=== PATIENT | female | born 1960 | race Caucasian/White ===

== ENCOUNTER 2020-07-21 16:14 | Emergency (ER) | payer OTHER, SELFPAY ==
[2020-07-21 16:28] VITALS: BP 144/92; PULSE 87; RESP 14; TEMP 36.7; O2SAT 99; BMI 27.7
--- NOTE | 2020-07-21 16:58 | HMH.EDUTC ---
[facility] [place] Disposition Clinical Impression: Muscle cramps Disposition: Home, Self-Care Condition on Discharge: Good Instructions: Nocturnal Leg Cramps Additional Instructions: follow up with pcp if symptoms worsen or do not improve return or be seen in ed Prescriptions: Cyclobenzaprine HCl [Flexeril 10mg tablet] 10 mg PO DAILY 7 Days #7 tab Transmission Status: Pending to [facility] Referrals: John Davenport MD [Primary Care Provider] - Time of Disposition: 17:05 Medical Decision Making - Dameon Inquiry Pt receiving controlled substance: No Vital Signs: 07/21/20 16:28 Temperature 98.1 F Temperature Source Oral Pulse Rate [Right] 87 Respiratory Rate 14 Blood Pressure [Right Arm] 144/92 H Blood Pressure Mean [Right Arm] 109 02 Sat by Pulse Oximetry 99 [facility] [place] HPI - General Chief complaint: Urgent Treatment Center Stated complaint: wants muscle relaxers for shoulder Time Seen by Provider: 07/21/20 16:58 Mode of Arrival: Ambulatory Source of Information: Patient Limitations: No Limitations Description of Symptoms (Recalled from Triage Doc. by RN): pt states the left side of her body is tingling. she says her L leg feels tight and her L arm is hurting. pt states she has been to multiple ERs and had full work ups and all theygive her muscle relaxers. HEENT Symptoms (Recalled from RN notes): No Resp Symptoms (Recalled from RN notes): No Skin Symptoms (Recalled from RN notes): No MS Symptoms (Recalled from RN notes): Yes (L leg tightness and L arm pain) Functional Status (Recalled from RN notes): na - History of Present Illness Provider Complaint: 60 yr old female presents for muscle tightness.pt states the left side of her body is tingling. she says her L leg feels tight and her L arm is hurting for over 5 months worse at night.pt states she has been to multiple ERs and had full work ups and all they give her muscle relaxers that help the issues. - Related Data Previous Rx's Medication Instructions Recorded Hydrocortisone [Hydrocortisone 1% 1 applicatio TP BID #1 tube 04/17/19 Cream 30gm Tube] Cyclobenzaprine HCl [Flexeril 10mg 10 mg PO DAILY 7 Days #7 tab 07/21/20 tablet] Allergies Allergy/AdvReac Type Severity Reaction Status Date / Time No Known Allergies Allergy Verified 07/21/20 16:28 - Worker's Comp Is this a Worker's Comp case?: No [facility] History - Hepatitis A Screen Drug use history?: No High risk sexual behaviors?: No History of sexually transmitted infection?: No Currently employed?: No Childcare worker?: No Do you have indoor plumbing?: Yes Do you have electricity?: Yes Attestation statement:: This patient has been screened for Hepatitis A risk factors. I have reviewed the patient's past medical history: Yes - Social History Alcohol Intake: never Occupational Status: employed ROS Obtained: Yes Systems reviewed as appropriate & no additional complaints - Constitutional Constitutional: Reports system reviewed and no additional complaints, except as docu, Denies fatigue - Eyes Eyes: Reports system reviewed and no additional complaints, except as docu, Denies dry eyes - ENT Ears, Nose, Mouth, and Throat: Reports system reviewed and no additional complaints, except as docu, Denies sore throat - Cardiovascular Cardiovascular: Reports system reviewed and no additional complaints, except as docu, Denies chest pain at rest - Respiratory Respiratory: Reports system reviewed and no additional complaints, except as docu, Denies wheezing - Gastrointestinal Gastrointestingal: Reports: system reviewed and no additional complaints, except as docu. Denies: nausea, vomiting - Genitourinary Female Genitourinary: Reports system reviewed and no additional complaints, except as docu - Musculoskeletal Musculoskeletal: Reports system reviewed and no additional complaints, except as docu, Denies joint pain - Integumentary/Breasts Skin/Breast: Reports syst
[2020-07-21 17:22] VITALS: BP 138/87; PULSE 90; RESP 16; TEMP 36.6
== END 2020-07-21 17:23 | disposition home or self-care (01) ==
PROVIDERS: Emergency Provider Nurse Practitioner Family; PCP Family Medicine
DX: R25.2 Cramp and spasm (principal); M25.512 Pain in left shoulder; R20.2 Paresthesia of skin
CPT/HCPCS: 99202; G0463

== ENCOUNTER 2021-01-01 10:59 | Emergency (ER) | payer OTHER, SELFPAY ==
[2021-01-01 11:55] VITALS: BP 158/83; PULSE 81; RESP 18; TEMP 36.6; O2SAT 100; BMI 27.6
[2021-01-01 12:05] VITALS: BP 158/83; PULSE 81; RESP 16; TEMP 36.7
--- NOTE | 2021-01-01 12:19 | HMH.EDUTC ---
[facility] [place] Disposition Clinical Impression: Bronchitis, Exposure to COVID-19 virus Disposition: Home, Self-Care Condition on Discharge: Good Instructions: Preventing the Spread of Coronavirus Discharge Instructions, DI for COVID-19 (Suspected or Confirmed ), DI for Acute Bronchitis Additional Instructions: Drink plenty of fluids. Take tylenol or ibuprofen for pain or fever. Take the medications as directed. Follow up with your regular doctor. GO TO THE ER FOR ANY WORSENING SYMPTOMS Quarantine until you know the results of your covid-19 test. If it is positive, the health department should call you and give you further instructions about your length of Quarantine and other things. Notify your school or workplace of your results and follow their instructions regarding return to work/school. The cough medication (promethazine dm) will make you drowsy, so don't drive or operate heavy machinery after taking it. Prescriptions: Promethazine/Dextromethorphan [Promethazine-Dm Syrup] 5 ml PO Q6HP PRN #240 ml PRN Reason: Cough [facility]: [facility] Azithromycin [Z-Lamont 250mg Tab*] 250 mg PO UD DOSE PK #6 tab Transmission Status: Pending to [facility] Referrals: John Davenport MD [Primary Care Provider] - Time of Disposition: 12:22 Medical Decision Making - Medical Records Medical records reviewed: No: I reviewed the patient's medical records. - Dameon Inquiry Pt receiving controlled substance: No Vital Signs: 01/01/21 11:55 01/01/21 12:05 Temperature 97.8 F 98.1 F Temperature Source Oral Pulse Rate 81 Pulse Rate [Left] 81 Respiratory Rate 18 16 Blood Pressure 158/83 H Blood Pressure [Right Arm] 158/83 H Blood Pressure Mean [Right Arm] 108 02 Sat by Pulse Oximetry 100 Orders (Tests/Meds): ORDERS Category Date Time Status Covid-19 Nasal PCR ([facility]) Routine Lab 01/01/21 11:55 Received [facility] [place] HPI - General Stated complaint: Coughing Time Seen by Provider: 01/01/21 12:19 Mode of Arrival: Ambulatory Source of Information: Patient Limitations: No Limitations Description of Symptoms (Recalled from Triage Doc. by RN): pt c/o a cough. son is positive for covid. HEENT Symptoms (Recalled from RN notes): No Resp Symptoms (Recalled from RN notes): Yes (cough) Skin Symptoms (Recalled from RN notes): No MS Symptoms (Recalled from RN notes): No Functional Status (Recalled from RN notes): na - History of Present Illness Provider Complaint: She states that since yesterday she has had a nonproductive cough. This cough woke her up several times last night. She denies any fever or chills. She denies any chest pain. She has been vaccinated against covid-19. - Related Data Previous Rx's Medication Instructions Recorded Hydrocortisone [Hydrocortisone 1% 1 applicatio TP BID #1 tube 04/17/19 Cream 30gm Tube] Cyclobenzaprine HCl [Flexeril 10mg 10 mg PO DAILY 7 Days #7 tab 07/21/20 tablet] Azithromycin [Z-Lamont 250mg Tab*] 250 mg PO UD DOSE PK #6 tab 01/01/21 Promethazine/Dextromethorphan 5 ml PO Q6HP PRN #240 ml 01/01/21 [Promethazine-Dm Syrup] Allergies Allergy/AdvReac Type Severity Reaction Status Date / Time No Known Allergies Allergy Verified 07/21/20 16:28 - Worker's Comp Is this a Worker's Comp case?: No [facility] History - Hepatitis A Screen Drug use history?: No High risk sexual behaviors?: No History of sexually transmitted infection?: No Currently employed?: No Childcare worker?: No Do you have indoor plumbing?: Yes Do you have electricity?: Yes Attestation statement:: This patient has been screened for Hepatitis A risk factors. I have reviewed the patient's past medical history: Yes - Social History Alcohol Intake: never Occupational Status: employed ROS Obtained: Yes All systems reviewed & no additional complaints - Constitutional Constitutional: Reports chills, Denies fever(s), Reports poor appetite, R
== END 2021-01-01 12:28 | disposition home or self-care (01) ==
PROVIDERS: Emergency Provider Nurse Practitioner Family; PCP Family Medicine
DX: U07.1 COVID-19 (principal)
CPT/HCPCS: 99202; C9803; G0463; U0003; U0005

== ENCOUNTER 2021-07-01 16:37 | Emergency (ER) | payer OTHER, SELFPAY ==
[2021-07-01 18:00] VITALS: BP 131/86; PULSE 76; RESP 19; TEMP 37; O2SAT 100; BMI 26.5
--- NOTE | 2021-07-01 18:11 | XR_ITS ---
PROCEDURE INFORMATION: Exam: XR Left Knee Exam date and time: 07/01/2021 6:11 PM Age: 61 years old Clinical indication: Pain; Knee; Left TECHNIQUE: Imaging protocol: XR Left knee. Views: 3 views. COMPARISON: No relevant prior studies available. FINDINGS: Bones/joints: Normal. Soft tissues: Normal. IMPRESSION: No acute findings.
--- NOTE | 2021-07-01 18:11 | XR_ITS ---
PROCEDURE INFORMATION: Exam: XR Left Shoulder Exam date and time: 07/01/2021 6:11 PM Age: 61 years old Clinical indication: Pain; Shoulder; Left TECHNIQUE: Imaging protocol: XR Left shoulder. Views: 2 or more views. COMPARISON: No relevant prior studies available. FINDINGS: Bones/joints: Normal. Soft tissues: Normal. IMPRESSION: No acute findings.
--- NOTE | 2021-07-01 18:24 | HMH.EDUTC ---
[facility] [place] Clinical Impression: Tendinopathy of left shoulder, Leg edema, left, Left leg pain Disposition: Home, Self-Care Condition on Discharge: Good Instructions: Shoulder Tendinopathy, DI for Shoulder Pain, DI for Leg Pain Additional Instructions: Rest the extremity. Elevate and rest your leg as much times as possible too. Take the medrol dose pack (steroids) for your shoulder pain. For your leg pain and swelling, I ordered a venous doppler to rule out a blood clot. The hospital cannot do this test until in the morning. They will call you at around 0800 and have you come in then to do it. Follow up with Dr. Beaver (orthopedics) for your shoulder issues. I put in a referral but you need to call his office and schedule an appointment. Follow up with your regular doctor. GO TO THE ER FOR ANY WORSENING SYMPTOMS Prescriptions: methylPREDNISolone [Medrol] 4 mg PO DIRECTED 6 Days #21 packet Transmission Status: Received by [facility]91 Referrals: Jonh Davenport MD [Primary Care Provider] - Darryn Beaver MD [Staff Physician] - Time of Disposition: 19:09 Medical Decision Making - Medical Records Medical records reviewed: No: I reviewed the patient's medical records. - Dameon Inquiry Pt receiving controlled substance: No Vital Signs: 07/01/21 18:00 07/01/21 18:56 Temperature 98.6 F 98.6 F Temperature Source Oral Pulse Rate 76 Pulse Rate [Left Brachial] 76 Respiratory Rate 19 19 Blood Pressure 131/86 Blood Pressure [Left Arm] 131/86 Blood Pressure Mean [Left Arm] 101 Blood Pressure Source [Left Arm] Automatic Cuff Blood Pressure Position [Left Arm] Sitting 02 Sat by Pulse Oximetry 100 Oxygen Delivery Method Room Air - Radiology Data #1 Image(s): Shoulder Image Reviewed: Yes I reviewed the patient's radiology image, Yes I have reviewed radiologist's interpretation Preliminary Findings: No Fracture Seen PROCEDURE INFORMATION: Exam: XR Left Shoulder Exam date and time: 07/01/2021 6:11 PM Age: 61 years old Clinical indication: Pain; Shoulder; Left TECHNIQUE: Imaging protocol: XR Left shoulder. Views: 2 or more views. COMPARISON: No relevant prior studies available. FINDINGS: Bones/joints: Normal. Soft tissues: Normal. IMPRESSION: No acute findings. - US Data US Images: Lower Extremity ED US Reviewed: Yes: I have reviewed the patient's US results, I have viewed radiologist's interpretation Preliminary Findings: Normal/NAD Findings Narrative: FINAL REPORT TECHNIQUE: Color Doppler, duplex Doppler and compression sonography of the left lower extremity deep venous systems was performed. CLINICAL HISTORY: .lt leg pain with chronic swelling FINDINGS: There is no evidence of deep venous thrombosis from the level of the groin to the calf. The veins are patent and compressible. IMPRESSION: No evidence of deep venous thrombosis left lower extremity. Reviewed, Interpreted and Dictated by Dean Powell III, MD Transcribed by Julio Deluca Authenticated by Dean Powell III, MD on 07/02/2021 04:15:59 PM [facility] HPI - General Stated complaint: pain l shoulder and leg Time Seen by Provider: 07/01/21 18:24 Mode of Arrival: Ambulatory Source of Information: Patient Limitations: No Limitations Description of Symptoms (Recalled from Triage Doc. by RN): PATIENT C/O LEFT SHOULDER PAIN AND PAIN BEHIND LEFT KNEE FOR A LONG TIME . NO KNOWN INJURY HEENT Symptoms (Recalled from RN notes): No Resp Symptoms (Recalled from RN notes): No Skin Symptoms (Recalled from RN notes): No MS Symptoms (Recalled from RN notes): No Functional Status (Recalled from RN notes): WNL - History of Present Illness Provider Complaint: She states that for the approx past 2 weeks she has had left left swelling from just below her knee down. She de
[2021-07-01 18:56] VITALS: BP 131/86; PULSE 76; RESP 19; TEMP 37; O2SAT 100
== END 2021-07-01 19:18 | disposition home or self-care (01) ==
PROVIDERS: Emergency Provider Nurse Practitioner Family; PCP Family Medicine
DX: M67.912 Unspecified disorder of synovium and tendon, left shoulder (principal); M79.605 Pain in left leg
CPT/HCPCS: 73030; 73562; 99213; G0463

== ENCOUNTER → 2021-07-02 13:48 | Outpatient (CLI) | payer OTHER, SELFPAY ==
--- NOTE | 2021-07-02 13:52 | CA_ITS ---
FINAL REPORT TECHNIQUE: Color Doppler, duplex Doppler and compression sonography of the left lower extremity deep venous systems was performed. CLINICAL HISTORY: .lt leg pain with chronic swelling FINDINGS: There is no evidence of deep venous thrombosis from the level of the groin to the calf. The veins are patent and compressible. IMPRESSION: No evidence of deep venous thrombosis left lower extremity. Reviewed, Interpreted and Dictated by Dean Powell III, MD Transcribed by Julio Deluca Authenticated by Dean Powell III, MD on 07/02/2021 04:15:59 PM [facility]
== END ==
PROVIDERS: PCP Nurse Practitioner Family; Visit Provider Nurse Practitioner Family
DX: M79.662 Pain in left lower leg (principal); R60.0 Localized edema
CPT/HCPCS: 93971

== ENCOUNTER 2021-10-06 15:23 | Emergency (ER) | payer OTHER, SELFPAY ==
[2021-10-06 15:29] VITALS: BP 188/87; PULSE 114; O2SAT 99
[2021-10-06 15:34] VITALS: BP 188/87; PULSE 102; RESP 16; TEMP 36.9; O2SAT 97; BMI 27.3
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
[2021-10-06 17:30] VITALS: BP 131/69; PULSE 78; O2SAT 100
--- NOTE | 2021-10-06 17:31 | PC.NURSE ---
checked on pt, given blanket for comfort
[2021-10-06 18:00] VITALS: BP 132/67
[2021-10-06 18:10] VITALS: BP 132/67; PULSE 83; RESP 16; TEMP 36.9; O2SAT 100
== END 2021-10-06 18:11 | disposition home or self-care (01) ==
PROVIDERS: Emergency Provider Emergency Medicine; PCP Nurse Practitioner Family
DX: S46.912A Strain of unspecified muscle, fascia and tendon at shoulder and upper arm level, left arm, initial encounter (principal); S20.211A Contusion of right front wall of thorax, initial encounter; S80.212A Abrasion, left knee, initial encounter; V49.49XA Driver injured in collision with other motor vehicles in traffic accident, initial encounter; M24.541 Contracture, right hand; M85.80 Other specified disorders of bone density and structure, unspecified site; M19.012 Primary osteoarthritis, left shoulder
CPT/HCPCS: 71101; 73030; 73130; 73562; 99284

== ENCOUNTER 2022-01-09 20:58 | Emergency (ER) | payer OTHER, SELFPAY ==
[2022-01-09 21:18] VITALS: BP 178/104; PULSE 93; RESP 18; TEMP 36.7; O2SAT 98; BMI 25.7
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
[2022-01-09 21:30] VITALS: BP 158/89; PULSE 89; O2SAT 98
--- NOTE | 2022-01-09 21:56 | CT_ITS ---
PROCEDURE INFORMATION: Exam: CTA Abdomen and Pelvis With Contrast Exam date and time: 01/09/2022 10:36 PM Age: 61 years old Clinical indication: Abnormal findings; Abnormal diagnostic imaging exam; Abnormality: Calcific density noted on lumbar spine exam; Additional info: R/O splenic aneurysm TECHNIQUE: Imaging protocol: Computed tomographic angiography of the abdomen and pelvis with contrast. 3D rendering (Not supervised by radiologist): MIP and/or 3D reconstructed images were created by the technologist. Radiation optimization: All CT scans at this facility use at least one of these dose optimization techniques: automated exposure control; mA and/or kV adjustment per patient size (includes targeted exams where dose is matched to clinical indication); or iterative reconstruction. Contrast material: ISOVUE; Contrast volume: 100 ml; Contrast route: INTRAVENOUS (IV); COMPARISON: CR XR HIP LT 2-3V W/PELVIS 01/09/2022 9:25 PM FINDINGS: Lungs: Clear basilar lung parenchyma. Pleural spaces: No pleural fluid. Heart: Normal heart size. Aorta: No aortic aneurysm. No aortic dissection. Celiac trunk and mesenteric arteries: Exam confirms a medial splenic artery aneurysm measuring 2.0 x 2.3 x 1.9 cm. Dense calcific wall noted. No significant thrombus. Remainder of the splenic artery is tortuous and normal in caliber. Renal arteries: No occlusion or significant stenosis. Right iliac arteries: No occlusion or significant stenosis. Left iliac arteries: No occlusion or significant stenosis. Liver: No mass. Gallbladder and bile ducts: Contracted postprandial gallbladder. Pancreas: Fatty atrophy of the pancreas. Spleen: Unremarkable. No splenomegaly. Adrenal glands: Unremarkable. No mass. Kidneys and ureters: Kidneys enhance symmetrically and demonstrate no evidence of mass, calculus, obstruction, or inflammation. Stomach and bowel: Unremarkable. No obstruction. No mucosal thickening. Appendix: No evidence of appendicitis. Intraperitoneal space: Unremarkable. No free air. No significant fluid collection. Lymph nodes: Unremarkable. No enlarged lymph nodes. Urinary bladder: Unremarkable. No mass. Reproductive: Unremarkable as visualized. Bones/joints: Normal appearance of the visualized ribs and lower thoracic spine. Lumbar spine demonstrates very mild endplate spurring. Spinal canal is widely patent. Neural foramina are patent throughout. Left greater than right sacroiliac osteoarthritis is noted. Soft tissues: Unremarkable. IMPRESSION: 1. Splenic artery aneurysm is confirmed measuring maximal diameter 2.3 cm. Consider interventional radiology or vascular surgery consultation for elective management. 2. Patent lumbar spinal canal and neural foramina. Left greater than right sacroiliac osteoarthritis.
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
[2022-01-09 22:16] LABS: Basophils # 0.1 K/mm3 (0-0.2); Basophils % 1.1 % (0.1-2.0); Eosinophils # 0.3 K/mm3 (0.0-0.4); Eosinophils % 3.2 % (0.1-12.0); Hematocrit 39.5 % (37.0-47.0); Hemoglobin 13.3 g/dL (12.2-16.2); Lymphocytes # 2.2 K/mm3 (0.7-4.5); Lymphocytes % 24.7 % (10-50); Mean Corpuscular HGB Conc 33.6 g/dL (31.8-35.4); Mean Corpuscular Hemoglobin 31.2 pg (27.0-31.2); Mean Corpuscular Volume 92.8 fl (81-99); Mean Platelet Volume 10.2 fl (7.4-10.4); Monocytes # 0.4 K/mm3 (0.1-1.0); Neutrophils # 5.8 K/mm3 (1.8-7.8); Neutrophils % 66.1 % (37.0-80.0); Platelet Count 250 K/mm3 (142-424); Red Blood Count 4.25 M/mm3 (4.20-5.40); Red Cell Distribution Width 13.7 % (11.5-17.5); White Blood Count 8.9 K/mm3 (4.8-10.8)
[2022-01-09 22:23] LABS: Chloride 99 mmol/L (98-107); Sodium 139 mmol/L (136-145)
[2022-01-09 22:26] LABS: Blood Urea Nitrogen 10 mg/dl (7-17); Creatinine Clearance Estimated 107 mL/min (50-200); Estimated Glomerular Filt Rate 102 ml/min (>60); GFR (African American) 123 ML/MIN (>60)
[2022-01-09 22:27] LABS: Carbon Dioxide 29 mmol/L (22.0-30.0); Glucose 137 mg/dl (74-100)
[2022-01-09 22:30] VITALS: BP 144/80; PULSE 94; O2SAT 98
[2022-01-09 22:32] LABS: C-Reactive Protein 8.3 mg/L (0-4)
[2022-01-09 23:00] VITALS: BP 148/63; PULSE 76; O2SAT 100
[2022-01-09 23:02] LABS: Erythrocyte Sedimentation Rate 40 mm/hr (0-30)
[2022-01-09 23:30] VITALS: BP 127/62; PULSE 67; O2SAT 95
[2022-01-09 23:50] VITALS: BP 148/74; PULSE 77; RESP 16; TEMP 36.6; O2SAT 97
== END 2022-01-09 23:52 | disposition home or self-care (01) ==
PROVIDERS: Emergency Provider Emergency Medicine; PCP Nurse Practitioner Family
DX: M54.40 Lumbago with sciatica, unspecified side (principal); M25.552 Pain in left hip; M25.562 Pain in left knee; I72.8 Aneurysm of other specified arteries; Z79.52 Long term (current) use of systemic steroids
CPT/HCPCS: 72100; 73502; 74174; 80048; 85025; 85651; 86140; 96374; 96375; 99285; Q9967

== ENCOUNTER 2022-01-23 13:00 | Outpatient (RCR) | payer OTHER, SELFPAY ==
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
== END 2022-02-24 11:29 | disposition home or self-care (01) ==
LOC: PT.CARL 13:00
PROVIDERS: PCP Nurse Practitioner Family; Visit Provider Student in an Organized Health Care Education/Training Program
DX: M24.541 Contracture, right hand (principal)
CPT/HCPCS: 97010; 97018; 97110; 97140; 97163

== ENCOUNTER 2022-02-12 11:27 | Emergency (ER) | payer OTHER, SELFPAY ==
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
[2022-02-12 11:42] VITALS: BMI 28.7
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
[2022-02-12 11:43] VITALS: BP 162/85; PULSE 80; RESP 17; TEMP 36.8; O2SAT 99; BMI 28.7
--- NOTE | 2022-02-12 11:58 | PC.NURSE ---
pt to rad
[2022-02-12 12:34] VITALS: BP 159/81; PULSE 82; RESP 18; TEMP 36.8; O2SAT 99
== END 2022-02-12 12:34 | disposition home or self-care (01) ==
PROVIDERS: Emergency Provider Nurse Practitioner Family; PCP Family Medicine
DX: M25.512 Pain in left shoulder (principal); M79.652 Pain in left thigh; V89.2XXA Person injured in unspecified motor-vehicle accident, traffic, initial encounter
CPT/HCPCS: 73030; 73552; 73560; 99213; G0463

== ENCOUNTER 2022-08-09 09:23 | Emergency (ER) | payer OTHER, SELFPAY ==
[2022-08-09 09:26] VITALS: BP 191/105; PULSE 73; RESP 16; TEMP 36.6; O2SAT 100; BMI 25.4
--- NOTE | 2022-08-09 09:39 | XR_ITS ---
PROCEDURE INFORMATION: Exam: XR Left Femur Exam date and time: 08/09/2022 9:41 AM Age: 62 years old Clinical indication: Pain; Knee; Left TECHNIQUE: Imaging protocol: Radiologic exam of the left femur. Views: 2 views. COMPARISON: CR XR FEMUR LT 2V 02/12/2022 11:50 AM FINDINGS: Bones/joints: Unremarkable. No acute fracture. No bony deformity. No bone lesion detected. No significant interval changes. Soft tissues: Unremarkable. IMPRESSION: Normal exam.
--- NOTE | 2022-08-09 09:39 | XR_ITS ---
PROCEDURE INFORMATION: Exam: XR Left Knee Exam date and time: 08/09/2022 9:42 AM Age: 62 years old Clinical indication: Pain; Knee; Left TECHNIQUE: Imaging protocol: Radiologic exam of the left knee. Views: 3 views. COMPARISON: CR XR KNEE LT 2V 02/12/2022 11:51 AM FINDINGS: Bones/joints: There are mild degenerative changes involving the medial knee compartment with some joint space narrowing and subchondral sclerosis. Remainder of the joint surfaces are preserved. No fracture or malalignment. Soft tissue: No significant joint effusion. IMPRESSION: Mild degenerative changes medial knee compartment. No acute abnormalities.
[2022-08-09 10:10] VITALS: BP 191/95; PULSE 73; RESP 16; TEMP 36.6; O2SAT 100; BMI 28.0
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
[2022-08-09 11:15] VITALS: BP 191/95; PULSE 73; RESP 20; TEMP 36.6; O2SAT 100
== END 2022-08-09 11:15 | disposition home or self-care (01) ==
LOC: ER 09:34 → UTC 09:38
PROVIDERS: Emergency Provider Nurse Practitioner Family; PCP Family Medicine
DX: M25.562 Pain in left knee (principal); I10 Essential (primary) hypertension
CPT/HCPCS: 73552; 73562; 99212; 99214; G0463

== ENCOUNTER 2023-09-29 15:33 | Emergency (ER) | payer OTHER, SELFPAY ==
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
--- NOTE | 2023-09-29 15:46 | CT_ITS ---
PROCEDURE INFORMATION: Exam: CTA Head With Contrast, Arteriography Exam date and time: 09/29/2023 4:29 PM Age: 63 years old Clinical indication: Injury or trauma; Blunt trauma; Head and neck; Patient HX: Fall last night; Additional info: Trauma, critical injury suspected TECHNIQUE: Imaging protocol: Computed tomographic angiography of the head with contrast. Exam focused on the arteries. 3D rendering (Not supervised by radiologist): MIP and/or 3D reconstructed images were created by the technologist. Radiation optimization: All CT scans at this facility use at least one of these dose optimization techniques: automated exposure control; mA and/or kV adjustment per patient size (includes targeted exams where dose is matched to clinical indication); or iterative reconstruction. Contrast material: IOSVUE 370; Contrast volume: 100 ml; Contrast route: INTRAVENOUS (IV); COMPARISON: CT HEAD/BRAIN WO CON 09/29/2023 4:26 PM FINDINGS: ANTERIOR CIRCULATION: Right internal carotid artery: Moderate calcific atherosclerotic disease of the right intracranial ICA resulting in moderate stenosis of the ophthalmic segment. Right middle cerebral artery: No occlusion or significant stenosis. No aneurysm. Right anterior cerebral artery: No occlusion or significant stenosis. No aneurysm. Left internal carotid artery: Moderate calcific atherosclerotic disease of the left intracranial ICA resulting in moderate stenosis of the ophthalmic segment. Left middle cerebral artery: No occlusion or significant stenosis. No aneurysm. Left anterior cerebral artery: No occlusion or significant stenosis. No aneurysm. POSTERIOR CIRCULATION: Right vertebral artery: No occlusion or significant stenosis. No aneurysm. Left vertebral artery: No occlusion or significant stenosis. No aneurysm. Basilar artery: No occlusion or significant stenosis. No aneurysm. Right posterior cerebral artery: No occlusion or significant stenosis. No aneurysm. Left posterior cerebral artery: No occlusion or significant stenosis. No aneurysm. Brain: No definite mass, mass effect, or midline shift. Cerebral ventricles: No ventriculomegaly. Bones/joints: Unremarkable. No acute fracture. Soft tissues: Low volume subcutaneous hematoma involving the posterior parietal soft tissues. IMPRESSION: 1. Moderate calcific atherosclerotic disease of the right intracranial ICA resulting in moderate stenosis of the ophthalmic segment. 2. Moderate calcific atherosclerotic disease of the left intracranial ICA resulting in moderate stenosis of the ophthalmic segment.
[2023-09-29 15:50] VITALS: BP 202/100; PULSE 92; RESP 18; O2SAT 98; BMI 27.4
--- NOTE | 2023-09-29 15:51 | ECG_ITS ---
APPROVED REPORT Exam: Resting ECG HR:98 bpm ECG Measurements Heart Rate 98 AXES MT 149 P 46 QRSd 73 QRS 41 QT 358 T 36 QTc 414 Conclusion SINUS RHYTHM NORMAL ECG Electronically signed by : SANJAY KAMARA, 09/29/2023 20:18:48
[2023-09-29 16:00] VITALS: BP 190/93; PULSE 83; RESP 20; O2SAT 99
[2023-09-29 16:07] LABS: Basophils % 0.7 % (0.1-2.0); Eosinophils # 0.1 K/mm3 (0.0-0.4); Eosinophils % 1.9 % (0.1-12.0); Hematocrit 39.5 % (37.0-47.0); Hemoglobin 13.1 g/dL (12.2-16.2); Lymphocytes # 1.7 K/mm3 (0.7-4.5); Lymphocytes % 26.6 % (10-50); Mean Corpuscular HGB Conc 33.1 g/dL (31.8-35.4); Mean Corpuscular Hemoglobin 31.1 pg (27.0-31.2); Mean Corpuscular Volume 93.9 fl (81-99); Mean Platelet Volume 9.8 fl (7.4-10.4); Monocytes # 0.3 K/mm3 (0.1-1.0); Monocytes % 5.2 % (1.7-9.3); Neutrophils # 4.1 K/mm3 (1.8-7.8); Neutrophils % 65.6 % (37.0-80.0); Platelet Count 245 K/mm3 (142-424); Red Cell Distribution Width 13.8 % (11.5-17.5); White Blood Count 6.3 K/mm3 (4.8-10.8)
[2023-09-29 16:12] LABS: Chloride 104 mmol/L (98-107); Potassium 3.7 mmoL/L (3.5-5.1); Prothrombin Time 10.8 seconds (10.1-12.5); Sodium 142 mmol/L (136-145)
[2023-09-29 16:14] LABS: Alanine Aminotransferase 23 U/L (12-78); Aspartate Amino Transferase 31 U/L (14-36); Blood Urea Nitrogen 4 mg/dl (7-17); Creatinine Clearance Estimated 63 mL/min (50-200); Estimated Glomerular Filt Rate 125 ml/min (>60); GFR (African American) 151 ML/MIN (>60)
[2023-09-29 16:15] LABS: Albumin Level 4.5 g/dl (3.5-5.0); Albumin/Globulin Ratio 1.3 (1.1-1.8); Alkaline Phosphatase 53 U/L (38-126); Anion Gap 13.7 mEq/L (5-15); Bilirubin,Total 0.5 mg/dl (0.2-1.3); Calcium 9.3 mg/dl (8.4-10.2); Carbon Dioxide 28 mmol/L (22.0-30.0); Globulin 3.5 g/dL (1.3-3.2); Glucose 150 mg/dl (74-100)
[2023-09-29] MEDS: IOPAMIDOL-370 (76%);100ML BOTTLE 100 ML IV (16:34)
[2023-09-29] MEDS: SODIUM CHLORIDE 0.9% 10ML SYR (RAD ONLY) 10 ML IV (16:34)
[2023-09-29] MEDS: 0.9 % SODIUM CHLORIDE 50 ML VIAL IV (16:34)
[2023-09-29 16:45] LABS: Thyroid Stimulating Hormone 1.31 uIU/mL (0.465-4.68)
[2023-09-29 17:00] VITALS: BP 159/76; PULSE 86; RESP 17; O2SAT 98
[2023-09-29] MEDS: LACTATED RINGERS 1000ML 1,000 ML 999 ML IV (17:09)
[2023-09-29 17:10] LABS: Microscopic, Urine URINE MICROSCOPIC (MICROSCOPIC)
[2023-09-29] MEDS: ACETAMINOPHEN 1,000MG/100ML VIAL 1000 MG IV (17:10)
[2023-09-29 17:12] LABS: Appearance,Urine CLEAR (Clear); Bilirubin,Urine Negative (Negative); Blood, Urine Negative (Negative); Color,Urine YELLOW (Yellow); Glucose,Urine (UA) Negative (Negative); Ketones,Urine Negative (Negative); Leukocyte Esterase,Urine 2+ (Negative); Nitrate,Urine Negative (Negative); PH,Urine 6.5 (5.0-8.5); Protein,Urine Negative (Negative); Specific Gravity, Urine <= 1.005 (1.005-1.030); Urobilinogen,Urine 0.2 EU/dl (0.2)
[2023-09-29] MEDS: ASPIRIN 81MG CHEWABLE TABLET 81 MG PO (17:19)
--- NOTE | 2023-09-29 17:38 | PC.NURSE ---
Called lab to check time remaining of [facility]A-[facility], states reading it right now .
[2023-09-29 17:41] LABS: Bacteria,Urine 4+ /lpf
[2023-09-29] MEDS: SULFA/TRIMETHOPRIM 1 TABLET 1 EACH PO (17:46)
[2023-09-29 17:52] VITALS: BP 166/89; PULSE 85; RESP 20; TEMP 36.6; O2SAT 99
--- NOTE | 2023-09-30 09:24 | PC.NURSE ---
urine culture discussed with , pt dc with bactdm, torsten until final report
--- NOTE | 2023-10-01 08:35 | PC.NURSE ---
final report shows sensitive for bactrim, reviewed with , NTD
== END 2023-09-29 18:05 | disposition home or self-care (01) ==
PROVIDERS: Physician Assistant; Emergency Provider Emergency Medicine; PCP Family Medicine
DX: R47.81 Slurred speech (principal); M99.07 Segmental and somatic dysfunction of upper extremity; R42 Dizziness and giddiness; R51.9 Headache, unspecified; N39.0 Urinary tract infection, site not specified; B96.29 Other Escherichia coli [E. coli] as the cause of diseases classified elsewhere; I10 Essential (primary) hypertension; Z86.73 Personal history of transient ischemic attack (TIA), and cerebral infarction without residual deficits; W19.XXXA Unspecified fall, initial encounter
CPT/HCPCS: 70450; 70496; 70498; 72125; 80053; 81001; 83735; 84443; 85025; 85610; 87086; 87088; 87186; 93005; 96361; 96374; 99285; J0131; J7120; Q9967

== ENCOUNTER 2023-09-30 11:47 | Outpatient (CLI) | payer OTHER, SELFPAY ==
--- NOTE | 2023-09-30 11:55 | XR_ITS ---
FINAL REPORT CLINICAL HISTORY: Left knee pain FINDINGS: Left knee Three views were obtained. There is no acute fracture or dislocation. There are mild degenerative changes. Small joint effusion is identified. IMPRESSION: Mild degenerative changes with small joint effusion. Reviewed, Interpreted and Dictated by Dean Powell III, MD Transcribed by Keisha Mckay Authenticated and [facility]
== END 2023-09-30 23:59 | disposition home or self-care (01) ==
PROVIDERS: PCP Family Medicine; Visit Provider Physician Assistant
DX: M25.562 Pain in left knee (principal)
CPT/HCPCS: 73562

== ENCOUNTER 2024-02-06 13:27 | Emergency (ER) | payer OTHER, SELFPAY ==
[2024-02-06 13:38] VITALS: BP 180/90; PULSE 94; RESP 13; TEMP 36.9; O2SAT 99; BMI 24.7
[2024-02-06 13:45] VITALS: BP 163/91; PULSE 86; O2SAT 97
--- NOTE | 2024-02-06 13:45 | PC.NURSE ---
dr molina at bedside
--- NOTE | 2024-02-06 14:00 | CT_ITS ---
PROCEDURE INFORMATION: Exam: CT Lumbar Spine Without Contrast Exam date and time: 02/06/2024 2:16 PM Age: 64 years old Clinical indication: Low back pain TECHNIQUE: Imaging protocol: Computed tomography of the lumbar spine without contrast. Radiation optimization: All CT scans at this facility use at least one of these dose optimization techniques: automated exposure control; mA and/or kV adjustment per patient size (includes targeted exams where dose is matched to clinical indication); or iterative reconstruction. COMPARISON: CR XR LUMBAR SPINE 2-3V 01/09/2022 9:25 PM FINDINGS: Bones/joints: There is no evidence of acute fracture.There is no evidence of malalignment or dislocation. Mild Broad-based disc bulge at L3/L4 and L4/L5 and L5/S1 consistent with degenerative disc disease. Pancreas: Pancreatic atrophy Soft tissues: Unremarkable. IMPRESSION: 1. There is no evidence of acute fracture.There is no evidence of malalignment or dislocation. 2. Mild Broad-based disc bulge at L3/L4 and L4/L5 and L5/S1 consistent with degenerative disc disease.
--- NOTE | 2024-02-06 14:00 | CT_ITS ---
PROCEDURE INFORMATION: Exam: CT Thoracic Spine Without Contrast Exam date and time: 02/06/2024 2:13 PM Age: 64 years old Clinical indication: Pain in thoracic spine; Additional info: Back pain TECHNIQUE: Imaging protocol: Computed tomography of the thoracic spine without contrast. Radiation optimization: All CT scans at this facility use at least one of these dose optimization techniques: automated exposure control; mA and/or kV adjustment per patient size (includes targeted exams where dose is matched to clinical indication); or iterative reconstruction. COMPARISON: CT CERVICAL SPINE WO CON 09/29/2023 4:28 PM FINDINGS: Bones/joints: There is no evidence of acute fracture.There is no evidence of malalignment or dislocation. Anterior osteophyte formation along the thoracic spine Soft tissues: Unremarkable. IMPRESSION: There is no evidence of acute fracture.There is no evidence of malalignment or dislocation.
[2024-02-06] MEDS: LIDOCAINE 5% TRANSDERMAL PATCH 1 EACH TP (14:08)
[2024-02-06] MEDS: DEXAMETHASONE 4MG/ML 1ML VIAL 10 MG IM (14:08)
[2024-02-06] MEDS: ACETAMINOPHEN 500MG TAB 1000 MG PO (14:09)
--- NOTE | 2024-02-06 14:11 | PC.NURSE ---
dr molina speaking with dr de luna, who is direct support professional for dr villalpando
--- NOTE | 2024-02-06 14:13 | PC.NURSE ---
on phone with dr villalpando
--- NOTE | 2024-02-06 14:14 | PC.NURSE ---
pt to scan via stretcher
--- NOTE | 2024-02-06 14:15 | PC.NURSE ---
dr molina speaking with dr gore
[2024-02-06 14:20] VITALS: BP 150/83; PULSE 92; O2SAT 100
--- NOTE | 2024-02-06 14:22 | PC.NURSE ---
dr molina at bedside to update pt and family
--- NOTE | 2024-02-06 14:29 | HMH.EDGENADL ---
Discharge Plan Disposition Patient Disposition: Home, Self-Care Prescriptions Prescriptions: New lidocaine 4 % adhesive patch,medicated 1 patch topical DAILY Qty: 5 0RF Rx Instructions: may leave on for up to 12 hrs prednisone 50 mg tablet 50 mg PO DAILY 5 Days Qty: 5 0RF Rx Instructions: Please begin 1 day after ED visit cyclobenzaprine 5 mg tablet 5 mg PO TID PRN (Reason: muscle spasm) 5 Days Qty: 15 0RF No Action aspirin 81 mg tablet,delayed release (DR/EC) 81 mg PO DAILY lisinopril 10 mg tablet 10 mg PO DAILY Qty: 90 1RF rosuvastatin 10 mg tablet 10 mg PO DAILY Qty: 90 1RF sulfamethoxazole-trimethoprim [Bactrim DS] 800-160 mg tablet 1 tab PO BID 10 Days Qty: 20 0RF Referrals Follow up/Referrals: Dean Ambriz MD [Staff Physician] - See instructions Rogelio Hernandez MD [Primary Care Provider] - See instructions Activity Restrictions/Add. Instructions Additional Instructions/Restrictions: As discussed with your worsening sciatica and the chronicity of this also in the setting of concern for possible breast cancer you certainly need an outpatient MRI of your thoracic and lumbar spine. Please continue to discuss this with your primary care doctor and if you continue to get pushback from your insurance company I recommend that you are physician personally discussed this with them. No definitive evidence of metastatic lesions in your CAT scans today. Regarding the hyperdense tissue/mass in your left breast I discussed the case with Dr. Ambriz who is agreeable to see you in his clinic and work this up further. Please call your primary care doctor and Dr. Ambriz for next available appointment on Thursday. You may take Tylenol in addition to the prescribed medications. Clinical Impressions Clinical Impression: Sciatica, Breast mass, left Print Language Print Language: Mauritian Discharge ED Provider: Geovanny Samano General Adult HPI General Chief complaint: PAIN Stated complaint: Pain in back and L leg, balance off Time Seen by Provider: 02/06/24 13:36 Mode of Arrival: Wheelchair Source of Information: Patient Limitations: No Limitations Description of Symptoms (Recalled from ER Triage Doc. by RN): pt presents to ED with c/o left lower back pain with radiation into left leg, ongoing since 2020. pts daughter at bedside reports pt has lump on left breat, while pt was being seen by pcp a few months ago pt refused examination. History of Present Illness HPI narrative: Patient is a 64-year-old with a history of stroke with chronic dysarthria presenting today with her daughter and friend with multiple complaints. She has been having several years of lower back pain radiating into her left leg which has been chronically worsening to the point where she is having difficulty walking secondary to the pain. She denies any saddle anesthesia, lower extremity weakness, bowel or bladder incontinence that is new recently, definitive history of cancer or fevers recently. Her second complaint today is that her family recently noticed a mass on her left breast they are unsure as to how long this has been there she is never had a mammogram or any type of diagnostic imaging in the past. Regarding the back pain they state that they recently had an MRI that was ordered but her insurance declined this. She does believe that she has had CT imaging in the past but does not recall exactly when this was. Related Data Home Medications ?Medication ?Instructions ?Recorded ?Confirmed aspirin 81 mg tablet,delayed 81 mg PO DAILY 10/01/23 10/01/23 release Previous Rx's ?Medication ?Instructions ?Recorded sulfamethoxazole 800 1 tab PO BID 10 days #20 tabs 09/29/23 mg-trimethoprim 160 mg tablet (Bactrim DS) lisinopril 10 mg tablet 10 mg PO DAILY #90 tabs 10/01/23 rosuvastatin 10 mg tablet 10 mg PO DAILY #90 tabs 10/01/23 cyclobenzaprine 5 mg tablet 5 mg PO TID PRN muscle spasm 5 02/06/24 days #15 tabs lidocaine 4 % topical patch 1 patch topical DAILY #5 ea 02/06/24 prednisone 50 mg tablet 50 mg PO DAILY 5 days #5 tabs 02/06/24 Allergies Allergy/AdvReac Type Severity Reaction Status Date / Time ibuprofen [From Advil] Allergy Swelling Verified 10/01/23 11:21 of Lip/Tongue/Throat [facility] Disclaimer: The information contained in this section may have been updated after the patient was seen, as this information can be updated by other users. Medical History Hypertension Splenic artery aneurysm Family History Father Heart attack Mother Heart attack Brother Cancer Social History Smoking Status: Never smoker alcohol intake: never current occupational status: disabled Travel in the last 8 weeks: None household members: children housing: house Other Medical History Have you received the Flu Vaccine for this season: Yes Have you received the Pneumonia Vaccine: No ROS Obtained: Yes All systems reviewed & no additional complaints except as documented Physical Exam General General appearance: alert and in no apparent distress Expanded Chest Exam Female Torso: 1. 2 x 2 cm area of hyperdense mass that is nonmobile no superficial areas of erythema or tenderness or abnormalities in the nipple or areola Respiratory Respiratory exam: Present normal lung sounds bilaterally Cardiovascular Cardiovascular exam: Present regular rate and normal rhythm Back Exam Back exam: Present other (No midline back pain in the thoracic or lumbar spine no paraspinal tenderness bilateral lower extremity neurovascular exam specifically motor exam is normal) Neurological Exam Neurological exam: Present alert and oriented X3; Absent motor sensory deficit Medical Decision Making Medical Records Screening: Per USPSTF and CDC recommendations, given the prevalence of disease in our region, it is our hospital?s policy to screen for HIV and viral Hepatitis for all patients aged 18 and over and those with ongoing risk factors. [place] Inquiry Pt receiving controlled substance: No Vital Signs: 02/06/24 13:38 02/06/24 13:45 Temperature 98.4 F Temperature Source Oral Pulse Rate 86 Pulse Rate [Left Radial] 94 H Respiratory Rate 13 Blood Pressure 163/91 H Blood Pressure [Right Arm] 180/90 H Blood Pressure Mean [Right Arm] 120 02 Sat by Pulse Oximetry 99 97 Oxygen Delivery Method Room Air Room Air Orders (Tests/Meds): ED MEDICATIONS Discontinued Medications Generic Name Dose Route Start Last Admin Trade Name Freq PRN Reason Stop Dose Admin Acetaminophen 1,000 mg 02/06/24 14:03 02/06/24 14:09 Acetaminophen 500mg Tab PO 02/06/24 14:04 1,000 mg ONCE ONE Administration Dexamethasone Sodium Phosphate 10 mg 02/06/24 14:00 02/06/24 14:08 Dexamethasone 4mg/Ml 1ml Vial IM 02/06/24 14:01 10 mg ONCE ONE Administration Ketorolac Tromethamine 30 mg 02/06/24 14:00 02/06/24 14:05 Ketorolac 30mg/Ml Vial IM 02/06/24 14:01 Not Given ONCE ONE Lidocaine 1 each 02/06/24 14:00 02/06/24 14:08 Lidocaine 5% Transdermal Patch TP 02/06/24 14:01 1 each ONCE ONE Administration ORDERS Category Date Time Status CT lumbar spine wo con Stat Cat Scan 02/06/24 14:[address] thoracic spine wo con Stat Cat Scan 02/06/24 14:00 Taken Medical Decision Narrative: Well-appearing from an acute standpoint 64-year-old here with a new breast mass/hyperdense tissue that has been undifferentiated in addition to chronic sciatica clinically. Given the new concern for possible metastatic cancer noncontrasted CT imaging was ordered to see if there is any definitive osseous lesion I personally interpreted these images and did not see any obvious abnormalities. Patient has a normal neurologic exam. No indication for any emergent MRI at the moment however she certainly does need an MRI given the chronicity of this also the concern for possible metastatic disease in the spine. It is the weekend and I do not have any MRI technicians to obtain that today before I have advised that she closely follow-up with her primary care doctor. I tried to call Dr. Hernandez but Dr. Gerber was on-call for his clinic and I spoke with Dr. Gerber who agrees with the plan and told me to have the patient call first thing on Thursday for an appointment. Regarding the breast mass we both felt that it was most appropriate for the patient to be quickly evaluated with our general surgeon and I spoke with Dr. Ambriz to discuss this further and he agrees with this plan. He states that she can call on Thursday for the next available appointment and he will proceed with diagnostic imaging. Patient was given symptomatic medications in the ED and sent home with this as well return precautions emphasized she was discharged in stable condition. Critical Care Critical Care Time Critical Care Time: No
[2024-02-06 14:33] VITALS: BP 150/83; PULSE 88; RESP 13; TEMP 36.7; O2SAT 98
== END 2024-02-06 14:34 | disposition home or self-care (01) ==
PROVIDERS: Emergency Provider Student in an Organized Health Care Education/Training Program; PCP Family Medicine
DX: M54.30 Sciatica, unspecified side (principal); N63.20 Unspecified lump in the left breast, unspecified quadrant; M54.50 Low back pain, unspecified; M79.605 Pain in left leg; R26.2 Difficulty in walking, not elsewhere classified
CPT/HCPCS: 72128; 72131; 96372; 99284; J1100

== ENCOUNTER 2024-02-23 08:02 | Outpatient (CLI) | payer OTHER, SELFPAY ==
--- NOTE | 2024-02-23 08:06 | US_ITS ---
PROCEDURE INFORMATION: Exam: US Left Breast, Complete MG Left Diagnostic Breast Tomosynthesis Exam date and time: 02/23/2024 9:41 AM Age: 64 years old Clinical indication: Left breast palpable lump TECHNIQUE: Imaging protocol: Complete ultrasound of all four quadrants of the left breast and the retroareolar regions, including ultrasound of the axilla when performed. Left Diagnostic tomosynthesis and 2D mammography including computer-aided detection (CAD) when performed. Unilateral or bilateral exam. Limited assessment due to difficulty positioning the patient. Additionally, right MLO view was not performed due to right arm paralysis COMPARISON: None FINDINGS: MAMMOGRAPHY: Breast composition: There are scattered areas of fibroglandular density. Breast mammogram findings: There is a 1.7 cm palpable spiculated mass in the inner left middle 1/3. This demonstrates features highly suggestive of malignancy. ULTRASOUND: Breast ultrasound findings: Hypoechoic spiculated shadowing palpable vascular mass along the 10 o'clock axis 6 cm from the nipple measures 2.0 x 1.6 x 1.6 cm. This has features highly suggestive of malignancy IMPRESSION: Ultrasound-guided biopsy is recommended to definitively characterize a left 10 o'clock palpable 2 cm mass which demonstrates features highly suggestive of malignancy Images are limited due to patient's upper extremity paralysis. Right MLO view was not performed ASSESSMENT: BI-RADS category 5: Highly suggestive of malignancy
== END 2024-02-23 23:59 | disposition home or self-care (01) ==
LOC: RAD 08:02
PROVIDERS: PCP Family Medicine; Visit Provider Surgery
DX: N63.20 Unspecified lump in the left breast, unspecified quadrant (principal)
CPT/HCPCS: 76641; 77062; 77066; G0279

== ENCOUNTER 2024-03-15 09:39 | Outpatient (CLI) | payer OTHER, SELFPAY ==
--- NOTE | 2024-03-15 09:40 | US_ITS ---
FINAL REPORT CLINICAL HISTORY: left breast mass -- DR.ALEX MARCOS --10:00 FINDINGS: ULTRASOUND-GUIDED LEFT BREAST CORE BIOPSY TECHNIQUE: Limited images were obtained to localize region of interest. The left breast was prepped in a routine sterile fashion and locally anesthetized with 1% lidocaine. Standard written informed consent was obtained. The biopsy needle was positioned within the outer periphery of the lesion. An approximately 2 cm lesion was identified at 10:00 within the left breast. A total of 3 passes were made with a 16 gauge core biopsy needle. A biopsy marker clip was deployed in satisfactory position. The clip was well visualized within the lesion of interest. No mammogram was obtained. Procedure was well tolerated . CONCLUSION: 1. Technically successful ultrasound guided core biopsy of left breast lesion as above. 2. Biopsy marker clip deployed Authenticated and ERN
== END 2024-03-15 23:59 | disposition home or self-care (01) ==
LOC: RAD 09:40
PROVIDERS: PCP Family Medicine; Visit Provider Family Medicine
DX: N63.22 Unspecified lump in the left breast, upper inner quadrant (principal)
CPT/HCPCS: 19083

== ENCOUNTER 2024-05-27 14:11 | Emergency (ER) | payer OTHER, SELFPAY ==
[2024-05-27] VITALS (8 sets, daily range): BP systolic 126–173; BP diastolic 62–81; PULSE 76–92; RESP 19; TEMP 36.7–37; O2SAT 91–98; BMI 21.9
--- NOTE | 2024-05-27 14:24 | [facility].EDGENADL ---
Discharge Plan Disposition Patient Disposition: Home, Self-Care Condition: Good Prescriptions Prescriptions: New ondansetron 4 mg tablet,disintegrating 4 mg PO Q8H PRN (Reason: nausea and vomiting) 4 Days Qty: 12 0RF oseltamivir [Tamiflu] 75 mg capsule 75 mg PO BID 5 Days Qty: 10 0RF No Action aspirin 81 mg tablet,delayed release (DR/EC) 81 mg PO DAILY lisinopril 10 mg tablet 10 mg PO DAILY Qty: 90 1RF rosuvastatin 10 mg tablet 10 mg PO DAILY Qty: 90 1RF codeine-guaifenesin 10-100 mg/5 mL liquid 10 ml PO Q4-6H PRN (Reason: cough) Qty: 120 1RF ondansetron 4 mg tablet,disintegrating 4 mg PO BID PRN (Reason: nausea and vomiting) 5 Days Qty: 10 2RF Referrals Follow up/Referrals: Rogelio Hernandez MD [Primary Care Provider] - See instructions Luis Alberto Sapp MD [Staff Physician] - See instructions Leo Patton MD [Staff Physician] - See instructions Jarad Rhoades MD [Staff Physician] - See instructions Activity Restrictions/Add. Instructions Additional Instructions/Restrictions: You were evaluated in the emergency department today and tested positive for the flu. I feel this is likely a cause of your symptoms. It also looks like you have signs of heart failure with enlarged heart, elevated BNP, and swelling. Please follow-up closely with cardiology for this. I recommend follow-up early next week. You have anemia with a hemoglobin of 9.7, which I also recommend close follow up for. Please also follow-up very closely with your primary care provider. Return to the emergency department for new or worsening symptoms. Clinical Impressions Clinical Impression: Bilateral edema of lower extremity, Generalized weakness, Cough, CHF (congestive heart failure), Influenza A Instructions Patient Instructions: DI for Heart Failure, DI for Influenza -- Adult, DI for Peripheral Edema -- Bilateral Print Language Print Language: [place] Discharge ED Provider: Crystal Phillips Adult HPI <Crystal Phillips MD - Last Filed: 05/27/24 14:51> General Chief complaint: Weakness Stated complaint: fever, cough, weakness Time Seen by Provider: 05/27/24 14:26 Mode of Arrival: Wheelchair Source of Information: Patient and Relative Limitations: No Limitations Description of Symptoms (Recalled from ER Triage Doc. by RN): pt presents to ED with daughter for weakness, cough, bilateral leg and feet swelling. pt was seen by pcp on thursday for this swelling. daughter reports pt began to have increased cough and weakness on thursday. no fevers at home. pt does have contracted right hand and flaccid right arm for hx of CVA. History of Present Illness HPI narrative: 64-year-old female with history of breast cancer, sciatica, CVA, right upper extremity contracture presents to the ER with daughter at bedside concern for cough, congestion, bilateral leg and feet swelling, generalized weakness, body aches, low-grade fever less than 100.4 at home. Patient has been intermittently taking Tylenol for symptoms. Most recent was earlier this morning. Reportedly patient was taken to PCP 5 days ago for bilateral lower extremity swelling. Review of records demonstrates patient was seen by Dr. Hernandez on 05/23/2024 with lower extremity swelling. She has been having difficulty ambulating secondary to back pain but has not had bowel or bladder incontinence. MRI is being arranged outpatient. He suspected that the swelling in the legs is related to being in a dependent position. No labs were performed at that visit. She was newly prescribed hydrocodone acetaminophen for pain management. Reportedly her cough medicine was also refilled according to daughter but does not seem to be controlling her cough at this time. Patient does not complain of any new pain. Daughter has noted that her right eye is red and had mild green discharge earlier today. No eye pain. No recent falls. Reportedly no vomiting or diarrhea, no hematuria or dysuria. No other concerns at this time. Related Data Home Medications ?Medication ?Instructions ?Recorded ?Confirmed aspirin 81 mg tablet,delayed 81 mg PO DAILY 10/01/23 05/27/24 release Previous Rx's ?Medication ?Instructions ?Recorded lisinopril 10 mg tablet 10 mg PO DAILY #90 tabs 10/01/23 rosuvastatin 10 mg tablet 10 mg PO DAILY #90 tabs 10/01/23 codeine 10 mg-guaifenesin 100 mg/5 10 ml PO Q4-6H PRN cough #120 mL 05/16/ mL oral liquid ondansetron 4 mg disintegrating 4 mg PO BID PRN nausea and 05/25/24 tablet vomiting 5 days #10 tabs ondansetron 4 mg disintegrating 4 mg PO Q8H PRN nausea and 05/27/24 tablet vomiting 4 days #12 tabs oseltamivir 75 mg capsule (Tamiflu) 75 mg PO BID 5 days #10 caps 05/27/24 Allergies Allergy/AdvReac Type Severity Reaction Status Date / Time ibuprofen (From Advil) Allergy Swelling Verified 05/27/24 14:23 of Lip/Tongue/Throat PFSH <Crystal Phillips MD - Last Filed: 05/27/24 14:51> PFS Disclaimer: The information contained in this section may have been updated after the patient was seen, as this information can be updated by other users. Medical History Hypertension Splenic artery aneurysm Family History Father Heart attack Mother Heart attack Brother Cancer Social History Smoking Status: Never smoker alcohol intake: never current occupational status: disabled Travel in the last 8 weeks: None household members: children housing: house Have you lived/traveled outside [place] in past 30 days?: No Contact w/someone who lives/traveled outside US past 30 days?: No Exposure to someone with infectious disease in past 14 days?: No Do you have a fever (greater than 100.4 F or 38 C)?: Yes Have you tested positive for COVID-19: No Exposed to someone with COVID-19 in past 14 days?: No Do you have a sore throat?: No Do you have a cough?: Yes Do you have any weakness?: Yes Do you have any diarrhea?: No Are you experiencing any unusual bleeding?: No Do you have any muscle aches/pain?: No Do you have any abdominal pain?: No Are you experiencing loss of taste or smell?: No Other Medical History Have you received the Flu Vaccine for this season: Yes Have you received the Pneumonia Vaccine: No <Crystal Phillips MD - Last Filed: 05/27/24 14:51> ROS Obtained: Yes Systems reviewed as appropriate & no additional complaints except as documented Per HPI Physical Exam <Crystal Phillips MD - Last Filed: 05/27/24 14:51> General General appearance: alert and in no apparent distress Comment: Appears older than stated age Head Head exam: atraumatic and normocephalic Eye Eye exam: Present PERRL, EOMI and conjunctival redness (Right eye with mild mucopurulent discharge) ENT ENT exam: Present mucous membranes moist Neck Neck exam: Present normal inspection and full ROM Chest Chest inspection: Present symmetric chest wall rise Respiratory Respiratory exam: Present normal lung sounds bilaterally and other (No respiratory distress, saturating 97% on room air); Absent respiratory distress, wheezes or stridor Cardiovascular Cardiovascular exam: Present regular rate and normal rhythm Abdominal Exam Abdominal exam: Present soft; Absent distention or tenderness Extremities Exam Extremities exam: Present full ROM and edema (2+ pitting edema in the bilateral lower extremities) Neurological Exam Neurological exam: Present alert and oriented X3; Absent motor sensory deficit (No new motor/sensory deficits, patient has right upper extremity contracture and weakness) Psychiatric Psychiatric exam: Present normal affect and normal mood Skin Skin exam: Present warm and dry Medical Decision Making <Crystal Phillips MD - Last Filed: 05/27/24 14:51> Medical Records Medical records reviewed: Yes I reviewed the patient's medical records. Screening: Per USPSTF and CDC recommendations, given the prevalence of disease in our region, it is our hospital?s policy to screen for HIV and viral Hepatitis for all patients aged 18 and over and those with ongoing risk factors. MR Comment: See HPI [place] Inquiry Pt receiving controlled substance: No Vital Signs: 05/27/24 14:12 05/27/24 14:19 05/27/24 14:30 Temperature 98.6 F Temperature Source Oral Pulse Rate 92 H 92 H Pulse Rate [Left Radial] 90 Respiratory Rate 19 Blood Pressure 152/81 H 173/72 H Blood Pressure [Right Arm] 152/81 H Blood Pressure Mean [Right Arm] 104 02 Sat by Pulse Oximetry 97 96 98 Oxygen Delivery Method Room Air Room Air Room Air 05/27/24 15:00 05/27/24 15:15 05/27/24 16:00 Temperature Temperature Source Pulse Rate 78 84 78 Pulse Rate [Left Radial] Respiratory Rate Blood Pressure 139/69 143/69 H 126/62 Blood Pressure [Right Arm] Blood Pressure Mean [Right Arm] 02 Sat by Pulse Oximetry 94 L 93 L 92 L Oxygen Delivery Method Room Air Room Air Room Air 05/27/24 16:30 Temperature Temperature Source Pulse Rate 76 Pulse Rate [Left Radial] Respiratory Rate Blood Pressure 141/63 H Blood Pressure [Right Arm] Blood Pressure Mean [Right Arm] 02 Sat by Pulse Oximetry 91 L Oxygen Delivery Method Room Air Lab Data Lab Results 05/27/24 14:23: WBC 5.4, RBC 3.16 L, Hgb 9.7 L, Hct 29.6 L, MCV 93.7, MCH 30.7, MCHC 32.8, RDW 13.0, Plt Count 281, MPV 11.0 H, Neut % (Auto) 74.6, Lymph % (Auto) 15.7, [place] % (Auto) 8.7, Eos % (Auto) 0.0 L, Baso % (Auto) 0.6, Neut # (Auto) 4.0, Lymph # (Auto) 0.9, [place] # (Auto) 0.5, Eos # (Auto) 0.0, Baso # (Auto) 0.0, D-Dimer 0.59 H, Sodium 133 L, Potassium 4.3, Chloride 93 L, Carbon Dioxide 28, Anion Gap 16.3 H, BUN 9, Creatinine 0.80, Estimated Creat Clear 49, Estimated GFR 72, Est GFR ( Amer) 88, Glucose 121 H, Calcium 8.6, Total Bilirubin 0.2, AST 34, ALT 22, Alkaline Phosphatase 56, Troponin I < 0.01, NT-Pro-B Natriuret Pep 3780 H, Total Protein 7.0, Albumin 4.2, Globulin 2.8, Albumin/Globulin Ratio 1.5, SARS-CoV-2 (PCR) Not detected, HCV Ab ROLANDO w/Rflx PCR Qn Negative, HIV Ag/Ab Combo Qual Negative, Influenza A Untype (PCR) Detected A, Influenza Type B (PCR) Not detected 05/27/24 14:23 05/27/24 14:23 Orders (Tests/Meds): ED MEDICATIONS Discontinued Medications Generic Name Dose Route Start Last Admin Trade Name Garth PRN Reason Stop Dose Admin Acetaminophen 1,000 mg 05/27/24 14:22 05/27/24 15:06 Acetaminophen 1,000mg/100ml Vial IV 05/27/24 14:23 1,000 mg ONCE ONE Administration Erythromycin 0.5 gm 05/27/24 14:30 05/27/24 15:07 Erythromycin Base 1 Gm Oint...G. OP 05/27/24 14:31 0.5 gm ONCE ONE Administration Lactated Ringer's 1,000 mls @ 999 mls/hr 05/27/24 14:22 05/27/24 15:07 Lactated Ringer's 1000 Ml Bag IV 05/27/24 15:22 999 mls/hr .Q1H1M ONE Administration ORDERS Category Date Time Status CXR --portable [XR chest portable] Stat Exams 05/27/24 14:28 Completed BNP [NT Pro Brain Natriuretic Pep.] Stat Lab 05/27/24 14:23 Completed CBC w/Auto Diff [Complete Blood Count Auto Diff] Stat Lab 05/27/24 14:23 Completed CMP [Comprehensive Metabolic Panel] Stat Lab 05/27/24 14:23 Completed D-Dimer Stat Lab 05/27/24 14:23 Completed HIV Combo Stat Lab 05/27/24 14:23 Completed Hepatitis C Ab Qual. W/ RFX Stat Lab 05/27/24 14:23 Completed Rapid PCR Covid and Flu A/B Stat Lab 05/27/24 14:23 Completed Trop I [Troponin I] Stat Lab 05/27/24 14:23 Completed Troponin I Q3H Lab 05/27/24 17:30 Ordered Troponin I Q3H Lab 05/27/24 20:30 Ordered Medical Decision Narrative: In summary, this 64-year-old female with comorbidities described in the HPI presents to the emergency department today with generalized malaise, body aches, bilateral lower extremity swelling, cough, congestion, subjective fevers. On initial evaluation patient is hemodynamically stable, afebrile, pitting edema in the bilateral lower extremities but cardiopulmonary exam is reassuring, patient has no respiratory distress, lung stern clear throughout, saturating well on room air. Patient is alert and oriented, family reports she is at baseline mentally. She does not have any unilateral swelling in the lower extremities, no redness or heat, no tender palpable cord. Differential diagnosis includes but is not limited to high suspicion for viral syndrome including COVID, influenza, also considered the possibility of pneumonia, lower suspicion for DVT or PE given patient has equal swelling in the bilateral lower extremities, no tachycardia or hypotension, saturating well on room air, however this was still considered and is being evaluated with labs initially. Considered ACS, dehydration, electrolyte abnormality, kidney dysfunction, among others. Based on these concerns, I ordered serum labs, cardiac workup, chest x-ray.. ECG personally interpreted demonstrates normal sinus rhythm, normal axis, rate 85, normal NM and QTc, no STEMI though artifact complicates interpretation. Repeat ECG pending. Patient received IV fluids, IV acetaminophen initially for treatment. Labs personally reviewed demonstrate no leukocytosis, anemia with hemoglobin 9.7, down from September 2023 but no other recent prior comparison, platelet normal, PT/INR normal. Chest x-ray personally interpreted does not demonstrate acute thoracic abnormality the cardiac silhouette is borderline enlarged, radiology read pending. CMP, troponin, BNP, D-dimer, swab pending. Patient handed off to Dr. Barbosa at physician shift change for further management and disposition. <Marcela Barbosa, DO - Last Filed: 05/27/24 16:59> Vital Signs: 05/27/24 14:12 05/27/24 14:19 05/27/24 14:30 Temperature 98.6 F Temperature Source Oral Pulse Rate 92 H 92 H Pulse Rate [Left Radial] 90 Respiratory Rate 19 Blood Pressure 152/81 H 173/72 H Blood Pressure [Right Arm] 152/81 H Blood Pressure Mean [Right Arm] 104 02 Sat by Pulse Oximetry 97 96 98 Oxygen Delivery Method Room Air Room Air Room Air 05/27/24 15:00 05/27/24 15:15 05/27/24 16:00 Temperature Temperature Source Pulse Rate 78 84 78 Pulse Rate [Left Radial] Respiratory Rate Blood Pressure 139/69 143/69 H 126/62 Blood Pressure [Right Arm] Blood Pressure Mean [Right Arm] 02 Sat by Pulse Oximetry 94 L 93 L 92 L Oxygen Delivery Method Room Air Room Air Room Air 05/27/24 16:30 Temperature Temperature Source Pulse Rate 76 Pulse Rate [Left Radial] Respiratory Rate Blood Pressure 141/63 H Blood Pressure [Right Arm] Blood Pressure Mean [Right Arm] 02 Sat by Pulse Oximetry 91 L Oxygen Delivery Method Room Air Lab Data Lab Results 05/27/24 14:23: WBC 5.4, RBC 3.16 L, Hgb 9.7 L, Hct 29.6 L, MCV 93.7, MCH 30.7, MCHC 32.8, RDW 13.0, Plt Count 281, MPV 11.0 H, Neut % (Auto) 74.6, Lymph % (Auto) 15.7, [place] % (Auto) 8.7, Eos % (Auto) 0.0 L, Baso % (Auto) 0.6, Neut # (Auto) 4.0, Lymph # (Auto) 0.9, [place] # (Auto) 0.5, Eos # (Auto) 0.0, Baso # (Auto) 0.0, D-Dimer 0.59 H, Sodium 133 L, Potassium 4.3, Chloride 93 L, Carbon Dioxide 28, Anion Gap 16.3 H, BUN 9, Creatinine 0.80, Estimated Creat Clear 49, Estimated GFR 72, Est GFR ( Amer) 88, Glucose 121 H, Calcium 8.6, Total Bilirubin 0.2, AST 34, ALT 22, Alkaline Phosphatase 56, Troponin I < 0.01, NT-Pro-B Natriuret Pep 3780 H, Total Protein 7.0, Albumin 4.2, Globulin 2.8, Albumin/Globulin Ratio 1.5, SARS-CoV-2 (PCR) Not detected, HCV Ab ROLANDO w/Rflx PCR Qn Negative, HIV Ag/Ab Combo Qual Negative, Influenza A Untype (PCR) Detected A, Influenza Type B (PCR) Not detected Orders (Tests/Meds): ED MEDICATIONS Discontinued Medications Generic Name Dose Route Start Last Admin Trade Name Freq PRN Reason Stop Dose Admin Acetaminophen 1,000 mg 05/27/24 14:22 05/27/24 15:06 Acetaminophen 1,000mg/100ml Vial IV 05/27/24 14:23 1,000 mg ONCE ONE Administration Erythromycin 0.5 gm 05/27/24 14:30 05/27/24 15:07 Erythromycin Base 1 Gm Oint...G. OP 05/27/24 14:31 0.5 gm ONCE ONE Administration Lactated Ringer's 1,000 mls @ 999 mls/hr 05/27/24 14:22 05/27/24 15:07 Lactated Ringer's 1000 Ml Bag IV 05/27/24 15:22 999 mls/hr .Q1H1M ONE Administration ORDERS Category Date Time Status CXR --portable [XR chest portable] Stat Exams 05/27/24 14:28 Completed BNP [NT Pro Brain Natriuretic Pep.] Stat Lab 05/27/24 14:23 Completed CBC w/Auto Diff [Complete Blood Count Auto Diff] Stat Lab 05/27/24 14:23 Completed CMP [Comprehensive Metabolic Panel] Stat Lab 05/27/24 14:23 Completed D-Dimer Stat Lab 05/27/24 14:23 Completed HIV Combo Stat Lab 05/27/24 14:23 Completed Hepatitis C Ab Qual. W/ RFX Stat Lab 05/27/24 14:23 Completed Rapid PCR Covid and Flu A/B Stat Lab 05/27/24 14:23 Completed Trop I [Troponin I] Stat Lab 05/27/24 14:23 Completed Troponin I Q3H Lab 05/27/24 17:30 Ordered Troponin I Q3H Lab 05/27/24 20:30 Ordered ECG Data Tracing #1: I reviewed this ECG and interpreted as documented below: Normal sinus rhythm with ventricular rate of [address] changes concerning for ischemia. Normal axis and intervals ECG initial impression date: 05/27/24 ECG initial impression time: 15:32 Medical Decision Narrative: In summary, this 64-year-old female with comorbidities described in the HPI presents to the emergency department today with generalized malaise, body aches, bilateral lower extremity swelling, cough, congestion, subjective fevers. On initial evaluation patient is hemodynamically stable, afebrile, pitting edema in the bilateral lower extremities but cardiopulmonary exam is reassuring, patient has no respiratory distress, lung stern clear throughout, saturating well on room air. Patient is alert and oriented, family reports she is at baseline mentally. She does not have any unilateral swelling in the lower extremities, no redness or heat, no tender palpable cord. Differential diagnosis includes but is not limited to high suspicion for viral syndrome including COVID, influenza, also considered the possibility of pneumonia, lower suspicion for DVT or PE given patient has equal swelling in the bilateral lower extremities, no tachycardia or hypotension, saturating well on room air, however this was still considered and is being evaluated with labs initially. Considered ACS, dehydration, electrolyte abnormality, kidney dysfunction, among others. Based on these concerns, I ordered serum labs, cardiac workup, chest x-ray.. ECG personally interpreted demonstrates normal sinus rhythm, normal axis, rate 85, normal NM and QTc, no STEMI though artifact complicates interpretation. Repeat ECG pending. Patient received IV fluids, IV acetaminophen initially for treatment. Labs personally reviewed demonstrate no leukocytosis, anemia with hemoglobin 9.7, down from September 2023 but no other recent prior comparison, platelet normal, PT/INR normal. Chest x-ray personally interpreted does not demonstrate acute thoracic abnormality the cardiac silhouette is borderline enlarged, radiology read pending. CMP, troponin, BNP, D-dimer, swab pending. Patient handed off to Dr. Barbosa at physician shift change for further management and disposition. Familia DO: I assumed care of the patient at 1500. CBC demonstrates anemia with hemoglobin 9.7. I do not have any recent labs to compare to except for from September 2023. Patient is stable with no tachycardia, hypotension, or notable sources of bleeding. She denies melena or any other symptoms of bleeding. Chemistry demonstrates mild hyponatremia, mildly low chloride, mildly elevated anion gap, which I feel is likely from intravascular depletion in the setting of poor oral intake. She has an elevated BNP with cardiomegaly noted on chest x-ray, but lung exam is reassuring. No known history of heart failure. I independently interpreted x-ray and did not note any signs of overt pulmonary edema. Given this, I feel she would be appropriate for outpatient follow-up with cardiology for further evaluation and management of this. She did test positive for the flu A, which I feel is likely the culprit and causing her symptoms. Patient was washed in the emergency department for a brief period and did not desaturate, even while sleeping. She is resting comfortably with reassuring vital signs. At this time, I feel she is appropriate for discharge with instructions for supportive management of flu. Given high risk with multiple comorbidities, I prescribed Tamiflu and Zofran. Strict return precautions were given and the patient was discharged after all questions were answered. Critical Care <Crystal Phillips MD - Last Filed: 05/27/24 14:51> Critical Care Time Critical Care Time: No
--- NOTE | 2024-05-27 14:28 | XR_ITS ---
PROCEDURE INFORMATION: Exam: XR Chest Exam date and time: 05/27/2024 2:29 PM Age: 64 years old Clinical indication: Other: Cough leg swelling bilaterally TECHNIQUE: Imaging protocol: Radiologic exam of the chest. Views: 1 view. COMPARISON: CR XR RIBS RT MIN 3V W CXR1V 10/06/2021 4:09 PM FINDINGS: Lungs: Low lung volumes with bronchovascular crowding. No focal consolidation. Pleural spaces: No pneumothorax or pleural effusion. Heart/Mediastinum: Apparent cardiomegaly, accentuated by low volumes. Bones/joints: No acute osseous or soft tissue abnormality. IMPRESSION: 1. Low lung volumes with bronchovascular crowding. 2. Apparent cardiomegaly.
--- NOTE | 2024-05-27 14:30 | PC.NURSE ---
XRAY AT BS
[2024-05-27 14:31] LABS: Coronavirus 19, PCR Not Detected (NotDetected); Influenza B, PCR Not Detected (NotDetected)
[2024-05-27 14:36] LABS: Basophils % 0.6 % (0.1-2.0); Hematocrit 29.6 % (37.0-47.0); Hemoglobin 9.7 g/dL (12.2-16.2); Lymphocytes # 0.9 K/mm3 (0.7-4.5); Lymphocytes % 15.7 % (10-50); Mean Corpuscular HGB Conc 32.8 g/dL (31.8-35.4); Mean Corpuscular Hemoglobin 30.7 pg (27.0-31.2); Mean Corpuscular Volume 93.7 fl (81-99); Monocytes # 0.5 K/mm3 (0.1-1.0); Monocytes % 8.7 % (1.7-9.3); Neutrophils % 74.6 % (37.0-80.0); Platelet Count 281 K/mm3 (142-424); Red Blood Count 3.16 M/mm3 (4.20-5.40); White Blood Count 5.4 K/mm3 (4.8-10.8)
--- NOTE | 2024-05-27 14:44 | ECG_ITS ---
APPROVED REPORT Exam: Resting ECG HR:85 bpm ECG Measurements Heart Rate 85 AXES NM 125 P 56 QRSd 73 QRS 62 QT 354 T 55 QTc 397 Conclusion SINUS RHYTHM MINIMAL ST DEPRESSION [0.025+ mV ST DEPRESSION] No STEMI, difficult interpretation secondary to artifact, see repeat ECG Electronically signed by : GIOVANNI NANCE, 05/28/2024 07:10:46
[2024-05-27 14:47] LABS: Alanine Aminotransferase 22 U/L (12-78); Albumin Level 4.2 g/dl (3.5-5.0); Albumin/Globulin Ratio 1.5 (1.1-1.8); Alkaline Phosphatase 56 U/L (38-126); Anion Gap 16.3 mEq/L (5-15); Aspartate Amino Transferase 34 U/L (14-36); Bilirubin,Total 0.2 mg/dl (0.2-1.3); Blood Urea Nitrogen 9 mg/dl (7-17); Calcium 8.6 mg/dl (8.4-10.2); Carbon Dioxide 28 mmol/L (22.0-30.0); Chloride 93 mmol/L (98-107); Creatinine Clearance Estimated 49 mL/min (50-200); Estimated Glomerular Filt Rate 72 ml/min (>60); GFR (African American) 88 ML/MIN (>60); Globulin 2.8 g/dL (1.3-3.2); Glucose 121 mg/dl (74-100); Potassium 4.3 mmoL/L (3.5-5.1); Sodium 133 mmol/L (136-145)
[2024-05-27 14:52] LABS: D-Dimer 0.59 ug/mL (0.0-0.5)
[2024-05-27 14:55] LABS: Influenza A, PCR Detected (NotDetected)
[2024-05-27 14:58] LABS: NT Pro Brain Natriuretic Pep. 3780 pg/mL (0-125)
[2024-05-27] MEDS: ACETAMINOPHEN 1,000MG/100ML VIAL 1000 MG IV (15:06)
[2024-05-27 15:07] LABS: Troponin I < 0.01 ng/ml (0.00-0.034)
[2024-05-27] MEDS: ERYTHROMYCIN BASE 1 GM OINT...G. 0.5 GM OP (15:07)
[2024-05-27] MEDS: LACTATED RINGERS 1000ML 1,000 ML 999 ML IV (15:07)
--- NOTE | 2024-05-27 15:30 | ECG_ITS ---
APPROVED REPORT Exam: Resting ECG HR:79 bpm ECG Measurements Heart Rate 79 AXES OH 130 P 53 QRSd 71 QRS 63 QT 367 T 48 QTc 402 Conclusion SINUS RHYTHM NORMAL ECG Electronically signed by : GIOVANNI NANCE, 05/28/2024 07:10:22
--- NOTE | 2024-05-27 15:42 | PC.NURSE ---
PT RESTING IN BED TURNED ROOM LIGHT OF PER PT REQUEST CALL LIGHT IN REACH NO OTHER NEEDS AT THIS TIME
[2024-05-27 15:49] LABS: HIV Combo NEGATIVE (Negative)
[2024-05-27 15:56] LABS: Hepatitis C Ab Qual. W/ RFX NEGATIVE (Negative)
== END 2024-05-27 17:41 | disposition home or self-care (01) ==
PROVIDERS: Emergency Provider Emergency Medicine; PCP Family Medicine
DX: J10.1 Influenza due to other identified influenza virus with other respiratory manifestations (principal); I50.9 Heart failure, unspecified; R60.0 Localized edema; R50.9 Fever, unspecified; R53.1 Weakness; R05.9 Cough, unspecified; R09.81 Nasal congestion; M79.10 Myalgia, unspecified site
CPT/HCPCS: 71045; 80053; 83880; 84484; 85025; 85378; 86803; 87389; 87636; 93005; 96361; 96374; 99284; J0131; J7120

== ENCOUNTER 2024-05-28 02:22 | Emergency (ER) | payer OTHER, SELFPAY ==
[2024-05-28 02:30] VITALS: PULSE 84; O2SAT 93
[2024-05-28 02:32] VITALS: BP 143/78; PULSE 85; RESP 20; TEMP 37.1; O2SAT 93; BMI 23.0
--- NOTE | 2024-05-28 02:39 | PC.NURSE ---
Pt assisted out of the car and into a wheelchair. Pt assisted 2 person into stretcher. Pt able to bear weight on left foot. Pt has significant deficits in right arm and leg. Skin pink warm and dry REsp full and easy Speech appropriate but very difficulty to decipher Daughter states this is the patient's normal speech.
[2024-05-28 03:00] VITALS: BP 146/64; PULSE 80; O2SAT 93
--- NOTE | 2024-05-28 03:11 | PC.NURSE ---
REspitory therapy at bedside to give breathing treatments
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
[2024-05-28] MEDS: IPRATROPIUM/ALBUTEROL 3 ML NEB 6 ML IH (03:17)
[2024-05-28 03:30] VITALS: BP 145/71; PULSE 104; O2SAT 93
[2024-05-28] MEDS: AEROCHAMBER/OPTIHALER 1 UNIT MC (04:17)
[2024-05-28] MEDS: ALBUTEROL-HFA 90MCG/PUFF INHALER 8GM 2 PUFF IH (04:17)
[2024-05-28 04:18] VITALS: BP 123/71; PULSE 100; RESP 20; TEMP 37.1; O2SAT 95
--- NOTE | 2024-05-28 04:26 | PC.NURSE ---
Pt assisted to car in wheelchair
== END 2024-05-28 04:26 | disposition home or self-care (01) ==
PROVIDERS: Emergency Provider Emergency Medicine; PCP Family Medicine
DX: R06.02 Shortness of breath (principal); R06.2 Wheezing; J10.1 Influenza due to other identified influenza virus with other respiratory manifestations; R20.2 Paresthesia of skin; R53.1 Weakness
CPT/HCPCS: 99283; J7620

== ENCOUNTER 2024-06-16 11:18 | Outpatient (CLI) | payer OTHER, SELFPAY ==
--- NOTE | 2024-06-16 | CA_ITS ---
APPROVED REPORT Exam: Pharmacologic Technologist: Rupali Allen Ht: 5 ft 3 in Wt: 130 lbs BSA: 1.61 m2 HR: 90 bpm BP: 180/84 mmHg Medical History Medical History: HTN Medications: Aspirin, Lisinopril, Rosuvastatin Allergies: Ibuprofen Cardiac Risk Factors: HTN, FHX of CAD Stress Test Details Test: Lexiscan HR Resting HR: 90 bpm Max Heart Rate (APMHR): 157.489250 bpm Target HR (85% APMHR): 133.271237 bpm Recovery HR: 102 bpm BP Resting BP: 180.0/84.0 mmHg Max BP: 179.0/100.0 mmHg Recovery BP: 172.0/107.0 mmHg ECG Stress ECG Conclusion Pt had no symptoms Lexiscan Electronically signed by : Sofi Rhoades MD 06/19/2024 01:08:50
--- NOTE | 2024-06-16 11:19 | NM_ITS ---
APPROVED REPORT Exam: Nuclear Stress Test Indication: SOB, HTN, High cholesterol, Family history, Edema Patient Location: Outpatient Stress Tech: Rupali Allen RI Tech:Molly Frye, ARRT, RT (R)(N) Ht: 5 ft 1 in Wt: 130 lbs Bra Size: B HR: 95 bpm BP: 180/84 mmHg BSA: 1.57 m2 TID: 1.05 BMI: 24.5 History: SOB, HTN, High cholesterol, Family history, Edema Procedure: Patient received 0.4 mg of intravenous Lexiscan, resting heart rate 95 bpm, resting blood pressure 180/84 mmHg, with Lexiscan maximum heart rate achieved was 121 bpm which is % of the maximum predicted heart rate and blood pressure was 176/103 mmHg. With Lexiscan, patient denied any complaint of chest pain. Cardiac Stress and Resting SPECT Images: Cardiac Stress and Resting SPECT images were obtained using technetium 99m Myoview 28.9 mCi stress and 10.34 mCi at rest. The patient could not lie on her abdomen. Therefore, prone stress imaging could not be performed. This may affect the diagnostic interpretation of the study findings. Resting and stress imaging in supine positions demonstrate no evidence of fixed or reversible perfusion defects. Gated imaging demonstrates normal global and regional LV systolic function. LVEF is calculated at > 75%. Conclusion: No evidence of fixed or reversible perfusion defects. Gated imaging demonstrates normal global and regional LV systolic function. LVEF is calculated at > 75%. Electronically signed by : Sofi Rhoades MD 06/19/2024 01:07:35
--- NOTE | 2024-06-16 12:48 | CA_ITS ---
APPROVED REPORT EXAM: Comprehensive 2D, Doppler, and color-flow Echocardiogram Director Semiconductor: MUNDO Snyder, RVS Ht: 5 ft 3 in Wt: 130lbs BSA: 1.61 BP: 155/74 mmHg Indications: Hx-Stroke with right sided deficit, Wheelchair bound, Dyspnea, Orthopnea, CHF, Hx-PR, Pulmonary edema, HTN, HLD Echo Enhancing Agent Comments: TDS: due to patient factors 2D Dimensions Aortic Root 2.27 cm LA Volume 27.00 mL Left Atrium 2.56 cm EF AP4 43.20 % RVID Base (AP4) 2.96 cm (M/F) 2.5-4.1 GL Strain -17.9 % LVOT 1.42 cm (M/F) 1.5-2.5 M-Mode Dimensions RVDd 1.84 cm (0.9-2.6) LVDd 4.11 cm (3.5-5.7) Ao Diam 2.59 cm (2.0-3.7) LVDs 2.84 cm (3.5-5.7) IVSd 0.64 cm (0.6-1.1) PWd 0.53 cm (0.6-1.1) EF (Teich) 59.00% EPSs 0.50 cm FS 30.90% EDV (Teich) 74.70 mL TAPSE 1.75 (<1.7) ESV (Teich) 30.60 mL LV Diastology E Decel Time 217 (160-240 msec) E/A Ratio 0.91 MED E' 7.2 (>= 7 cm/sec) MED A' 9.80 cm/s E'/MED E' Ratio 14.68 (<= 14) LAT E' 9.3 (>= 10 cm/sec) LAT A' 8.40 cm/s E/LAT E' Ratio 11.37 (<= 14) Aortic Valve LVOT Max 138.0 (70-110 cm/s) LVOT VTI 26.02 cm AoV Peak Sergey. 142.0 (50-130 cm/s) AO Peak GR. 7.70 mmHg AO Mean GR. 4.00 (<5 mmHg) AO VTI 25.5 (18-25 cm) IRASEMA (VTI) 1.62 (2.5-4.5 cm2) Mitral Valve MV E Max Sergey. 106.0 (40-130 cm/s) MV A Velocity 116.0 (40-130 cm/s) E/A Ratio 0.91 MV Decel. Time 217 (160-240 ms) Tricuspid Valve TR P. Velocity 174.00 cm/s RAP Estimate 10.00 mmHg RVSP 22.20 mmHg Left Ventricle The left ventricle is normal size. The left ventricular systolic function is normal. The left ventricular ejection fraction is within the normal range. There is normal left ventricular wall thickness. There is normal LV segmental wall motion. LVEF is 60% Right Ventricle Right ventricle is mildly dilated. The right ventricular systolic function is normal. Atria The left atrium size is normal. The right atrium size is normal. There is no Doppler evidence of interatrial shunt. Aortic Valve The aortic valve is mildly thickened. There is no aortic valvular stenosis. Trace aortic regurgitation. Mitral Valve The mitral valve is normal in structure. No evidence of mitral valve stenosis. Trace mitral regurgitation. Tricuspid Valve Tricuspid valve is grossly normal in structure and function. Trace tricuspid regurgitation but there is insufficient TR jet to estimate RVSP. Pulmonic Valve The pulmonary valve is normal in structure. Trace pulmonic regurgitation. Great Vessels The aortic root is normal in size. IVC is normal in size and collapses >50% with inspiration. Pericardium There is no pericardial effusion. Other Information Study Quality: Fair Conclusion Normal biventricular systolic function. Mild RV dilation. No significant valvular stenosis or regurgitation. Electronically signed by : Sofi Rhoades MD 06/21/2024 13:58:48
[2024-06-16] MEDS: REGADENOSON 0.4MG/5ML SYRINGE 0.4 MG IV (14:24)
[2024-06-16] MEDS: ISOTOPE MYOVIEW (PER STUDY) 1 DOSE IV (14:25)
[2024-06-16] MEDS: SODIUM CHLORIDE 0.9% 10ML SYR (RAD ONLY) 10 ML IV ×2 (14:25)
== END 2024-06-16 23:59 | disposition home or self-care (01) ==
LOC: RAD 11:19
PROVIDERS: PCP Family Medicine; Visit Provider Internal Medicine
DX: R06.02 Shortness of breath (principal); I25.2 Old myocardial infarction; R06.01 Orthopnea
CPT/HCPCS: 78452; 93017; 93018; 93306; A9502; J2785

== ENCOUNTER 2024-06-21 14:20 | Outpatient (CLI) | payer OTHER, SELFPAY ==
[2024-06-21 15:31] LABS: Basophils % 0.5 % (0.1-2.0); Eosinophils # 0.2 K/mm3 (0.0-0.4); Eosinophils % 2.1 % (0.1-12.0); Hematocrit 35.7 % (37.0-47.0); Lymphocytes # 2.6 K/mm3 (0.7-4.5); Lymphocytes % 31.5 % (10-50); Mean Corpuscular HGB Conc 33.6 g/dL (31.8-35.4); Mean Corpuscular Hemoglobin 30.8 pg (27.0-31.2); Mean Corpuscular Volume 91.5 fl (81-99); Mean Platelet Volume 12.4 fl (7.4-10.4); Monocytes # 0.6 K/mm3 (0.1-1.0); Monocytes % 7.5 % (1.7-9.3); Neutrophils # 4.8 K/mm3 (1.8-7.8); Platelet Count 275 K/mm3 (142-424); Red Cell Distribution Width 12.7 % (11.5-17.5); White Blood Count 8.2 K/mm3 (4.8-10.8)
[2024-06-21 15:43] LABS: Albumin Level 4.9 g/dl (3.5-5.0); Chloride 97 mmol/L (98-107)
[2024-06-21 15:44] LABS: Potassium 4.4 mmoL/L (3.5-5.1); Sodium 134 mmol/L (136-145)
[2024-06-21 15:46] LABS: Alanine Aminotransferase 20 U/L (12-78); Anion Gap 13.4 mEq/L (5-15); Aspartate Amino Transferase 24 U/L (14-36); Bilirubin,Unconjugated 0.3 mg/dL (0.0-1.1); Blood Urea Nitrogen 8 mg/dl (7-17); Carbon Dioxide 28 mmol/L (22.0-30.0); Estimated Glomerular Filt Rate 72 ml/min (>60); GFR (African American) 88 ML/MIN (>60); Total Protein,Serum 7.6 g/dl (6.3-8.2)
[2024-06-21 15:47] LABS: Alkaline Phosphatase 66 U/L (38-126); Bilirubin,Direct 0.2 mg/dl (0.0-0.4); Bilirubin,Indirect 0.3 mg/dL (0.0-0.9); Bilirubin,Total 0.5 mg/dl (0.2-1.3); Calcium 9.7 mg/dl (8.4-10.2); Chol/HDL Ratio 3.6 (1-3.5); Cholesterol 142 mg/dl (140-200); Glucose 111 mg/dl (74-100); HDL Cholesterol 40 mg/dl (40-60); Magnesium 1.8 mg/dl (1.6-2.3); Triglycerides 140 mg/dl (30-150); VLDL Cholesterol 28 mg/dL (0-40)
[2024-06-21 16:00] LABS: Direct LDL Cholesterol 62.46 mg/dL (100-129)
[2024-06-21 16:01] LABS: Free T4 (Free Thyroxine) 1.48 ng/dl (0.78-2.19)
[2024-06-21 16:16] LABS: Thyroid Stimulating Hormone 0.74 uIU/mL (0.465-4.68)
== END 2024-06-21 23:59 | disposition home or self-care (01) ==
LOC: LAB 14:21
PROVIDERS: PCP Family Medicine; Visit Provider Internal Medicine
DX: Z01.810 Encounter for preprocedural cardiovascular examination (principal); R06.01 Orthopnea; I25.2 Old myocardial infarction; Z86.73 Personal history of transient ischemic attack (TIA), and cerebral infarction without residual deficits; I10 Essential (primary) hypertension; R42 Dizziness and giddiness; R53.1 Weakness; R60.0 Localized edema; R06.02 Shortness of breath
CPT/HCPCS: 36415; 80048; 80061; 80076; 83735; 84439; 84443; 85025

== ENCOUNTER 2024-07-15 12:12 | Outpatient (CLI) | payer OTHER, SELFPAY ==
--- NOTE | 2024-07-15 12:28 | ECG_ITS ---
APPROVED REPORT Exam: Resting ECG HR:88 bpm ECG Measurements Heart Rate 88 AXES OK 154 P 43 QRSd 86 QRS 44 QT 366 T 52 QTc 411 Conclusion SINUS RHYTHM NORMAL ECG UNCONFIRMED REPORT Electronically signed by : Mich Dominique MD 07/15/2024 17:16:37
[2024-07-15 13:06] LABS: Basophils % 0.5 % (0.1-2.0); Eosinophils # 0.2 K/mm3 (0.0-0.4); Eosinophils % 2.6 % (0.1-12.0); Hematocrit 33.9 % (37.0-47.0); Hemoglobin 11.8 g/dL (12.2-16.2); Lymphocytes % 30.1 % (10-50); Mean Corpuscular HGB Conc 34.8 g/dL (31.8-35.4); Mean Corpuscular Hemoglobin 31.2 pg (27.0-31.2); Mean Corpuscular Volume 89.7 fl (81-99); Mean Platelet Volume 12.6 fl (7.4-10.4); Monocytes # 0.5 K/mm3 (0.1-1.0); Monocytes % 8.1 % (1.7-9.3); Neutrophils # 3.9 K/mm3 (1.8-7.8); Neutrophils % 58.5 % (37.0-80.0); Platelet Count 236 K/mm3 (142-424); Red Blood Count 3.78 M/mm3 (4.20-5.40); Red Cell Distribution Width 12.1 % (11.5-17.5); White Blood Count 6.6 K/mm3 (4.8-10.8)
[2024-07-15 13:20] LABS: Alanine Aminotransferase 17 U/L (12-78); Albumin Level 4.7 g/dl (3.5-5.0); Albumin/Globulin Ratio 1.6 (1.1-1.8); Alkaline Phosphatase 47 U/L (38-126); Anion Gap 18.5 mEq/L (5-15); Aspartate Amino Transferase 27 U/L (14-36); Bilirubin,Total 0.7 mg/dl (0.2-1.3); Blood Urea Nitrogen 20 mg/dl (7-17); Calcium 10.2 mg/dl (8.4-10.2); Carbon Dioxide 25 mmol/L (22.0-30.0); Chloride 97 mmol/L (98-107); Estimated Glomerular Filt Rate 50 ml/min (>60); GFR (African American) 61 ML/MIN (>60); Globulin 2.9 g/dL (1.3-3.2); Glucose 86 mg/dl (74-100); Potassium 4.5 mmoL/L (3.5-5.1); Sodium 136 mmol/L (136-145); Total Protein,Serum 7.6 g/dl (6.3-8.2)
== END 2024-07-15 23:59 | disposition home or self-care (01) ==
LOC: PREOP 12:13
PROVIDERS: Nurse Anesthetist, Certified Registered; PCP Family Medicine; Visit Provider Surgery
DX: Z01.810 Encounter for preprocedural cardiovascular examination (principal); Z01.812 Encounter for preprocedural laboratory examination
CPT/HCPCS: 80053; 85025; 93005

== ENCOUNTER 2024-07-18 12:05 | Observation (INO) | payer OTHER, SELFPAY ==
[2024-07-18] VITALS (8 sets, daily range): BP systolic 122–145; BP diastolic 71–80; PULSE 86–100; RESP 16–22; TEMP 36.5–37.2; O2SAT 97–100; BMI 22.6; BMI 24.5
--- NOTE | 2024-07-18 12:10 | ECG_ITS ---
APPROVED REPORT Exam: Resting ECG HR:98 bpm ECG Measurements Heart Rate 98 AXES AL 135 P 57 QRSd 74 QRS 58 QT 357 T 68 QTc 413 Conclusion Sinus rhythm Electronically signed by : NICOLÁS NEFF, 07/19/2024 14:36:04
--- NOTE | 2024-07-18 12:14 | HMH.EDGENADL ---
Discharge Plan Disposition Patient Disposition: Admitted Condition: Fair Clinical Impressions Clinical Impression: Encephalopathy acute, Asthenia Urinary tract infection Qualifiers: Urinary tract infection type: site unspecified Hematuria presence: with hematuria Qualified Code(s): N39.0 - Urinary tract infection, site not specified Discharge ED Provider: Chris Obrien General Adult HPI <YASMIN Garcia - Last Filed: 07/18/24 14:28> General Chief complaint: Neuro Symptoms/Deficit Stated complaint: possible stroke Time Seen by Provider: 07/18/24 12:14 History of Present Illness HPI narrative: Patient presents for evaluation of a possible stroke. Patient has a past medical history of previous stroke with chronic right-sided deficits, history of hypertension, history of splenic artery aneurysm, family history of dementia and cardiovascular disease, and most recently diagnosed with left breast cancer. Her functional baseline up until just a few days ago is patient does have slight slurring of her speech but is awake alert and oriented person place and circumstance and her speech can be understood and she answers questions appropriately. 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 Last known well was Thursday and since then has been intolerant of oral intake with vomiting increasing global ischemia and now cannot walk without assistance. She has worsening of her slurred speech and appears to understand questions but cannot answer due to garbled speech. No specific focal neurologic deficits or complaints including chest pain shortness of breath hemoptysis hematochezia melena hematemesis hematuria dysuria. Related Data Home Medications ?Medication ?Instructions ?Recorded ?Confirmed aspirin 81 mg tablet,delayed 81 mg PO DAILY 10/01/23 07/18/24 release lisinopril 10 mg tablet 20 mg PO DAILY 07/18/24 07/18/24 Previous Rx's ?Medication ?Instructions ?Recorded rosuvastatin 10 mg tablet 10 mg PO DAILY #90 tabs 10/01/23 furosemide 20 mg tablet (Lasix) 20 mg PO DAILY #90 tabs 06/07/24 Allergies Allergy/AdvReac Type Severity Reaction Status Date / Time ibuprofen (From Advil) Allergy Swelling Verified 07/15/24 12:21 of Lip/Tongue/Throat PFSH <YASMIN Garcia - Last Filed: 07/18/24 14:28> [facility] Disclaimer: The information contained in this section may have been updated after the patient was seen, as this information can be updated by other users. Medical History (Updated 07/18/24 @ 20:44 by Onel Elam MD) History of myocardial infarction History of stroke Breast cancer Hypertension Splenic artery aneurysm Surgical History No significant past surgical history Family History Father Heart attack Mother Heart attack Brother Cancer Sister Breast cancer Social History (Updated 07/18/24 @ 16:46 by Caryl East, BILL) Smoking Status: Never smoker alcohol intake: never current occupational status: disabled Travel in the last 8 weeks: None household members: children housing: house Have you lived/traveled outside US in past 30 days?: No Contact w/someone who lives/traveled outside US past 30 days?: No Exposure to someone with infectious disease in past 14 days?: No Do you have a fever (greater than 100.4 F or 38 C)?: No Have you tested positive for COVID-19: No Exposed to someone with COVID-19 in past 14 days?: No Do you have a sore throat?: No Do you have a cough?: No Do you have any weakness?: No Are you experiencing any nausea/vomitting?: No Do you have any diarrhea?: No Are you experiencing any unusual bleeding?: No Do you have any muscle aches/pain?: No Do you have any abdominal pain?: No Are you experiencing loss of taste or smell?: No Other Medical History Have you received the Flu Vaccine for this season: Yes Have you received the Pneumonia Vaccine: No <YASMIN Garcia - Last Filed: 07/18/24 14:28> ROS Obtained: Yes Systems reviewed as appropriate & no additional complaints except as documented Physical Exam <YASMIN Garcia - Last Filed: 07/18/24 14:28> General General appearance: alert and in no apparent distress Respiratory Respiratory exam: Present normal lung sounds bilaterally Cardiovascular Cardiovascular exam: Present regular rate Neurological Exam Neurological exam: Present alert; Absent oriented X3 Medical Decision Making <YASMIN Garcia - Last Filed: 07/18/24 14:28> Medical Records Medical records reviewed: Yes I reviewed the patient's medical records. Screening: Per USPSTF and CDC recommendations, given the prevalence of disease in our region, it is our hospital?s policy to screen for HIV and viral Hepatitis for all patients aged 18 and over and those with ongoing risk factors. [place] Inquiry Pt receiving controlled substance: No Vital Signs: 07/18/24 12:12 07/18/24 12:27 07/18/24 12:30 Temperature 98.9 F Temperature Source Oral Pulse Rate 100 H 92 H Pulse Rate [Left Radial] 86 Respiratory Rate 22 16 20 Blood Pressure 138/78 145/75 H Blood Pressure [Right Arm] 138/71 Blood Pressure Mean [Right Arm] 93 02 Sat by Pulse Oximetry 100 100 100 Oxygen Delivery Method Room Air 07/18/24 12:30 07/18/24 13:30 07/18/24 14:00 Temperature Temperature Source Pulse Rate 89 95 H Pulse Rate [Left Radial] Respiratory Rate 22 18 17 Blood Pressure 134/71 140/79 122/80 Blood Pressure [Right Arm] Blood Pressure Mean [Right Arm] 02 Sat by Pulse Oximetry 100 100 100 Oxygen Delivery Method 07/18/24 14:18 07/18/24 14:58 Temperature 98.2 F Temperature Source Pulse Rate 97 H Pulse Rate [Left Radial] Respiratory Rate 20 Blood Pressure 122/80 Blood Pressure [Right Arm] Blood Pressure Mean [Right Arm] 02 Sat by Pulse Oximetry Oxygen Delivery Method Room Air Room Air Lab Data Lab results reviewed: Yes I reviewed the patient's lab results. Lab Results 07/18/24 12:20: WBC 6.9, RBC 3.95 L, Hgb 12.1 L, Hct 35.2 L, MCV 89.1, MCH 30.6, MCHC 34.4, RDW 12.0, Plt Count 232, MPV 12.7 H, Neut % (Auto) 62.8, Lymph % (Auto) 26.4, [place] % (Auto) 8.2, Eos % (Auto) 2.2, Baso % (Auto) 0.4, Neut # (Auto) 4.3, Lymph # (Auto) 1.8, [place] # (Auto) 0.6, Eos # (Auto) 0.2, Baso # (Auto) 0.0, PT 11.4, INR 1.02, Sodium 134 L, Potassium 4.0, Chloride 96 L, Carbon Dioxide 26, Anion Gap 16.0 H, BUN 21 H, Creatinine 1.00, Estimated Creat Clear 49, Estimated GFR 56 L, Est GFR ( Amer) 68, Glucose 147 H, Calcium 10.2, Magnesium 1.8, Total Bilirubin 0.8, AST 36 D, ALT 27 D, Alkaline Phosphatase 46, Troponin I 0.02, NT-Pro-B Natriuret Pep 430 H, Total Protein 7.8, Albumin 4.5, Globulin 3.3 H, Albumin/Globulin Ratio 1.4, Procalcitonin 0.066 07/18/24 12:27: Urine Color Yellow, Urine Appearance Clear, Urine pH 6.0, Ur Specific [place] 1.025, Urine Protein Trace, Urine Glucose (UA) Negative, Urine Ketones Trace, Urine Blood Negative, Urine Nitrate Positive A, Urine Bilirubin Negative, Urine Urobilinogen 0.2, Ur Leukocyte Esterase 2+ A, Urine RBC None, Urine WBC 10-20, Ur Squamous Epith Cells 3-5, Urine Bacteria 2+ 07/18/24 12:50: SARS-CoV-2 (PCR) Not detected, Influenza A Untype (PCR) Not detected, Influenza Type B (PCR) Not detected 07/19/24 05:17 07/19/24 05:17 Orders (Tests/Meds): ED MEDICATIONS Generic Name Dose Route Start Last Admin Trade Name Freq PRN Reason Stop Dose Admin Acetaminophen 650 mg 07/18/24 20:07 Acetaminophen 325mg Tab PO 08/17/24 20:06 Q4HP PRN Fever or Mild Pain (1-3) Enoxaparin Sodium 40 mg 07/19/24 09:00 Enoxaparin 40mg/0.4ml Syringe SUBCUT 08/18/24 08:59 DAILY ROBEL Sodium Chloride 1,000 mls @ 50 mls/hr 07/18/24 20:45 07/19/24 00:18 Sod Chlor 0.9% 1000ml Bag IV 08/17/24 20:44 50 mls/hr .Q20H ROBEL Administration Ceftriaxone Sodium 1 gm/ 50 mls @ 100 mls/hr 07/19/24 09:00 Sodium Chloride IV 07/29/24 08:59 Q24H ROBEL Ondansetron HCl 4 mg 07/18/24 20:07 Ondansetron 4mg/2ml Vial IV 08/17/24 20:06 Q8HP PRN Nausea Sodium Chloride 10 ml 07/18/24 12:55 07/18/24 12:56 Sodium Chloride 0.9% 10ml Syr (Rad Only) IV 08/17/24 12:54 10 ml NEEDED PRN Administration Maintain IV Site Discontinued Medications Generic Name Dose Route Start Last Admin Trade Name Freq PRN Reason Stop Dose Admin Ceftriaxone Sodium 1 gm/ 50 mls @ 100 mls/hr 07/18/24 13:33 07/18/24 13:46 Sodium Chloride IV 07/18/24 14:02 100 mls/hr ONCE ONE Administration Iopamidol 80 ml 07/18/24 12:55 07/18/24 12:56 Iopamidol-370 (76%);100ml Bottle IV 07/18/24 12:56 80 ml ONCE ONE Administration Metoclopramide HCl 10 mg 07/18/24 12:27 07/18/24 12:34 Metoclopramide Hcl 10mg/2ml Vial IVP 07/18/24 12:28 10 mg ONCE ONE Administration Sodium Chloride 50 ml 07/18/24 12:55 07/18/24 12:56 0.9 % Sodium Chloride 50 Ml Vial IV 07/18/24 12:56 50 ml ONCE ONE Administration ORDERS Category Date Time Status CT angio head Stat Cat Scan 07/18/24 12:[address] angio neck Stat Cat Scan 07/18/24 12:[address] head/brain wo con Stat Cat Scan 07/18/24 12:41 Completed Chest XR -- portable [XR chest portable] Stat Exams 07/18/24 12:55 Completed BNP [NT Pro Brain Natriuretic Pep.] Stat Lab 07/18/24 12:20 Completed CBC w/Auto Diff [Complete Blood Count Auto Diff] Stat Lab 07/18/24 12:20 Completed CMP [Comprehensive Metabolic Panel] Stat Lab 07/18/24 12:20 Completed INR [Prothrombin Time INR] Stat Lab 07/18/24 12:20 Completed Magnesium Stat Lab 07/18/24 12:20 Completed Procalcitonin Stat Lab 07/18/24 12:20 Completed Rapid PCR Covid and Flu A/B Stat Lab 07/18/24 12:50 Completed Trop I [Troponin I] Stat Lab 07/18/24 12:20 Completed Troponin I Q3H Lab 07/18/24 15:35 Completed UA [Urinalysis and Microscopic] Stat Lab 07/18/24 12:27 Completed Blood Culture Stat Micro 07/18/24 12:22 Ordered Urine Culture Stat Micro 07/18/24 12:27 Received Medical Decision Narrative: In summary patient is a 64-year-old female who presents to the emergency department for evaluation of altered mental status signs and symptoms of possible stroke. Patient is initially hemodynamically stable with a blood pressure 138/78 heart rate 100 with normal sinus rhythm on the bedside monitor breathing 22 times a minute satting at 100% on room air upon arrival, afebrile at 98.9. Physical exam reveals a well-nourished well-developed 64-year-old female who is awake and appears alert and in no distress. And trying to get patient to follow commands is intermittent she is able to wiggle her feet but cannot nod her head yes or no to questions if she understands me etc she has global weakness on the right side that appears to be worse than her baseline according to her daughter but also appears to have some weakness on the left side as well without actual focal deficits. Patient's speech is garbled but I can make out yes and no answers but they are not uttered appropriately when asked to say yes or no. Breath sounds clear and equal bilaterally to the bases with adventitious sounds patient has trace bilateral lower extremity edema, she wiggles her toes on Babinski, abdomen soft nontender no rebound or guarding no rigidity bowel sounds normal active.. Differential diagnosis includes encephalopathy versus CVA versus infection versus ACS etc. Initial workup will be conducted with stroke protocol, twelve-lead EKG plain film chest x-ray urinalysis CT of the head without contrast CTA of the head neck respiratory panel for COVID and flu. Initial interventions include fluid bolus and Zofran for now until GAVIN more definitive. Initial workup reviewed by me and her hematologic labs show white count of 6.9 H&H 12.1 and 35.2 respectively with an absolute neutrophil count of 4.3, INR is 1.02, sodium is 134 potassium 4.0 chloride 96 CO2 of 26 gap is 16 BUN is 21 creatinine is 1 GFR is 56 glucose 147 initial troponin is 0.02 NT proBNP is 430 procalcitonin is 0.066 urinalysis is positive for nitrates trace ketones no blood 2+ leukocyte Estrace microscopic exam shows 10-20 white cells 3-5 epithelial cells and 2+ bacteria and a catheterized specimen and her COVID and flu tests are negative. My informed interpretation of her imaging shows no acute intracranial process or large vessel occlusion prior to radiology read.. Patient's initial NIH stroke score is 14 however patient has functional baseline deficits that appear to be worse and thus the only new differences are increasing global weakness inability to ambulate unassisted and increasing slurred speech. Patient's last known well is greater than 48 hours however making her outside of the window of intervention. Given this I had interactive discussion with hospital medicine regarding patient presentation GAVIN and patient management and she will be admitted for further evaluation and care. <Chris Obrien MD - Last Filed: 07/19/24 07:21> Vital Signs: 07/18/24 12:12 07/18/24 12:27 07/18/24 12:30 Temperature 98.9 F Temperature Source Oral Pulse Rate 100 H 92 H Pulse Rate [Left Radial] 86 Respiratory Rate 22 16 20 Blood Pressure 138/78 145/75 H Blood Pressure [Right Arm] 138/71 Blood Pressure Mean [Right Arm] 93 02 Sat by Pulse Oximetry 100 100 100 Oxygen Delivery Method Room Air 07/18/24 12:30 07/18/24 13:30 07/18/24 14:00 Temperature Temperature Source Pulse Rate 89 95 H Pulse Rate [Left Radial] Respiratory Rate 22 18 17 Blood Pressure 134/71 140/79 122/80 Blood Pressure [Right Arm] Blood Pressure Mean [Right Arm] 02 Sat by Pulse Oximetry 100 100 100 Oxygen Delivery Method 07/18/24 14:18 07/18/24 14:58 Temperature 98.2 F Temperature Source Pulse Rate 97 H Pulse Rate [Left Radial] Respiratory Rate 20 Blood Pressure 122/80 Blood Pressure [Right Arm] Blood Pressure Mean [Right Arm] 02 Sat by Pulse Oximetry Oxygen Delivery Method Room Air Room Air Lab Data Lab Results 07/18/24 12:20: WBC 6.9, RBC 3.95 L, Hgb 12.1 L, Hct 35.2 L, MCV 89.1, MCH 30.6, MCHC 34.4, RDW 12.0, Plt Count 232, MPV 12.7 H, Neut % (Auto) 62.8, Lymph % (Auto) 26.4, [place] % (Auto) 8.2, Eos % (Auto) 2.2, Baso % (Auto) 0.4, Neut # (Auto) 4.3, Lymph # (Auto) 1.8, [place] # (Auto) 0.6, Eos # (Auto) 0.2, Baso # (Auto) 0.0, PT 11.4, INR 1.02, Sodium 134 L, Potassium 4.0, Chloride 96 L, Carbon Dioxide 26, Anion Gap 16.0 H, BUN 21 H, Creatinine 1.00, Estimated Creat Clear 49, Estimated GFR 56 L, Est GFR ( Amer) 68, Glucose 147 H, Calcium 10.2, Magnesium 1.8, Total Bilirubin 0.8, AST 36 D, ALT 27 D, Alkaline Phosphatase 46, Troponin I 0.02, NT-Pro-B Natriuret Pep 430 H, Total Protein 7.8, Albumin 4.5, Globulin 3.3 H, Albumin/Globulin Ratio 1.4, Procalcitonin 0.066 07/18/24 12:27: Urine Color Yellow, Urine Appearance Clear, Urine pH 6.0, Ur Specific [place] 1.025, Urine Protein Trace, Urine Glucose (UA) Negative, Urine Ketones Trace, Urine Blood Negative, Urine Nitrate Positive A, Urine Bilirubin Negative, Urine Urobilinogen 0.2, Ur Leukocyte Esterase 2+ A, Urine RBC None, Urine WBC 10-20, Ur Squamous Epith Cells 3-5, Urine Bacteria 2+ 07/18/24 12:50: SARS-CoV-2 (PCR) Not detected, Influenza A Untype (PCR) Not detected, Influenza Type B (PCR) Not detected Orders (Tests/Meds): ED MEDICATIONS Generic Name Dose Route Start Last Admin Trade Name Freq PRN Reason Stop Dose Admin Acetaminophen 650 mg 07/18/24 20:07 Acetaminophen 325mg Tab PO 08/17/24 20:06 Q4HP PRN Fever or Mild Pain (1-3) Enoxaparin Sodium 40 mg 07/19/24 09:00 Enoxaparin 40mg/0.4ml Syringe SUBCUT 08/18/24 08:59 DAILY ROBEL Sodium Chloride 1,000 mls @ 50 mls/hr 07/18/24 20:45 07/19/24 00:18 Sod Chlor 0.9% 1000ml Bag IV 08/17/24 20:44 50 mls/hr .Q20H ROBEL Administration Ceftriaxone Sodium 1 gm/ 50 mls @ 100 mls/hr 07/19/24 09:00 Sodium Chloride IV 07/29/24 08:59 Q24H ROBEL Ondansetron HCl 4 mg 07/18/24 20:07 Ondansetron 4mg/2ml Vial IV 08/17/24 20:06 Q8HP PRN Nausea Sodium Chloride 10 ml 07/18/24 12:55 07/18/24 12:56 Sodium Chloride 0.9% 10ml Syr (Rad Only) IV 08/17/24 12:54 10 ml NEEDED PRN Administration Maintain IV Site Discontinued Medications Generic Name Dose Route Start Last Admin Trade Name Freq PRN Reason Stop Dose Admin Ceftriaxone Sodium 1 gm/ 50 mls @ 100 mls/hr 07/18/24 13:33 07/18/24 13:46 Sodium Chloride IV 07/18/24 14:02 100 mls/hr ONCE ONE Administration Iopamidol 80 ml 07/18/24 12:55 07/18/24 12:56 Iopamidol-370 (76%);100ml Bottle IV 07/18/24 12:56 80 ml ONCE ONE Administration Metoclopramide HCl 10 mg 07/18/24 12:27 07/18/24 12:34 Metoclopramide Hcl 10mg/2ml Vial IVP 07/18/24 12:28 10 mg ONCE ONE Administration Sodium Chloride 50 ml 07/18/24 12:55 07/18/24 12:56 0.9 % Sodium Chloride 50 Ml Vial IV 07/18/24 12:56 50 ml ONCE ONE Administration ORDERS Category Date Time Status CT angio head Stat Cat Scan 07/18/24 12:[address] angio neck Stat Cat Scan 07/18/24 12:[address] head/brain wo con Stat Cat Scan 07/18/24 12:41 Completed Chest XR -- portable [XR chest portable] Stat Exams 07/18/24 12:55 Completed BNP [NT Pro Brain Natriuretic Pep.] Stat Lab 07/18/24 12:20 Completed CBC w/Auto Diff [Complete Blood Count Auto Diff] Stat Lab 07/18/24 12:20 Completed CMP [Comprehensive Metabolic Panel] Stat Lab 07/18/24 12:20 Completed INR [Prothrombin Time INR] Stat Lab 07/18/24 12:20 Completed Magnesium Stat Lab 07/18/24 12:20 Completed Procalcitonin Stat Lab 07/18/24 12:20 Completed Rapid PCR Covid and Flu A/B Stat Lab 07/18/24 12:50 Completed Trop I [Troponin I] Stat Lab 07/18/24 12:20 Completed Troponin I Q3H Lab 07/18/24 15:35 Completed UA [Urinalysis and Microscopic] Stat Lab 07/18/24 12:27 Completed Blood Culture Stat Micro 07/18/24 12:22 Ordered Urine Culture Stat Micro 07/18/24 12:27 Received ECG Data Tracing #1: I reviewed this ECG and interpreted as documented below: (Sinus rhythm 90 bpm with RI interval 135, QRS 74, QTc 413. Normal axis, no acute ischemic change) Medical Decision Narrative: In summary patient is a 64-year-old female who presents to the emergency department for evaluation of altered mental status signs and symptoms of possible stroke. Patient is initially hemodynamically stable with a blood pressure 138/78 heart rate 100 with normal sinus rhythm on the bedside monitor breathing 22 times a minute satting at 100% on room air upon arrival, afebrile at 98.9. Physical exam reveals a well-nourished well-developed 64-year-old female who is awake and appears alert and in no distress. And trying to get patient to follow commands is intermittent she is able to wiggle her feet but cannot nod her head yes or no to questions if she understands me etc she has global weakness on the right side that appears to be worse than her baseline according to her daughter but also appears to have some weakness on the left side as well without actual focal deficits. Patient's speech is garbled but I can make out yes and no answers but they are not uttered appropriately when asked to say yes or no. Breath sounds clear and equal bilaterally to the bases with adventitious sounds patient has trace bilateral lower extremity edema, she wiggles her toes on Babinski, abdomen soft nontender no rebound or guarding no rigidity bowel sounds normal active.. Differential diagnosis includes encephalopathy versus CVA versus infection versus ACS etc. Initial workup will be conducted with stroke protocol, twelve-lead EKG plain film chest x-ray urinalysis CT of the head without contrast CTA of the head neck respiratory panel for COVID and flu. Initial interventions include fluid bolus and Zofran for now until GAVIN more definitive. Initial workup reviewed by me and her hematologic labs show white count of 6.9 H&H 12.1 and 35.2 respectively with an absolute neutrophil count of 4.3, INR is 1.02, sodium is 134 potassium 4.0 chloride 96 CO2 of 26 gap is 16 BUN is 21 creatinine is 1 GFR is 56 glucose 147 initial troponin is 0.02 NT proBNP is 430 procalcitonin is 0.066 urinalysis is positive for nitrates trace ketones no blood 2+ leukocyte Estrace microscopic exam shows 10-20 white cells 3-5 epithelial cells and 2+ bacteria and a catheterized specimen and her COVID and flu tests are negative. My informed interpretation of her imaging shows no acute intracranial process or large vessel occlusion prior to radiology read.. Patient's initial NIH stroke score is 14 however patient has functional baseline deficits that appear to be worse and thus the only new differences are increasing global weakness inability to ambulate unassisted and increasing slurred speech. Patient's last known well is greater than 48 hours however making her outside of the window of intervention. Given this I had interactive discussion with hospital medicine regarding patient presentation GAVIN and patient management and she will be admitted for further evaluation and care. I was consulted by the JENNIFER, and we discussed the complexity of the problems being addressed. I approved the treatment and management plan for this patient's care in the Emergency Department, thus performing a substantive portion of the medical decision making. Chris Obrien MD Critical Care <YASMIN Garcia - Last Filed: 07/18/24 14:28> Critical Care Time Critical Care Time: Yes Attestation: On 07/18/24, the high probability of a clinically significant, sudden or life threatening deterioration of the following system(s) required my full and direct attention, intervention and personal management. The time I documented below is in addition to time spent performing reported procedures but includes the following listed in this critical care notation. Total Time Total Critical Care Time: 35
[2024-07-18 12:32] LABS: Microscopic, Urine URINE MICROSCOPIC (MICROSCOPIC)
[2024-07-18 12:32] LABS: Basophils % 0.4 % (0.1-2.0); Eosinophils # 0.2 K/mm3 (0.0-0.4); Eosinophils % 2.2 % (0.1-12.0); Hematocrit 35.2 % (37.0-47.0); Hemoglobin 12.1 g/dL (12.2-16.2); Lymphocytes # 1.8 K/mm3 (0.7-4.5); Lymphocytes % 26.4 % (10-50); Mean Corpuscular HGB Conc 34.4 g/dL (31.8-35.4); Mean Corpuscular Hemoglobin 30.6 pg (27.0-31.2); Mean Corpuscular Volume 89.1 fl (81-99); Mean Platelet Volume 12.7 fl (7.4-10.4); Monocytes # 0.6 K/mm3 (0.1-1.0); Monocytes % 8.2 % (1.7-9.3); Neutrophils # 4.3 K/mm3 (1.8-7.8); Neutrophils % 62.8 % (37.0-80.0); Platelet Count 232 K/mm3 (142-424); Red Blood Count 3.95 M/mm3 (4.20-5.40); White Blood Count 6.9 K/mm3 (4.8-10.8)
[2024-07-18] MEDS: METOCLOPRAMIDE HCL 10MG/2ML VIAL 10 MG IVP (12:34)
[2024-07-18 12:35] LABS: Appearance,Urine CLEAR (Clear); Bilirubin,Urine Negative (Negative); Blood, Urine Negative (Negative); Color,Urine YELLOW (Yellow); Glucose,Urine (UA) Negative (Negative); Ketones,Urine TRACE (Negative); Leukocyte Esterase,Urine 2+ (Negative); Nitrate,Urine POSITIVE (Negative); Protein,Urine TRACE (Negative); Specific Gravity, Urine 1.025 (1.005-1.030); Urobilinogen,Urine 0.2 EU/dl (0.2)
[2024-07-18 12:37] LABS: INR 1.02 (0.9-1.1); Prothrombin Time 11.4 seconds (10.1-12.5)
[2024-07-18 12:39] LABS: Alanine Aminotransferase 27 U/L (12-78); Albumin Level 4.5 g/dl (3.5-5.0); Albumin/Globulin Ratio 1.4 (1.1-1.8); Alkaline Phosphatase 46 U/L (38-126); Aspartate Amino Transferase 36 U/L (14-36); Bilirubin,Total 0.8 mg/dl (0.2-1.3); Blood Urea Nitrogen 21 mg/dl (7-17); Calcium 10.2 mg/dl (8.4-10.2); Carbon Dioxide 26 mmol/L (22.0-30.0); Chloride 96 mmol/L (98-107); Creatinine Clearance Estimated 49 mL/min (50-200); Estimated Glomerular Filt Rate 56 ml/min (>60); GFR (African American) 68 ML/MIN (>60); Globulin 3.3 g/dL (1.3-3.2); Glucose 147 mg/dl (74-100); Magnesium 1.8 mg/dl (1.6-2.3); Sodium 134 mmol/L (136-145); Total Protein,Serum 7.8 g/dl (6.3-8.2)
--- NOTE | 2024-07-18 12:41 | CT_ITS ---
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 Aortic arch: Arch shows no significant narrowing. Great vessel origins are widely patent . Right carotid: No significant stenosis is seen of the cervical common or internal carotid artery . Left carotid: No significant stenosis is seen of the cervical common or internal carotid artery . Vertebrals: Vertebral arteries are codominant. No significant stenosis is present . There are bilateral thyroid nodules with the largest on the left measuring 12 mm. IMPRESSION: No evidence of carotid stenosis. Multinodular goiter. Consider thyroid ultrasound follow-up. Reviewed, Interpreted and Dictated by Pedro Ramirez MD Transcribed by Betsey Garcia Authenticated and . [facility]
--- NOTE | 2024-07-18 12:41 | CT_ITS ---
FINAL REPORT TECHNIQUE: Multiple axial CT angiography images were performed from the foramen magnum to the vertex before and during IV contrast administration. This study was performed with techniques to keep radiation doses as low as reasonably achievable (ALARA). Individualized dose reduction techniques using automated exposure control or adjustment of mA and/or kV according to the patient's size were employed. CLINICAL HISTORY: Possible stroke, history of old stroke aphasia trouble swallowing last known normal is Thursday night repeating things more frequently FINDINGS: No acute intracranial hemorrhage or large acute cortical infarct. The brain volume is normal for the patient's age. Ventricles are of bracket normal in size and configuration. No midline shift. The basal cisterns are patent. CTA HEAD: The major intracranial arterial system is patent without hemodynamically significant stenosis or major vessel occlusion.No aneurysm is identified. IMPRESSION: No acute intracranial hemorrhage or large acute cortical infarct. No evidence of vascular injury, aneurysm, hemodynamically significant stenosis or major vessel occlusion of the intracranial arterial system. Reviewed, Interpreted and Dictated by Pedro Ramirez MD Transcribed by Betsey Garcia Authenticated and [facility]
--- NOTE | 2024-07-18 12:41 | CT_ITS ---
FINAL REPORT TECHNIQUE: Axial imaging of the head was obtained without contrast. This study was performed with techniques to keep radiation doses as low as reasonably achievable, (ALARA). Individualized dose reduction techniques using automated exposure control or adjustment of mA and/or kV according to the patient''s size were employed. CLINICAL HISTORY: Possible stroke aphasia COMPARISON: 09/29/2023 FINDINGS: Mild atrophy and chronic ischemic white matter changes are noted. There is a chronic lacunar infarct in the left basal ganglia. No cortical edema is present. There is no mass or hemorrhage. Ventricles are normal. Bone windows show no skull fracture or obvious obstructive lesion. IMPRESSION: 1. No acute intracranial abnormality or obvious mass. 2. Atrophy and chronic ischemic white matter changes as above. Reviewed, Interpreted and Dictated by Pedro Ramirez MD Transcribed by Betsey Garcia Authenticated and [facility]
[2024-07-18 12:48] LABS: NT Pro Brain Natriuretic Pep. 430 pg/mL (0-125)
[2024-07-18 12:50] LABS: Troponin I 0.02 ng/ml (0.00-0.034)
[2024-07-18 12:52] LABS: Coronavirus 19, PCR Not Detected (NotDetected); Influenza A, PCR Not Detected (NotDetected); Influenza B, PCR Not Detected (NotDetected)
--- NOTE | 2024-07-18 12:55 | XR_ITS ---
FINAL REPORT TECHNIQUE: Single view chest CLINICAL HISTORY: Possible stroke trouble swallowing last known normal is Thursday night repeating things more frequently COMPARISON: 05/27/2024 FINDINGS: A single view of the chest was obtained. The heart and mediastinum are within normal limits. The lungs are clear. There is no pneumothorax. IMPRESSION: No acute cardiopulmonary process. Reviewed, Interpreted and Dictated by Pedro Ramirez MD Transcribed by Betsey Garcia Authenticated and . [facility]
[2024-07-18 12:56] LABS: Procalcitonin 0.066 ng/mL (0.0-2.0)
[2024-07-18] MEDS: 0.9 % SODIUM CHLORIDE 50 ML VIAL IV (12:56)
[2024-07-18] MEDS: SODIUM CHLORIDE 0.9% 10ML SYR (RAD ONLY) 10 ML IV (12:56)
[2024-07-18] MEDS: IOPAMIDOL-370 (76%);100ML BOTTLE 80 ML IV (12:56)
[2024-07-18 13:26] LABS: Bacteria,Urine 2+ /lpf
--- NOTE | 2024-07-18 13:44 | HMH.PHAINT1 ---
Pharmacy Intervention Comments: MEDICATION RECONCILIATION COMPLETED ON PATIENT USING EXTERNAL FILL HISTORY FROM PHARMACY AND LIST FROM CARDIOLOGY OFFICE. -BOSSMAN LUONG, BRIAND
[2024-07-18] MEDS: CEFTRIAXONE 1 GM 1 GM in 0.9 % SODIUM CHLORIDE 50 ML IV (13:46)
--- NOTE | 2024-07-18 14:06 | PC.NURSE ---
Called MRI to see if they could add on pt for Brain MRI. They are able to work her in. Care Management states no pre-auth required
--- NOTE | 2024-07-18 14:08 | MR_ITS ---
FINAL REPORT TECHNIQUE: Multiplanar MR without contrast CLINICAL HISTORY: Encephalopathy, previous stroke COMPARISON: None FINDINGS: MRI HEAD WITHOUT CONTRAST: Diffusion sequences show no signal abnormality to indicate acute infarct. Scattered periventricular white matter signal changes are seen compatible with moderate chronic ischemic gliotic disease. Mild generalized atrophy is present. No mass, hemorrhage or edema is seen. Ventricles are normal. Major vascular flow voids are intact. IMPRESSION: 1. No mass, acute infarct or hydrocephalus 2. Mild atrophy and moderate chronic ischemic white matter changes Reviewed, Interpreted and Dictated by Pedro Ramirez MD Transcribed by Jamila Parisi Authenticated and [facility]
--- NOTE | 2024-07-18 14:08 | PC.NURSE ---
ION EXCHANGE OPERATOR NOTIFIED OF ADMISSION
--- NOTE | 2024-07-18 14:56 | PC.NURSE ---
CALLED REPORT TO BRADLEY KHAN ON 2ND FLOOR
[2024-07-18 16:13] LABS: Troponin I 0.02 ng/ml (0.00-0.034)
--- NOTE | 2024-07-18 16:52 | HMH.SLDYSPHA ---
Speech & Language Evaluation Speech/Language Dysphagia Evaluation Start: 07/18/24 15:55 Freq: ONCE Status: Active Protocol: Document 07/18/24 16:17 [facility] (Rec: 07/18/24 16:51 [facility] laptop) Dysphagia Assess/Goals/Plan Assessment Date of Evaluation: 07/18/24 Evaluation Type Initial Certification Assessment/Problems swallowing issues, past stroke per MD order Does Patient Qualify for Service Yes Qualify/Failure Comment Based on clinical observations made throughout bedside clinical swallow evaluation and informal language evaluation, pt would benefit from further skilled speech therapy services to target diet texture analysis and expressive language skills and comprehension. Recommendations PHYSICIAN CERTIFICATION: The specified therapy services are required, authorized, and reviewed every 30 days. Pt will be seen # times/week 2 for # weeks 4 Diet Recommendations Pureed Liquid Type Recommendations Normal/Thin SL Swallow Guidelines Assist w/all meals,Alt bite w/ sip thru meal,Standard Aspiration Prec.,Chk mough for pocketing,Crush meds as allowed*,Eat at slow rate,Oral Care Education,Reflux precautions Dysphagia Swallow Precautions/Strategies Sitting Upright (90 deg),Small Bites and Sips,Alternate Liquids/Solids Plan Anticipate reaching STG in # weeks 2 Anticipate reaching LTG in # weeks 4 Pt/Guardian verbally ack understanding Yes of dx/prognosis/goals G -code Required No STG-Other Comment/Non-Specific LTG: Pt will improve functional communication by demonstrating increased verbal expression and auditory comprehension skills with 70% accuracy across 3 consecutive sessions. STG's: 1. Pt will complete targeted oral motor exercises (e.g., lip rounding, tongue protrusion, or articulation movements) with increased accuracy and coordination for x10 repetitions per exercise 2 times a week for 4 weeks. 2. Given verbal or visual cues , pt will follow one-step commands with 70% accuracy across 3 consecutive sessions. 3. Pt will complete automatic speech tasks with 70% accuracy , given minimal cues, across 3 consecutive sessions. 4. Pt will complete naming tasks, given a visual prompt, with 70% accuracy across 3 consecutive sessions. Senior Living Goals Diet Pureed with Liquids Thin Liquids Education Instructions provided PATIENT ADVOCATE discussed clinical observations made throughout bedside CSE and informal language evaluation, diet recommendations, compensatory strategies, and POC with pt, family, nursing, and CM, all of which expressed understanding. Pt/Caregiver able to recall information Able to recall/restate Reinforcement needed No Speech & Language HPI History Present Illness Description of Patient Problem PATIENT ADVOCATE pulled the following information from pt's chart: ER documentation- Patient presents for evaluation of a possible stroke. Patient has a past medical history of previous stroke with chronic right- sided deficits, history of hypertension, history of splenic artery aneurysm, family history of dementia and cardiovascular disease, and most recently diagnosed with left breast cancer. Her functional baseline up until just a few days ago is patient does have slight slurring of her speech but is awake alert and oriented person place and circumstance and her speech can be understood and she answers questions appropriately. She can ambulate without assistance and medical practice administrator but has abnormal gait due to right lower extremity weakness. Last known well was Thursday and since then has been intolerant of oral intake with vomiting increasing global ischemia and now cannot walk without assistance. She has worsening of her slurred speech and appears to understand questions but cannot answer due to garbled speech. No specific focal neurologic deficits or complaints including chest pain shortness of breath hemoptysis hematochezia melena hematemesis hematuria dysuria . Chest x-ray- FINDINGS: A single view of the chest was obtained. The heart and mediastinum are within normal limits. The lungs are clear. There is no pneumothorax. Brain MRI- IMPRESSION: 1. No mass, acute infarct or hydrocephalus 2. Mild atrophy and moderate chronic ischemic white matter changes Pt/Caregiver Concerns Caregiver states that pt had some speech difficulty after stroke, however was intelligible. Caregiver states that now pt is u/a to speak clearly, u/a to follow directions, and has developed an oral aversion to mechanical soft/regular foods and often expectorates food and gags. Rehab Services Assessed Speech therapy Is this evaluation r/t stroke? No General Information General Current Food Consistancy Regular,Thin Liquids Dentition Edentulous Oxygen Status Room Air Patient Orientation Person Ability to Follow Directions Poor Communication Ability Severe Impairment Dysphagia:Food Presentation Evaluation Food Type Pureed,Mechanical Soft,Liquid, Pudding Dysphagia Evaluation Mechanical Soft Pushed out of mouth,Difficulty Food Behavior Response chewing,Unable to form bolus, Pocketing Dysphagia Evaluation Summary A clinical bedside swallow evaluation was administered this afternoon with pt sitting upright in bed, on room air, and edentulous. Pt presents with severe aphasia, impacting pt's ability to follow one- step commands, answer questions, produce verbalizations, and participate in naming tasks. PATIENT ADVOCATE attempted to have pt complete a volitional cough, however pt was u/a. Caregiver stated pt was coughing while in ED and she produced a strong cough. PATIENT ADVOCATE administered the following consistencies: ice chips, thin liquid (water) via open cup and straw, pudding, puree, and mechanical soft. Pt demonstrated no overt s/sx of aspiration on any consistency administered. Pt expectorated ice chip and caregiver stated it may be too cold. Pt demonstrated adequate labial seal on thin liquid via open cup and straw, pudding, and puree trials. Pt exhibited WFL manipulation of bolus on pudding and puree trials. Pt expectorated mechanical soft trial before attempted to masticate and swallow, and began gagging while pocketing half of bolus. PATIENT ADVOCATE retrieved remaining bolus from pt's mouth. Caregiver stated that pt has been reacting in the same way while eating mechanical soft/ regular foods since last stroke, and states she expectorates and/or throws up food. Caregiver states she does not do this with pureed foods in home environment, and is able to swallow pureed foods. PATIENT ADVOCATE recommends pureed foods/thin liquid w/ compensatory strategies including sitting upright during/30-60 mins after meal, alt. bites and sips, small bites/sips, and slow rate of eating. PATIENT ADVOCATE will f/u for diet tolerance/texture analysis and to target auditory comprehension and verbal expression. Stroke Dysphagia Assessment PHYSICIAN CERTIFICATION: I certify the specified therapy services for Jenny Schaefer are required, authorized, and reviewed every 30 days.
--- NOTE | 2024-07-18 20:07 | P.HP_ITS ---
History of Present Illness *Admission Date: 07/18/24 *Reason for visit:: Generalized weakness *History of present illness: Jenny Schaefer is a 64-year-old female with a medical history significant for CVA with right-sided residual deficits/aphasia, hypertension, hyperlipidemia who presents from home due to dysphagia, and generalized weakness. Family at bedside states patient had a stroke a year ago on CT scan (I could not find this) and has since had right-sided residual deficits, lower extremity weakness, and aphasia. They state since Thursday patient has had increased dysphagia and generalized weakness. Otherwise no other remarkable signs or symptoms. Workup in the ED significant for AGAP 16, UA strongly suggestive of UTI. Case discussed with ED provider and decision was made to admit patient for generalized weakness due to UTI, and worsening dysphagia. [facility] Disclaimer: The information contained in this section may have been updated after the patient was seen, as this information can be updated by other users. Medical History (Updated 07/18/24 @ 20:44 by Onel Elam MD) History of myocardial infarction History of stroke Breast cancer Hypertension Splenic artery aneurysm Surgical History No significant past surgical history Family History Father Heart attack Mother Heart attack Brother Cancer Sister Breast cancer Social History (Updated 07/18/24 @ 16:46 by Caryl East RN) Smoking Status: Never smoker alcohol intake: never current occupational status: disabled Travel in the last 8 weeks: None household members: children housing: house Have you lived/traveled outside [place] in past 30 days?: No Contact w/someone who lives/traveled outside [place] past 30 days?: No Exposure to someone with infectious disease in past 14 days?: No Do you have a fever (greater than 100.4 F or 38 C)?: No Have you tested positive for COVID-19: No Exposed to someone with COVID-19 in past 14 days?: No Do you have a sore throat?: No Do you have a cough?: No Do you have any weakness?: No Are you experiencing any nausea/vomitting?: No Do you have any diarrhea?: No Are you experiencing any unusual bleeding?: No Do you have any muscle aches/pain?: No Do you have any abdominal pain?: No Are you experiencing loss of taste or smell?: No Other Medical History Have you received the Flu Vaccine for this season: No Have you received the Pneumonia Vaccine: No Meds Home Medications and Allergies Home Medications ?Medication ?Instructions ?Recorded ?Confirmed ?Type aspirin 81 mg tablet,delayed 81 mg PO DAILY 10/01/23 07/18/24 History release rosuvastatin 10 mg tablet 10 mg PO DAILY #90 tabs 10/01/23 07/18/24 Rx furosemide 20 mg tablet (Lasix) 20 mg PO DAILY #90 tabs 06/07/24 07/18/24 Rx lisinopril 10 mg tablet 20 mg PO DAILY 07/18/24 07/18/24 History New Prescriptions to Start Prescriptions: Allergies Allergy/AdvReac Type Severity Reaction Status Date / Time ibuprofen (From Advil) Allergy Swelling Verified 07/15/24 12:21 of Lip/Tongue/Throat Exam Data for Last 24 hours Vital signs and Labs for Last 24 Hours: Temp Pulse Resp BP Pulse Ox O2 Del Method 98.1 F 93 H 18 137/76 98 Room Air 07/18/24 16:00 07/18/24 16:00 07/18/24 16:00 07/18/24 16:00 07/18/24 16:00 07/18/24 18:29 Laboratory Results - last 24 hr 07/18/24 12:20: WBC 6.9, RBC 3.95 L, Hgb 12.1 L, Hct 35.2 L, MCV 89.1, MCH 30.6, MCHC 34.4, RDW 12.0, Plt Count 232, MPV 12.7 H, Neut % (Auto) 62.8, Lymph % (Auto) 26.4, [place] % (Auto) 8.2, Eos % (Auto) 2.2, Baso % (Auto) 0.4, Neut # (Auto) 4.3, Lymph # (Auto) 1.8, [place] # (Auto) 0.6, Eos # (Auto) 0.2, Baso # (Auto) 0.0, PT 11.4, INR 1.02, Sodium 134 L, Potassium 4.0, Chloride 96 L, Carbon Dioxide 26, Anion Gap 16.0 H, BUN 21 H, Creatinine 1.00, Estimated Creat Clear 49, Estimated GFR 56 L, Est GFR ( Amer) 68, Glucose 147 H, Calcium 10.2, Magnesium 1.8, Total Bilirubin 0.8, AST 36 D, ALT 27 D, Alkaline Phosphatase 46, Troponin I 0.02, NT-Pro-B Natriuret Pep 430 H, Total Protein 7.8, Albumin 4.5, Globulin 3.3 H, Albumin/Globulin Ratio 1.4, Procalcitonin 0.066 07/18/24 12:27: Urine Color Yellow, Urine Appearance Clear, Urine pH 6.0, Ur Specific [place] 1.025, Urine Protein Trace, Urine Glucose (UA) Negative, Urine Ketones Trace, Urine Blood Negative, Urine Nitrate Positive A, Urine Bilirubin Negative, Urine Urobilinogen 0.2, Ur Leukocyte Esterase 2+ A, Urine RBC None, Urine WBC 10-20, Ur Squamous Epith Cells 3-5, Urine Bacteria 2+ 07/18/24 12:50: SARS-CoV-2 (PCR) Not detected, Influenza A Untype (PCR) Not detected, Influenza Type B (PCR) Not detected 07/18/24 15:35: Troponin I 0.02 I & O for Last 24 hours: Intake & Output 07/15/24 07/16/24 07/17/24 07/18/24 23:59 23:59 23:59 23:59 Intake Total 240 / 240 Output Total 0 / 0 Balance 240 / 240 Weight 59.024 kg Constitutional Constitutional: no acute distress Comments: Pleasantly aphasic. *Routine HEENT Exam Head: Present normocephalic Eye: Present EOMI and PERRL ENT: Present mucous membranes moist *Routine Neck Exam Neck: Present supple; Absent lymphadenopathy *Routine Respiratory Exam Respiratory: Present CTA bilaterally *Routine Cardiovascular Exam Cardiovascular: Present RRR *Routine Abdominal Exam Abdominal: Present soft and normoactive bowel sounds; Absent tenderness *Routine Rectal Exam Rectal:: deferred *Routine Genitalia Exam Genitalia:: deferred *Routine Extremities Exam Extremities: Absent cyanosis, clubbing or edema Comments: Residual right-sided weakness, right hand contracture. *Routine Skin Exam Skin: Present warm; Absent rash *Routine Neurological Exam Neurological: Present alert and oriented X3 Assessment and Plan *Assessment and plan (1) Urinary tract infection: Status: Acute Qualifiers: Hematuria presence: with hematuria Urinary tract infection type: site unspecified Qualified Code(s): N39.0 - Urinary tract infection, site not specified; R31.9 - Hematuria, unspecified Category: Medical Code(s): N39.0 - Urinary tract infection, site not specified (2) Stroke: Status: Acute Qualifiers: CVA mechanism: unspecified Qualified Code(s): I63.9 - Cerebral infarction, unspecified Category: Medical Code(s): I63.9 - Cerebral infarction, unspecified (3) Dysphagia: Status: Acute Category: Medical Code(s): R13.10 - Dysphagia, unspecified Plan Jenny Schaefer is a 64-year-old female with a medical history significant for CVA with right-sided residual deficits/aphasia, hypertension, hyperlipidemia who presents from home due to dysphagia, and generalized weakness. Family at bedside states patient had a stroke a year ago on CT scan (I could not find th is) and has since had right-sided residual deficits, lower extremity weakness, and aphasia. They state since Thursday patient has had increased dysphagia and generalized weakness. Otherwise no other remarkable signs or symptoms. Workup in the ED significant for AGAP 16, UA strongly suggestive of UTI. Case discussed with ED provider and decision was made to admit patient for generalized weakness due to UTI, and worsening dysphagia. #Generalized weakness #UTI ? UA grossly abnormal, urine culture pending. ? IV ceftriaxone day 1 pending cultures. ? PT/OT consulted, pending further recommendations. ? Follow-up #Dysphagia #History of CVA with right-sided residual deficits, aphasia ? Family states patient has had increased dysphagia since Thursday. Choking and regurgitation on food. Likely related to weakness from UTI. ? Speech therapy consulted, recommended pur?ed diet with thin liquids. ? Brain MRI did not show acute ischemic findings, but does show chronic white matter ischemic disease. CTA head/neck did not show acute ischemic findings or LVO. ? Continue home aspirin 81 mg, rosuvastatin 10 mg. #Hypertension ? Continue home lisinopril. #History of lumbar bulging discs ? Continue conservative therapy. Tylenol as needed. Full code DVT prophylaxis: Lovenox 40 mg
[2024-07-19] MEDS: 0.9 % SODIUM CHLORIDE 1000ML 1,000 ML 50 ML IV (00:18)
[2024-07-19 04:00] VITALS: BP 128/75; PULSE 94; RESP 16; TEMP 36.4; O2SAT 96; BMI 23.2
[2024-07-19 06:03] LABS: Basophils % 0.5 % (0.1-2.0); Eosinophils # 0.2 K/mm3 (0.0-0.4); Eosinophils % 2.5 % (0.1-12.0); Hematocrit 30.9 % (37.0-47.0); Lymphocytes # 1.6 K/mm3 (0.7-4.5); Lymphocytes % 24.9 % (10-50); Mean Corpuscular HGB Conc 34.6 g/dL (31.8-35.4); Mean Corpuscular Hemoglobin 30.8 pg (27.0-31.2); Mean Platelet Volume 12.7 fl (7.4-10.4); Monocytes # 0.6 K/mm3 (0.1-1.0); Monocytes % 8.9 % (1.7-9.3); Neutrophils # 4.1 K/mm3 (1.8-7.8); Neutrophils % 63.2 % (37.0-80.0); Platelet Count 208 K/mm3 (142-424); Red Blood Count 3.47 M/mm3 (4.20-5.40); Red Cell Distribution Width 12.2 % (11.5-17.5); White Blood Count 6.5 K/mm3 (4.8-10.8)
[2024-07-19 06:13] LABS: Chloride 103 mmol/L (98-107)
[2024-07-19 06:14] LABS: Albumin Level 4.1 g/dl (3.5-5.0); Potassium 3.7 mmoL/L (3.5-5.1); Sodium 137 mmol/L (136-145)
[2024-07-19 06:17] LABS: Alanine Aminotransferase 18 U/L (12-78); Albumin/Globulin Ratio 1.6 (1.1-1.8); Alkaline Phosphatase 50 U/L (38-126); Anion Gap 15.7 mEq/L (5-15); Aspartate Amino Transferase 31 U/L (14-36); Bilirubin,Total 0.8 mg/dl (0.2-1.3); Blood Urea Nitrogen 17 mg/dl (7-17); Calcium 9.1 mg/dl (8.4-10.2); Carbon Dioxide 22 mmol/L (22.0-30.0); Creatinine Clearance Estimated 51 mL/min (50-200); Estimated Glomerular Filt Rate 56 ml/min (>60); GFR (African American) 68 ML/MIN (>60); Globulin 2.5 g/dL (1.3-3.2); Glucose 91 mg/dl (74-100); Magnesium 1.7 mg/dl (1.6-2.3); Total Protein,Serum 6.6 g/dl (6.3-8.2)
[2024-07-19 06:20] LABS: Hemoglobin 10.7 g/dL (12.2-16.2)
--- NOTE | 2024-07-19 07:14 | PC.NURSE ---
Pt A/O x4. Pt has not voiced any complaints to staff throughout shift. Pt has slept well through night. Daughter at bedside. Call light within reach.
[2024-07-19 08:00] VITALS: BP 124/59; PULSE 95; RESP 16; TEMP 36.6; O2SAT 99
[2024-07-19] MEDS: ENOXAPARIN 40MG/0.4ML SYRINGE 40 MG SUBCUT (08:59)
[2024-07-19] MEDS: CEFTRIAXONE 1 GM 1 GM in 0.9 % SODIUM CHLORIDE 50 ML IV (08:59)
--- NOTE | 2024-07-19 10:15 | P.DS_ITS ---
General Admission date:: 07/18/24 Discharge date: 07/19/24 HPI HPI HPI: Jenny Schaefer is a 64-year-old female with a medical history significant for CVA with right-sided residual deficits/aphasia, hypertension, hyperlipidemia who presents from home due to dysphagia, and generalized weakness. Family at bedside states patient had a stroke a year ago on CT scan (I could not find this) and has since had right-sided residual deficits, lower extremity weakness, and aphasia. They state since Thursday patient has had increased dysphagia and generalized weakness. Otherwise no other remarkable signs or symptoms. Workup in the ED significant for AGAP 16, UA strongly suggestive of UTI. Case discussed with ED provider and decision was made to admit patient for generalized weakness due to UTI, and worsening dysphagia. Hospital Course Hospital Course Hospital Course: Jenny Schaefer is a 64-year-old female with a medical history significant for CVA with right-sided residual deficits/aphasia, hypertension, hyperlipidemia who presents from home due to dysphagia, and generalized weakness. Family at bedside states patient had a stroke a year ago on CT scan (I could not find this) and has since had right-sided residual deficits, lower extremity weakness, and aphasia. They state since Thursday patient has had increased dysphagia and generalized weakness. Otherwise no other remarkable signs or symptoms. Workup in the ED significant for AGAP 16, UA strongly suggestive of UTI. Case discussed with ED provider and decision was made to admit patient for generalized weakness due to UTI, and worsening dysphagia. Patient feeling better by morning. Will continue antibiotics for UTI. Urine growing gram-ne gative rods. Stable discharge home to complete antibiotic course. Problems addressed as follows: #Generalized weakness #UTI ? UA grossly abnormal, urine culture growing gram-negative rods greater than 100,000 CFU. Initiated on ceftriaxone. Received 2 doses. Will transition to Levaquin based on previous urine culture. Complete 5 days total of antibiotics. Therapy was consulted, recommends returning home with home health. Resumption of home health ordered. #Dysphagia #History of CVA with right-sided residual deficits, aphasia ? Family states patient has had increased dysphagia since Thursday prior to admission. Was reportedly choking or regurgitating on food. This is likely related to weakness from her UTI. Speech evaluated and recommended pur?ed diet with thin liquids. Brain MRI did not show acute ischemic findings, but does show chronic white matter ischemic disease. CTA head/neck did not show acute ischemic findings or LVO. Continue home aspirin 81 mg, rosuvastatin 10 mg. #Hypertension: Continue home lisinopril. #History of lumbar bulging discs: Continue conservative therapy. Tylenol as needed. Exam Data for Last 24 hours Vital signs and Labs for Last 24 Hours: Temp Pulse Resp BP Pulse Ox O2 Del Method 98 F 95 H 16 124/59 L 99 Room Air 07/19/24 08:00 07/19/24 08:00 07/19/24 08:00 07/19/24 08:00 07/19/24 08:00 07/19/24 08:00 Laboratory Results - last 24 hr 07/18/24 12:20: WBC 6.9, RBC 3.95 L, Hgb 12.1 L, Hct 35.2 L, MCV 89.1, MCH 30.6, MCHC 34.4, RDW 12.0, Plt Count 232, MPV 12.7 H, Neut % (Auto) 62.8, Lymph % (Auto) 26.4, Young % (Auto) 8.2, Eos % (Auto) 2.2, Baso % (Auto) 0.4, Neut # (Auto) 4.3, Lymph # (Auto) 1.8, Young # (Auto) 0.6, Eos # (Auto) 0.2, Baso # (Auto) 0.0, PT 11.4, INR 1.02, Sodium 134 L, Potassium 4.0, Chloride 96 L, Car bon Dioxide 26, Anion Gap 16.0 H, BUN 21 H, Creatinine 1.00, Estimated Creat Clear 49, Estimated GFR 56 L, Est GFR ( Amer) 68, Glucose 147 H, Calcium 10.2, Magnesium 1.8, Total Bilirubin 0.8, AST 36 D, ALT 27 D, Alkaline Phosphatase 46, Troponin I 0.02, NT-Pro-B Natriuret Pep 430 H, Total Protein 7.8, Albumin 4.5, Globulin 3.3 H, Albumin/Globulin Ratio 1.4, Procalcitonin 0.066 07/18/24 12:27: Urine Color Yellow, Urine Appearance Clear, Urine pH 6.0, Ur Specific [place] 1.025, Urine Protein Trace, Urine Glucose (UA) Negative, Urine Ketones Trace, Urine Blood Negative, Urine Nitrate Positive A, Urine Bilirubin Negative, Urine Urobilinogen 0.2, Ur Leukocyte Esterase 2+ A, Urine RBC None, Urine WBC 10-20, Ur Squamous Epith Cells 3-5, Urine Bacteria 2+ 07/18/24 12:50: SARS-CoV-2 (PCR) Not detected, Influenza A Untype (PCR) Not detected, Influenza Type B (PCR) Not detected 07/18/24 15:35: Troponin I 0.02 07/19/24 05:17: WBC 6.5, RBC 3.47 L, Hgb 10.7 L D, Hct 30.9 L, MCV 89.0, MCH 30.8, MCHC 34.6, RDW 12.2, Plt Count 208, MPV 12.7 H, Neut % (Auto) 63.2, Lymph % (Auto) 24.9, Young % (Auto) 8.9, Eos % (Auto) 2.5, Baso % (Auto) 0.5, Neut # (Auto) 4.1, Lymph # (Auto) 1.6, Young # (Auto) 0.6, Eos # (Auto) 0.2, Baso # (Auto) 0.0, Sodium 137, Potassium 3.7, Chloride 103, Carbon Dioxide 22, Anion Gap 15.7 H, BUN 17, Creatinine 1.00, Estimated Creat Clear 51, Estimated GFR 56 L, Est GFR ( Amer) 68, Glucose 91 D, Calcium 9.1, Magnesium 1.7, Total Bilirubin 0.8, AST 31, ALT 18 D, Alkaline Phosphatase 50, Total Protein 6.6, Albumin 4.1, Globulin 2.5, Albumin/Globulin Ratio 1.6 I & O for Last 24 hours: Intake & Output 07/16/24 07/17/24 07/18/24 07/19/24 23:59 23:59 23:59 23:59 Intake Total 240 / 240 247 / 247 Output Total 0 / 0 0 / 0 Balance 240 / 240 247 / 247 Weight 59.024 kg 55.877 kg Microbiology Reports for the Last 24 Hours: Microbiology 07/18/24 12:27 Urine,Clean Catch Urine Culture - Preliminary Gram Negative Rods Constitutional Constitutional: no acute distress, thin, chronically ill appearing and department coordinator perative *Routine HEENT Exam Head: Present normocephalic and atraumatic Eye: Present EOMI and PERRL ENT: Present mucous membranes moist Comments: Left-sided facial weakness, chronic residual deficit from stroke *Routine Neck Exam Neck: Present supple *Routine Respiratory Exam Respiratory: Present CTA bilaterally; Absent rhonchi, wheezes or crackles *Routine Cardiovascular Exam Cardiovascular: Present RRR *Routine Abdominal Exam Abdominal: Present soft and normoactive bowel sounds; Absent tenderness *Routine Rectal Exam Patient deferred: visual exam *Routine Exam Patient deferred: external exam *Routine Extremities Exam Extremities: Absent cyanosis or edema *Routine Skin Exam Skin: Present intact; Absent rash *Routine Neurological Exam Neurological: Present alert; Absent altered mental status Comments: Residual left-sided facial and right upper and lower extremity deficits from CVA. Contracture right hand. Unable to move right arm. 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 Results Data Completed and Pending Labs on day of discharge: Labs from last 24 hours 07/19/24 07/18/24 07/18/24 05:17 15:35 12:50 WBC 6.5 RBC 3.47 L Hgb 10.7 L D Hct 30.9 L MCV 89.0 MCH 30.8 MCHC 34.6 RDW 12.2 Plt Count 208 MPV 12.7 H Neut % (Auto) 63.2 Lymph % (Auto) 24.9 Young % (Auto) 8.9 Eos % (Auto) 2.5 Baso % (Auto) 0.5 Neut # (Auto) 4.1 Lymph # (Auto) 1.6 Young # (Auto) 0.6 Eos # (Auto) 0.2 Baso # (Auto) 0.0 PT INR Sodium 137 Potassium 3.7 Chloride 103 Carbon Dioxide 22 Anion Gap 15.7 H BUN 17 Creatinine 1.00 Estimated Creat Clear 51 Estimated GFR 56 L Est GFR ( Amer) 68 Glucose 91 D Calcium 9.1 Magnesium 1.7 Total Bilirubin 0.8 AST 31 ALT 18 D Alkaline Phosphatase 50 Troponin I 0.02 NT-Pro-B Natriuret Pep Total Protein 6.6 Albumin 4.1 Globulin 2.5 Albumin/Globulin Ratio 1.6 Procalcitonin Urine Color Urine Appearance Urine pH Ur Specific [place] Urine Protein Urine Glucose (UA) Urine Ketones Urine Blood Urine Nitrate Urine Bilirubin Urine Urobilinogen Ur Leukocyte Esterase Urine RBC Urine WBC Ur Squamous Epith Cells Urine Bacteria SARS-CoV-2 (PCR) Not detected Influenza A Untype (PCR) Not detected Influenza Type B (PCR) Not detected 07/18/24 07/18/24 12:27 12:20 WBC 6.9 RBC 3.95 L Hgb 12.1 L Hct 35.2 L MCV 89.1 MCH 30.6 MCHC 34.4 RDW 12.0 Plt Count 232 MPV 12.7 H Neut % (Auto) 62.8 Lymph % (Auto) 26.4 Young % (Auto) 8.2 Eos % (Auto) 2.2 Baso % (Auto) 0.4 Neut # (Auto) 4.3 Lymph # (Auto) 1.8 Young # (Auto) 0.6 Eos # (Auto) 0.2 Baso # (Auto) 0.0 PT 11.4 INR 1.02 Sodium 134 L Potassium 4.0 Chloride 96 L Carbon Dioxide 26 Anion Gap 16.0 H BUN 21 H Creatinine 1.00 Estimated Creat Clear 49 Estimated GFR 56 L Est GFR ( Amer) 68 Glucose 147 H Calcium 10.2 Magnesium 1.8 Total Bilirubin 0.8 AST 36 D ALT 27 D Alkaline Phosphatase 46 Troponin I 0.02 NT-Pro-B Natriuret Pep 430 H Total Protein 7.8 Albumin 4.5 Globulin 3.3 H Albumin/Globulin Ratio 1.4 Procalcitonin 0.066 Urine Color Yellow Urine Appearance Clear Urine pH 6.0 Ur Specific [place] 1.025 Urine Protein Trace Urine Glucose (UA) Negative Urine Ketones Trace Urine Blood Negative Urine Nitrate Positive A Urine Bilirubin Negative Urine Urobilinogen 0.2 Ur Leukocyte Esterase 2+ A Urine RBC None Urine WBC 10-20 Ur Squamous Epith Cells 3-5 Urine Bacteria 2+ SARS-CoV-2 (PCR) Influenza A Untype (PCR) Influenza Type B (PCR) Preliminary micro results at discharge 07/18/24 12:27 Urine Culture - Preliminary Urine,Clean Catch Gram Negative Rods DS: Diagnosis Discharge Diagnosis (1) Urinary tract infection: Status: Acute Code(s): N39.0 - Urinary tract infection, site not specified Qualifiers: Hematuria presence: with hematuria Urinary tract infection type: site unspecified Qualified Code(s): N39.0 - Urinary tract infection, site not specified; R31.9 - Hematuria, unspecified (2) Stroke: Status: Acute Code(s): I63.9 - Cerebral infarction, unspecified Qualifiers: CVA mechanism: unspecified Qualified Code(s): I63.9 - Cerebral infarction, unspecified (3) Dysphagia: Status: Acute Code(s): R13.10 - Dysphagia, unspecified Meds Home Medications and Allergies Home Medications ?Medication ?Instructions ?Recorded ?Confirmed ?Type aspirin 81 mg tablet,delayed 81 mg PO DAILY 10/01/23 07/18/24 History release rosuvastatin 10 mg tablet 10 mg PO DAILY #90 tabs 10/01/23 07/18/24 Rx furosemide 20 mg tablet (Lasix) 20 mg PO DAILY #90 tabs 06/07/24 07/18/24 Rx lisinopril 10 mg tablet 20 mg PO DAILY 07/18/24 07/18/24 History levofloxacin 750 mg tablet 750 mg PO DAILY #3 tabs 07/19/24 Rx New Prescriptions to Start Prescriptions: levofloxacin [place]or Allergies Allergy/AdvReac Type Severity Reaction Status Date / Time ibuprofen (From Advil) Allergy Swelling Verified 07/15/24 12:21 of Lip/Tongue/Throat Discharge Plan Disposition Patient Disposition: Home, Self-Care Condition: Fair Follow up Plan Follow up with: Rogelio Hernandez MD [Primary Care Provider] - 07/25/24 1:00 pm Prescriptions/Medication Reconciliation: New levofloxacin 750 mg tablet 750 mg PO DAILY Qty: 3 0RF Continued aspirin 81 mg tablet,delayed release (DR/EC) 81 mg PO DAILY rosuvastatin 10 mg tablet 10 mg PO DAILY Qty: 90 1RF furosemide [Lasix] 20 mg tablet 20 mg PO DAILY Qty: 90 3RF lisinopril 10 mg tablet 20 mg PO DAILY Other Ambulatory Orders: Rehab Eval, OP (Routine) Timeframe: 2 Days Facility: [facility] - Location: Physical Therapy [place] Ordered By: Ben Amor Problem Reconciliation Problems Reviewed?: Yes Patient Discharge Instructions ACTIVITY: Continue current activity DIET: continue same diet Patient Instructions: DI for Urinary Tract Infection (UTI), DI for Encephalopathy Print Language: Khmer Providers Primary Care Provider: Rogelio Hernandez Admit Provider: Onel Elam Attending Provider: Onel Elam
--- NOTE | 2024-07-19 10:41 | HMH.OTEV ---
OT Inpatient Evaluation Rehab OT IP Evaluation Start: 07/18/24 20:39 Freq: ONCE Status: Active Protocol: Document 07/19/24 10:21 [facility] (Rec: 07/19/24 10:41 [facility] [id number]) Rehab OT IP Assessment Subjective History Pt oriented x 2 on arrival. Pt's daughter present and supportive. Pt was admitted on 07/18/24 due to weakness. History and physical: Jenny Schaefer is a 64-year- old female with a medical history significant for CVA with right-sided residual deficits/aphasia, hypertension , hyperlipidemia who presents from home due to dysphagia, and generalized weakness. Family at bedside states patient had a stroke a year ago on CT scan (I could not find this) and has since had right-sided residual deficits, lower extremity weakness, and aphasia. They state since Thursday patient has had increased dysphagia and generalized weakness. Otherwise no other remarkable signs or symptoms. Workup in the ED significant for AGAP 16 , UA strongly suggestive of UTI. Case discussed with ED provider and decision was made to admit patient for generalized weakness due to UTI, and worsening dysphagia. Subjective Prior to being in the hospital , pt lived with her sons. Pt' s family assisted with all ADLS and she was dependent upon family for completion of IADLs. She did use a cane to complete short transfers with assistance from family. However, she also used a wheelchair for longer distances. Objective Patient Orientation Person,Birthday Right Upper Extremity Gross ROM Sev Limitation >75% Left Upper Extremity Gross ROM WFL Shoulder ROM Limitations Muscle Tone Elbow ROM Limitations Muscle Tone Wrist Limitations of Range of Motion Muscle Tone Bed Mobility bed mobility-scooting,bed mobility - supine/sit Assist Level Moderate x 1 (50% assist) Transfer Training Sit/Stand/Step Transfer Assist Level Moderate x 2 (50% assist) Rehab OT IP prob,goals,plan Problems Date of Evaluation: 07/19/24 OT IP Problems Bed Mobility,Transfers,Balance ,Self care,Safety Rehab Potential Rehab Potential Good Equipment Needs Assistive Devices Wheelchair Plan OT intervention Plan Bed Mobility,Transfers,Balance ,Self care,Safety,Therapeutic Exercise OT Plan Frequency Daily Duration LOS Discharge Goals Bed Mobility Ability Assistance x1 Sit to Stand Chair Transfer Ability Moderate x 1 (50% assist) Chair Transfer Ability Moderate x 1 (50% assist) Chair Transfer Technique Stand Step Pivot Chair Transfer Assistive Devices Fabricio Walker Feeding Ability Assist with Tray Set Up Lower Body Dressing Ability Moderate Assistance Upper Body Dressing Ability Minimal Assistance Bathing Ability Moderate Assistance Performing Toilet Hygiene Ability Moderate Assistance Overall Commode/Toilet Transfer Ability Moderate Assistance Commode/Toilet Transfer Technique Sit to/from Ambulatory Commode/Toilet Transfer Assistive Grab Bars Devices Oral Care Assist Moderate Assistance Decrease in Endurance Yes Discharge Plan OT Discharge Plan Pt will continue to be seen for OT services while at [facility]. Pt appears close to baseline with functional transfers and ADL independence. Pt can return home with family assistance once she is medically stable. Therapist does recommend OT evaluation upon returning home for continued skilled therapy . Eval Complexity Eval Charge Codes 46679 - Moderate Complexity PHYSICIAN CERTIFICATION: I certify the specified therapy services for Jenny Schaefer are required, authorized, and reviewed every 30 days.
--- NOTE | 2024-07-19 10:54 | HMH.PTEV ---
Physical Therapy Evaluation Rehab PT IP Evaluation Start: 07/18/24 20:40 Freq: ONCE Status: Active Protocol: Document 07/19/24 10:39 [facility] (Rec: 07/19/24 10:54 [facility] [id number]) Subjective/History History History 64-year-old female with a medical history significant for CVA with right-sided residual deficits/aphasia, hypertension, hyperlipidemia who presents from home due to dysphagia, and generalized weakness. Family at bedside states patient had a stroke a year ago on CT scan (I could not find this) and has since had right-sided residual deficits, lower extremity weakness, and aphasia. They state since Thursday patient has had increased dysphagia and generalized weakness. Otherwise no other remarkable signs or symptoms. Workup in the ED significant for AGAP 16 , UA strongly suggestive of UTI. Case discussed with ED provider and decision was made to admit patient for generalized weakness due to UTI, and worsening dysphagia. Pt daughter is present on room and supplements hx this am. They report pt lives with family, no FELICITY the home, and she generally is able to ambulate short distances in the home with assistance and cane. She does have w/c that is used for all mobility outside of the home and she requires significant assistance with all ADLs at baseline. Subjective Subjective Pt with limited speech this am , which is her baseline per family, she states, I'm going home. She does agree to mobility assessment, [facility] How much help from another person do you currently need... Turning from your back to your side A little while in a flat bed without using bedrails? Moving from lying on back to sitting on A little the side of a flat bed without using bedrails? Moving to and from a bed to a chair ( A lot including a wheelchair)? Standing up from a chair using your arms A lot ? (e.g., wheelchair, bedside chair) Walking in hospital room? A lot Climbing 3-5 steps with a railing? A lot Mobility Score 14 Mobility Level [facility] Mobility Calculator Mobility 4 Move to chair/ commode Rehab PT IP Eval Objective Appearance Patient Behavior Appropriate Patient Orientation Person,Place Difficulty following instructions none Speech Pattern Aphasic,Soft-Spoken Ambulation Patient Able to Ambulate Yes Ambulation Observation IP General Gait Pattern Observation Shuffling Step Ambulation Distance (feet) 6 Ambulation Assistive Device None Ambulation Ability Moderate x 2 (50% assist) Balance Ability to Arise Able, uses arms to help Sitting Balance Steady, safe Standing Balance Unsteady Dynamic Sitting Balance Ability Fair Dynamic Standing Balance Ability Poor Transfers Bed Transfer Ability Minimal x 2 (25% assist) Chair Transfer Ability Moderate x 2 (50% assist) Sit to Stand Bed Transfer Ability Moderate x 2 (50% assist) Sit to Stand Chair Transfer Ability Moderate x 2 (50% assist) Rehab PT IP prob,goals,plan Problems Date of Evaluation: 07/19/24 PT IP Problems Bed Mobility,Transfers,Gait Rehab Potential Rehab Potential Good Plan PT Intervention Plan Bed Mobility,Transfers,Gait PT Plan Frequency Daily Duration LOS Discharge Goals Bed Transfer Ability Minimal x 1 (25% assist) Sit to Stand Chair Transfer Ability Moderate x 1 (50% assist) Ambulation Distance (feet) 10 Discharge Plan PT Discharge Plan Pt is currently appropriate to return home once medically stable for d/c. Recommend home health therapy after return home. Skilled acute therapy is indicated to improve transfers, strength, and ambulation in order to return pt to [facility]. Eval Complexity Eval Charge Codes 64265 - High Complexity PHYSICIAN CERTIFICATION: I certify the specified therapy services for Jenny Schaefer are required, authorized, and reviewed every 30 days.
[2024-07-19] MEDS: MAGNESIUM SULFATE IN WATER 2 GM/50 ML PIGGYBACK IV (11:18)
--- NOTE | 2024-07-20 10:30 | SW/DCPLANNER ---
Spoke with patients daughter on the phone. Patients daughter stated that she is doing well. Patients daughter stated that she is aware of her moms upcoming appointments. Patients daughter stated that they were able to hot die picker her moms new medicine from [facility]. Patients daughter stated that they have no concerns or questions at this time. Tisha Jensen
== END 2024-07-19 12:55 | disposition home or self-care (01) ==
LOC: ER 13:52 → 2ND 14:17
PROVIDERS: Physician Assistant; Admitting Provider Student in an Organized Health Care Education/Training Program; Emergency Provider Emergency Medicine; PCP Family Medicine; Visit Provider Student in an Organized Health Care Education/Training Program
DX: N39.0 Urinary tract infection, site not specified (principal); R53.1 Weakness; I69.351 Hemiplegia and hemiparesis following cerebral infarction affecting right dominant side; R13.10 Dysphagia, unspecified; I10 Essential (primary) hypertension; E78.5 Hyperlipidemia, unspecified; M51.369 Other intervertebral disc degeneration, lumbar region without mention of lumbar back pain or lower extremity pain; Z80.3 Family history of malignant neoplasm of breast; Z80.9 Family history of malignant neoplasm, unspecified; Z82.49 Family history of ischemic heart disease and other diseases of the circulatory system; Z79.899 Other long term (current) drug therapy; Z79.82 Long term (current) use of aspirin; Z88.6 Allergy status to analgesic agent
CPT/HCPCS: 36415; 70450; 70496; 70498; 70551; 71045; 80053; 81001; 83735; 83880; 84145; 84484; 85025; 85610; 87040; 87086; 87088; 87186; 87636; 92610; 93005; 97163; 97166; 99291; G0378; J0696; J1650; J2765; J3475; J7030; Q9967

== ENCOUNTER 2024-07-26 11:30 | Inpatient (IN) | payer OTHER, SELFPAY ==
[2024-07-15 12:32] VITALS: BMI 23.8
[2024-07-26] VITALS (20 sets, daily range): BP systolic 101–151; BP diastolic 53–85; PULSE 86–117; RESP 16–20; TEMP 36.1–38; O2SAT 95–100; BMI 24.0
[2024-07-26] MEDS: LACTATED RINGERS 1000ML 1,000 ML 25 ML IV (08:14)
--- NOTE | 2024-07-26 08:30 | NM_ITS ---
FINAL REPORT CLINICAL HISTORY: sentinel node injection, h/o lt breast cancer FINDINGS: SENTINEL NODE INJECTION HISTORY: Breast neoplasm FINDINGS: After informed consent was obtained and time-out procedure performed, approximately 1.58 mCi of technetium 99m sulfur colloid was injected intradermally into the left breast. Injections were performed in a periareolar fashion from the 9:00 to 3:00 positions clockwise. No films were obtained during this procedure. The patient tolerated the procedure with no immediate competition. IMPRESSION: [place] node injection of the left breast as discussed above. Films reviewed , interpreted and dictated by Dr. Ramirez. Transcribed by West Bernardo PA-C. Reviewed, Interpreted and Dictated by Pedro Ramirez MD Transcribed by YASMIN Rodriguez Authenticated and . [facility]
[2024-07-26] MEDS: TC99M SULF.COLLOID;1 DOSE (UP TO 20 MCI) IV (08:40)
--- NOTE | 2024-07-26 09:03 | P.PNANES_ITS ---
[facility] Disclaimer: The information contained in this section may have been updated after the patient was seen, as this information can be updated by other users. Medical History Orthopnea Stroke History of myocardial infarction History of stroke Breast cancer Hypertension Splenic artery aneurysm Surgical History No significant past surgical history Family History Father Heart attack Mother Heart attack Brother Cancer Sister Breast cancer Social History Smoking Status: Never smoker alcohol intake: never substance use type: denies use current occupational status: disabled Travel in the last 8 weeks: None household members: children housing: house [facility] Anesthesia Checklist Patient Identification Patient Identification: Arm Band and Verbal (Name & ) Structural Data Admitted From: Home Planned Operative Procedure/s: Left total Mastectomy with Sentinal lymph node biopsy Consent for Planned Operative Procedure(s) Verified: Yes Verified Documents: Surgical Consent and History and Physical NPO Status Verified Time NPO: 00:00 Additional verifications Patient : No Anesthesia Reactions: No Hx Blood Transfusions: No Blood Transfusion Reaction: No Airway Assessment Mallampati Score:: Class II Neurological Assessment Level of Consciousness: Awake, Alert, Appropriate and Follows Commands Hx Seizures: No Anesthesia Plan Anesthesia Risk discussed: Yes Anesthesia Plan: Verified ASA Class: III Anesthesia Type: General
[2024-07-26] MEDS: CEFAZOLIN SODIUM 2 GM in 0.9 % SODIUM CHLORIDE 100 ML IV (10:00)
--- NOTE | 2024-07-26 11:39 | HMH.PHAINT1 ---
Pharmacy Intervention Comments: MEDICATION RECONCILIATION COMPLETED ON PATIENT USING EXTERNAL FILL HISTORY FROM PHARMACY AND DISCHARGE SUMMARY FROM PREVIOUS ADMISSION. -BOSSMAN LUONG, BRIAND
--- NOTE | 2024-07-26 11:58 | EXP.GEN.HP ---
HPI HPI HPI: Patient presents for left mastectomy. I had originally seen her in consultation on 03/29/2024. Patient is a 64-year-old female from [place] with previous stroke and residual right hemiparesis who had been seen in the emergency department on 02/06/2024 for symptoms of sciatica with pain radiating down her left leg for several years.. She underwent CT scan of the T-spine and L-spine. Also when she was in the emergency department patient's family had noted a lump in the left breast. Reportedly patient had previously refused exams. Surgery was contacted at the time regarding this and arrangements were made for imaging and biopsy. She ultimately underwent ultrasound-guided biopsy of 2 cm lesion, spiculated, at the 10 o'clock position of the left breast on 03/15/2024 which revealed ER positive, GA positive, HER2/liliana negative invasive ductal carcinoma. On examination at that time she had an ill-defined area in the medial upper left breast. She underwent consultation with Dr. Sapp and it was felt that she would not be a candidate for breast conservation therapy given her medical comorbidities and limited performance status. Mastectomy was recommended. Patient had failed to keep numerous appointments subsequently. However she presents to the office at this time to discuss surgery. She has been seen by cardiology. [facility] Disclaimer: The information contained in this section may have been updated after the patient was seen, as this information can be updated by other users. Medical History Orthopnea Stroke History of myocardial infarction History of stroke Breast cancer Hypertension Splenic artery aneurysm Surgical History No significant past surgical history Family History Father Heart attack Mother Heart attack Brother Cancer Sister Breast cancer Social History (Updated 07/26/24 @ 11:48 by Caryl East RN) Smoking Status: Never smoker alcohol intake: never substance use type: denies use current occupational status: disabled Travel in the last 8 weeks: None household members: children housing: house Contact w/someone who lives/traveled outside US past 30 days?: No Exposure to someone with infectious disease in past 14 days?: No Do you have a fever (greater than 100.4 F or 38 C)?: No Have you tested positive for COVID-19: No Exposed to someone with COVID-19 in past 14 days?: No Do you have a sore throat?: No Do you have a cough?: No Do you have any weakness?: No Are you experiencing any nausea/vomitting?: No Do you have any diarrhea?: No Are you experiencing any unusual bleeding?: No Do you have any muscle aches/pain?: No Do you have any abdominal pain?: No Are you experiencing loss of taste or smell?: No Other Medical History Have you received the Flu Vaccine for this season: No Have you received the Pneumonia Vaccine: No Meds Home Medications and Allergies Home Medications ?Medication ?Instructions ?Recorded ?Confirmed ?Type aspirin 81 mg tablet,delayed 81 mg PO DAILY 10/01/23 07/26/24 History release rosuvastatin 10 mg tablet 10 mg PO DAILY #90 tabs 10/01/23 07/26/24 Rx furosemide 20 mg tablet (Lasix) 20 mg PO DAILY #90 tabs 06/07/24 07/26/24 Rx lisinopril 10 mg tablet 20 mg PO DAILY 07/18/24 07/26/24 History New Prescriptions to Start Prescriptions: Allergies Allergy/AdvReac Type Severity Reaction Status Date / Time ibuprofen (From Advil) Allergy Swelling Verified 07/26/24 07:47 of Lip/Tongue/Throat Exam Data for Last 24 hours Vital signs and Labs for Last 24 Hours: Temp Pulse Resp BP Pulse Ox O2 Del Method 98.0 F 92 H 18 122/60 100 Room Air 07/26/24 07:48 07/26/24 07:48 07/26/24 07:48 07/26/24 07:48 07/26/24 07:48 07/26/24 07:48 Constitutional Constitutional: no acute distress *Routine HEENT Exam Head: Present normocephalic Eye: Present EOMI ENT: Present mucous membranes moist Routine Chest/Breast/Axilla Exam Breast: Present mass *Routine Respiratory Exam Respiratory: Present CTA bilaterally *Routine Cardiovascular Exam Cardiovascular: Present RRR *Routine Abdominal Exam Abdominal: Present soft *Routine Rectal Exam Rectal:: deferred *Routine Genitalia Exam Genitalia:: deferred Assessment and Plan *Assessment and plan (1) Invasive ductal carcinoma of breast, female: Status: Acute Qualifiers: Laterality: left Qualified Code(s): C50.912 - Malignant neoplasm of unspecified site of left female breast Category: Medical Code(s): C50.919 - Malignant neoplasm of unspecified site of unspecified female breast Plan Plan to proceed with left total mastectomy with sentinel lymph node biopsies
--- NOTE | 2024-07-26 12:01 | P.OP_ITS ---
Date of procedure: 07/26/24 Pre-op Diagnosis:: Invasive ductal carcinoma left upper medial breast Post-op Diagnosis:: Same Procedure performed:: Left total mastectomy with sentinel lymph node biopsies after sentinel lymph node mapping Surgeon:: Dean Ambriz MD Anesthesia: SENG Estimated blood loss (mL): 35 Clinical Note:: Patient presents for left total mastectomy and sentinel lymph node sampling. I had originally seen her in consultation on 03/29/2024. Patient is a 64-year-old female from [place] with previous stroke and residual right hemiparesis who had been seen in the emergency department on 02/06/2024 for symptoms of sciatica with pain radiating down her left leg for several years.. She underwent CT scan of the T-spine and L-spine. Also when she was in the emergency department patient's family had noted a lump in the left breast. Reportedly patient had previously refused exams. Surgery was contacted at the time regarding this and arrangements were made for imaging and biopsy. She ultimately underwent ultrasound-guided biopsy of 2 cm lesion, spiculated, at the 10 o'clock position of the left breast on 03/15/2024 which revealed ER positive, TN positive, HER2/liliana negative invasive ductal carcinoma. On examination at that time she had an ill-defined area in the medial upper left breast. She underwent consultation with Dr. Sapp and it was felt that she would not be a candidate for breast conservation therapy given her medical comorbidities and limited perf ormance status. Mastectomy was recommended. Patient had failed to keep numerous appointments subsequently. However she presents to the office at this time to discuss surgery. She has been seen by cardiology. Operative findings:: She had a couple of prominent sentinel lymph nodes in the left axilla with significant uptake. Background count was minimal. Breast lesion poorly defined Operative note:: Upon presentation patient was taken to radiology where she underwent injection of radioisotope tracer for sentinel lymph node mapping. She was then taken to the operating room. She she was positioned in supine position. General anesthesia was induced. She did undergo nerve block by anesthesiology. The left breast, axilla, and left upper extremity were prepped and draped in the standard surgical fashion. Skin was marked with a skin marker for planned elliptical incision and a elliptical fashion excising the nipple areolar complex. The gamma neoprobe was then used to identify the site of the greatest signal. There was somewhat of a palpable area underlying this. Mastectomy incision was performed. At the superior lateral aspect of the incision dissection was carried down through subcutaneous tissues and into the axillary fascia which was incised. Gamma neoprobe was then used to repeatedly identify a site of highest uptake. There was palpable confluence of at least couple of lymph nodes. These were grasped with an Allis clamp. They were dissected free from surrounding tissues using blunt and Metzenbaum dissection. The lymphatic vessels were carefully clipped and sharply divided. These 2 lymph nodes were then excised in their entirety. A target count was performed which revealed [id number]. Wound was then inspected and gamma neoprobe was used to perform repeated background counts which on several occasions reproduced the background count of 80. Therefore at this time attention was turned to total mastectomy. Superior skin flap was raised using electrocautery with dissection carried out in the subcutaneous plane excising the breast tissue from the superficial subcutaneous tissue using electrocautery. Dissection was carried down to the pectoralis muscle inferior to the clavicle. Dissection was carried out medially. Inferior skin flap was then raised in a similar fashion dissecting breast tissue free from the overlying skin and subcutaneous tissues down to the serratus muscle. The breast tissue was then excised from the underlying chest wall in the s ubfascial plane using electrocautery. Breast tissue was then excised from its remaining attachments of the chest wall in the inferior lateral location. Given the fact that the entire axillary contents were not dissected free the specimen was marked with suture placing long suture laterally and short suture superiorly. This was sent off as left breast mastectomy specimen. Wound was thoroughly irrigated. Hemostasis was achieved with electrocautery. A couple of KRISTY drains were placed through separate stab incisions with a lateral KRISTY drain placed within the region of the axilla and the medial KRISTY drain was placed inferiorly along the mastectomy bed. These were secured to the skin with 3-0 nylon. Deep dermal tissues were closed with a running 2-0 Vicryl. Skin was closed with dioni. Clean dry sterile dressing was applied. Condition: stable Disposition: PACU Complications:: None immediately apparent Breast Cancer SLNB Operation performed with curative intent: Yes Tracers used in non-neoadjuvant setting to identify nodes: Radioactive tracer Tracer used to identify nodes in neoadjuvant setting: N/A All nodes at end of dye-filled lymphatic channel removed: N/A All significantly radioactive nodes were removed: Yes All palpably suspicious nodes were removed: Yes Biopsy positive nodes marked prior to chemo were removed: N/A
--- NOTE | 2024-07-26 12:08 | P.PNANES_ITS ---
[facility] Anesthesia Record Part I Anesthesia Record I Intake, IV Amount: 600 Hydration: Adequate Estimated blood loss (mL): 50 Urine output (mL): 0 Blood Pressure: 151/85 SaO2: 99 Pulse Rate: 98 Airway Patency: Patent Respiratory Rate: 18 Temperature: 97 F Patient is:: Drowsy, Nasal O2 and Stable Stable to PACU at:: 12:11
[2024-07-26] MEDS: LACTATED RINGERS 1000ML 1,000 ML 75 ML IV (13:10)
--- NOTE | 2024-07-26 17:26 | PC.NURSE ---
Pt resting in bed. A&O x3. DSG to (L) breast is C/D/I. KRISTY drains x2 in place with serosanguineous drainage. #1 30 ml output. #2 30 ml output also.
[2024-07-26] MEDS: CEFAZOLIN SODIUM 1 GM in 0.9 % SODIUM CHLORIDE 50 ML IV (17:36)
--- NOTE | 2024-07-26 18:50 | EXP.MED.CON ---
History of Present Illness *History of present illness: Forwarded from general surgery note: Patient presents for left mastectomy. I had originally seen her in consultation on 03/29/2024. Patient is a 64-year-old female from [place] with previous stroke and residual right hemiparesis who had been seen in the emergency department on 02/06/2024 for symptoms of sciatica with pain radiating down her left leg for several years.. She underwent CT scan of the T-spine and L-spine. Also when she was in the emergency department patient's family had noted a lump in the left breast. Reportedly patient had previously refused exams. Surgery was contacted at the time regarding this and arrangements were made for imaging and biopsy. She ultimately underwent ultrasound-guided biopsy of 2 cm lesion, spiculated, at the 10 o'clock position of the left breast on 03/15/2024 which revealed ER positive, KY positive, HER2/liliana negative invasive ductal carcinoma. On examination at that time she had an ill-defined area in the medial upper left breast. She underwent consultation with Dr. Sapp and it was felt that she would not be a candidate for breast conservation therapy given her medical comorbidities and limited performance status. Mastectomy was recommended. Patient had failed to keep numerous appointments subsequently. However she presents to the office at this time to discuss surgery. She has been seen by cardiology. On my evaluation of patient, she is lying in bed comfortably without acute distress. She has mild tenderness over left breast without signs of drainage, bleeding. No other significant symptoms. [facility] Disclaimer: The information contained in this section may have been updated after the patient was seen, as this information can be updated by other users. Medical History Orthopnea Stroke History of myocardial infarction History of stroke Breast cancer Hypertension Splenic artery aneurysm Surgical History No significant past surgical history Family History Father Heart attack Mother Heart attack Brother Cancer Sister Breast cancer Social History (Updated 07/26/24 @ 11:48 by Caryl East RN) Smoking Status: Never smoker alcohol intake: never substance use type: denies use current occupational status: disabled Travel in the last 8 weeks: None household members: children housing: house Contact w/someone who lives/traveled outside US past 30 days?: No Exposure to someone with infectious disease in past 14 days?: No Do you have a fever (greater than 100.4 F or 38 C)?: No Have you tested positive for COVID-19: No Exposed to someone with COVID-19 in past 14 days?: No Do you have a sore throat?: No Do you have a cough?: No Do you have any weakness?: No Are you experiencing any nausea/vomitting?: No Do you have any diarrhea?: No Are you experiencing any unusual bleeding?: No Do you have any muscle aches/pain?: No Do you have any abdominal pain?: No Are you experiencing loss of taste or smell?: No Exam Data for Last 24 hours Vital signs and Labs for Last 24 Hours: Temp Pulse Resp BP Pulse Ox O2 Del Method O2 Flow Rate 97.7 F 111 H 18 114/60 95 Room Air 2 07/26/24 12:50 07/26/24 18:35 07/26/24 18:35 07/26/24 18:35 07/26/24 18:35 07/26/24 18:39 07/26/24 12:21 I & O for Last 24 hours: Intake & Output 07/23/24 07/24/24 07/25/24 07/26/24 23:59 23:59 23:59 23:59 Intake Total 935 / 935 Output Total 60 / 60 Balance 875 / 875 Weight 57.776 kg Meds Home Medications and Allergies Home Medications ?Medication ?Instructions ?Recorded ?Confirmed ?Type aspirin 81 mg tablet,delayed 81 mg PO DAILY 10/01/23 07/26/24 History release rosuvastatin 10 mg tablet 10 mg PO DAILY #90 tabs 10/01/23 07/26/24 Rx furosemide 20 mg tablet (Lasix) 20 mg PO DAILY #90 tabs 06/07/24 07/26/24 Rx lisinopril 10 mg tablet 20 mg PO DAILY 07/18/24 07/26/24 History hydrocodone 5 mg-acetaminophen 325 1 tab PO Q4H PRN Pain #17 tabs 07/26/24 Rx mg tablet New Prescriptions to Start Prescriptions: hydrocodone-acetaminophen Dean Ambriz Allergies Allergy/AdvReac Type Severity Reaction Status Date / Time ibuprofen (From Advil) Allergy Swelling Verified 07/26/24 07:47 of Lip/Tongue/Throat Results Labs Labs: All other labs normal. Assessment and Plan *Assessment and plan (1) Invasive ductal carcinoma of breast, female: Status: Acute Qualifiers: Laterality: left Qualified Code(s): C50.912 - Malignant neoplasm of unspecified site of left female breast Category: Medical Code(s): C50.919 - Malignant neoplasm of unspecified site of unspecified female breast Plan Jenny Schaefer is a 64-year-old female with a medical history significant for CVA with right-sided residual deficits/aphasia, hypertension, hyperlipidemia who presents for an outpatient left mastectomy. Also medicine team was consulted for medical management. #Left breast invasive ductal carcinoma ? Previous biopsy revealed ER positive, KY positive, HER2/liliana negative invasive ductal carcinoma. ? S/p left mastectomy by general surgery 07/26/2024. Patient tolerated procedure well. ? Hydrocodone as needed for pain control. ? Rest of management per general surgery. #History of CVA with right-sided residual deficits, aphasia ? Speech therapy previously recommended pur?ed diet with thin liquids. ? Continue home aspirin 81 mg, rosuvastatin 10 mg. #Hypertension ? Continue home lisinopril 40 mg. #History of lumbar bulging discs ? Continue conservative therapy. Tylenol as needed. Full code DVT prophylaxis: Lovenox 40 mg
[2024-07-27] VITALS: BP 110/95; PULSE 93; RESP 17; TEMP 37.1; O2SAT 97
[2024-07-27] MEDS: CEFAZOLIN SODIUM 1 GM in 0.9 % SODIUM CHLORIDE 50 ML IV (02:16)
[2024-07-27] MEDS: LACTATED RINGERS 1000ML 1,000 ML 75 ML IV (02:18)
[2024-07-27 04:00] VITALS: BP 134/68; PULSE 81; RESP 17; TEMP 36.6; O2SAT 98; BMI 26.7
--- NOTE | 2024-07-27 05:33 | PC.NURSE ---
V/s, alert to self and place. Daughter at bedside. Pt has had a past CVA-speech is unclear and garbled at times. KRISTY drains output monitored. IV ABX tolerated well by pt, no adverse reactions. PLan of care ongoing.
[2024-07-27 07:24] VITALS: BP 133/57; PULSE 98; RESP 14; TEMP 36.8; O2SAT 97
--- NOTE | 2024-07-27 08:23 | EXP.SURG.PN ---
Subjective Patient reports: no new complaints Narrative: Resting. Exam Data for Last 24 hours Vital signs and Labs for Last 24 Hours: Temp Pulse Resp BP Pulse Ox O2 Del Method O2 Flow Rate 98.3 F 98 H 14 133/57 L 97 Room Air 2 07/27/24 07:24 07/27/24 07:24 07/27/24 07:24 07/27/24 07:24 07/27/24 07:24 07/27/24 07:24 07/26/24 12:21 I & O for Last 24 hours: Intake & Output 07/24/24 07/25/24 07/26/24 07/27/24 11:59 11:59 11:59 11:59 Intake Total 1035 / 1035 Output Total 85 / 85 Balance 950 / 950 Weight 141 lb 8 oz Constitutional Constitutional: no acute distress Routine Chest/Breast/Axilla Exam Comments: Status post left mastectomy. Dressings in place. No spreading cellulitis. No hematoma. Luis-De La Paz drains with serosanguineous output. *Routine Respiratory Exam Respiratory: Absent respiratory distress *Routine Cardiovascular Exam Cardiovascular: Absent tachycardia Progress Note: A&P Assessment and plan (1) Invasive ductal carcinoma of breast, female: Status: Acute Assessment and plan: Overall, doing well status post mastectomy/axillary sentinel node biopsy Discharge home with close outpatient follow-up
--- NOTE | 2024-07-27 08:25 | P.DS_ITS ---
General Admission date:: 07/26/24 Discharge date: 07/27/24 HPI HPI HPI: Forwarded from admission H&P: Patient presents for left mastectomy. I had originally seen her in consultation on 03/29/2024. Patient is a 64-year-old female from [place] with previous stroke and residual right hemiparesis who had been seen in the emergency department on 02/06/2024 for symptoms of sciatica with pain radiating down her l eft leg for several years.. She underwent CT scan of the T-spine and L-spine. Also when she was in the emergency department patient's family had noted a lump in the left breast. Reportedly patient had previously refused exams. Surgery was contacted at the time regarding this and arrangements were made for imaging and biopsy. She ultimately underwent ultrasound-guided biopsy of 2 cm lesion, spiculated, at the 10 o'clock position of the left breast on 03/15/2024 which revealed ER positive, AL positive, HER2/liliana negative invasive ductal carcinoma. On examination at that time she had an ill-defined area in the medial upper left breast. She underwent consultation with Dr. Sapp and it was felt that she would not be a candidate for breast conservation therapy given her medical comorbidities and limited performance status. Mastectomy was recommended. Patient had failed to keep numerous appointments subsequently. However she presents to the office at this time to discuss surgery. She has been seen by cardiology. On my evaluation of patient, she is lying in bed comfortably without acute distress. She has mild tenderness over left breast without signs of drainage, bleeding. No other significant symptoms. Hospital Course Hospital Course Hospital Course: The patient underwent left mastectomy/axillary sentinel biopsy (please see operative report for detail). Postoperatively, she convalesced well and was deemed appropriate for discharge on the morning of postoperative day 1. Condition at discharge at the time of discharge patient was afebrile with stable normal vital signs. No evidence of postoperative complication (immediate infection, bleeding, etc.) noted. Exam Data for Last 24 hours Vital signs and Labs for Last 24 Hours: Temp Pulse Resp BP Pulse Ox O2 Del Method O2 Flow Rate 98.3 F 98 H 14 133/57 L 97 Room Air 2 07/27/24 07:24 07/27/24 07:24 07/27/24 07:24 07/27/24 07:24 07/27/24 07:24 07/27/24 07:24 07/26/24 12:21 I & O for Last 24 hours: Intake & Output 07/24/24 07/25/24 07/26/24 07/27/24 11:59 11:59 11:59 11:59 Intake Total 1035 / 1035 Output Total 85 / 85 Balance 950 / 950 Weight 141 lb 8 oz Constitutional Constitutional: no acute distress *Routine HEENT Exam Head: Present normocephalic Eye: Absent periorbital swelling ENT: Present mucous membranes moist *Routine Neck Exam Neck: Absent swelling Routine Chest/Breast/Axilla Exam Chest wall: Present tenderness (Postoperative) Breast: Present left mastectomy Axillae: Absent erythema *Routine Respiratory Exam Respiratory: Absent respiratory distress *Routine Cardiovascular Exam Cardiovascular: Absent tachycardia *Routine Abdominal Exam Abdominal: Present soft *Routine Rectal Exam Patient deferred: visual exam *Routine Exam Patient deferred: external exam *Routine Extremities Exam Extremities: Absent clubbing Routine Back/Spine/Pelvis Exam Back/Spine: Absent muscle spasm *Routine Skin Exam Skin: Absent erythema *Routine Neurological Exam Neurological: Present alert Routine Psychiatric Exam Psychiatric: Absent normal thought process DS: Diagnosis Discharge Diagnosis (1) Invasive ductal carcinoma of breast, female: Status: Acute Code(s): C50.919 - Malignant neoplasm of unspecified site of unspecified female breast Qualifiers: Laterality: left Qualified Code(s): C50.912 - Malignant neoplasm of unspecified site of left female breast Meds Home Medications and Allergies Home Medications ?Medication ?Instructions ?Recorded ?Confirmed ?Type aspirin 81 mg tablet,delayed 81 mg PO DAILY 10/01/23 07/26/24 History release rosuvastatin 10 mg tablet 10 mg PO DAILY #90 tabs 10/01/23 07/26/24 Rx furosemide 20 mg tablet (Lasix) 20 mg PO DAILY #90 tabs 06/07/24 07/26/24 Rx lisinopril 10 mg tablet 20 mg PO DAILY 07/18/24 07/26/24 History hydrocodone 5 mg-acetaminophen 325 1 tab PO Q4H PRN Pain #17 tabs 07/26/24 Rx mg tablet New Prescriptions to Start Prescriptions: hydrocodone-acetaminophen Dean Ambriz Allergies Allergy/AdvReac Type Severity Reaction Status Date / Time ibuprofen (From Advil) Allergy Swelling Verified 07/26/24 07:47 of Lip/Tongue/Throat Discharge Plan Disposition Patient Disposition: Home, Self-Care Follow up Plan Follow up with: Dean Ambriz MD [Staff Physician] - 08/02/24 Prescriptions/Medication Reconciliation: New hydrocodone-acetaminophen 5-325 mg Tablet 1 tab PO Q4H PRN (Reason: Pain) Qty: 17 0RF No Action aspirin 81 mg tablet,delayed release (DR/EC) 81 mg PO DAILY rosuvastatin 10 mg tablet 10 mg PO DAILY Qty: 90 1RF furosemide [Lasix] 20 mg tablet 20 mg PO DAILY Qty: 90 3RF lisinopril 10 mg tablet 20 mg PO DAILY Problem Reconciliation Problems Reviewed?: Yes Patient Discharge Instructions ACTIVITY: Continue current activity and Ambulate as tolerated DIET: advance to your usual diet Additional Instructions: Keep Luis-De La Paz drains engaged Obtain output measurements from Luis-De La Paz drains at least daily Patient Instructions: DI for Mastectomy, DI for Surgical Site Infection Print Language: Vincentian Providers Primary Care Provider: Rogelio Hernandez Admit Provider: Dean Ambriz Attending Provider: Dean Ambriz
[2024-07-27 13:37] VITALS: BP 128/77; PULSE 101; RESP 18; TEMP 36.3; O2SAT 100
--- NOTE | 2024-07-27 13:37 | P.PNANES_ITS ---
[facility] Anesthesia Record Part II Anesthesia Record Part II Discharge Time: 12:31 Destination: Medical Surgical Department PACU nurse assessment reviewed?: Yes Patient Condition:: Good Anesthesia Complications:: None Swallowing reflex intact?: Yes Airway Patency: Patent Cyanosis?: No Blood Pressure: 128/77 SaO2: 100 Respiratory Rate: 18 Pulse Rate: 101 Temperature: 97.3 F Mental Status: Alert & Oriented Pain level:: 0 Nausea and/or vomitting:: None Intake, IV Amount: 0 Hydration: Adequate
--- NOTE | 2024-07-27 15:20 | HMH.PTEV ---
Physical Therapy Evaluation Rehab PT IP Evaluation Start: 07/26/24 12:15 Freq: ONCE Status: Discharge Protocol: Document 07/27/24 09:20 HEATHER (Rec: 07/27/24 15:19 HEATHER [id number]) Subjective/History History History Pt is a 64 year-old female who presents for left total mastectomy and sentinel lymph node sampling. Pt had a previous stroke and residual right hemiparesis who had been seen in the emergency department on 02/06/2024 for symptoms of sciatica with pain radiating down her left leg for several years. She underwent CT scan of the T- spine and L-spine. When she was in the emergency department, patient's family had noted a lump in the left breast. 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 On examination at that time she had an ill-defined area in the medial upper left breast. Subjective Subjective Pt presents resting supine in bed and verbalizes willingness to attempt to ambulate. Her daughter in the room reported that she had been up to use the bathroom this AM. Upon transfer to sitting at EOB, pt notably leaned to the R. Pt required verbal and tactile cuing to stand and take several steps to the right. Pt was returned to bed with nsg button in reach. New diagnosis of cancer in past 12 Yes months? [facility] How much help from another person do you currently need... Turning from your back to your side A little while in a flat bed without using bedrails? Moving from lying on back to sitting on A lot the side of a flat bed without using bedrails? Moving to and from a bed to a chair ( A lot including a wheelchair)? Standing up from a chair using your arms A lot ? (e.g., wheelchair, bedside chair) Walking in hospital room? A lot Climbing 3-5 steps with a railing? A lot Mobility Score 13 Mobility Level [facility] Mobility Calculator Mobility 4 Move to chair/ commode Rehab PT IP Eval Objective Appearance Patient Behavior Appropriate Patient Orientation Person,Place Difficulty following instructions none Speech Pattern Clear,Soft-Spoken Ambulation Patient Able to Ambulate Yes Ambulation Observation IP General Gait Pattern Observation Shuffling Step,Decrease Stride Lngth (R),Decrease Stride Lngth (L) Ambulation Distance (feet) 3 Ambulation Ability Moderate x 2 (50% assist) Balance Ability to Arise Able, uses arms to help Sitting Balance Steady, safe Standing Balance Unsteady Dynamic Sitting Balance Ability Fair Dynamic Standing Balance Ability Zero Transfers Bed Transfer Ability Contact Guard/Hand Hold Sit to Stand Bed Transfer Ability Moderate x 2 (50% assist) Rehab PT IP prob,goals,plan Problems Date of Evaluation: 07/27/24 Discharge Plan PT Discharge Plan Pt is currently appropriate to return home once medically stable to d/c. Eval Complexity Eval Charge Codes 12953 - High Complexity PHYSICIAN CERTIFICATION: I certify the specified therapy services for Jenny Schaefer are required, authorized, and reviewed every 30 days.
--- NOTE | 2024-07-28 09:53 | SW/DCPLANNER ---
Spoke with patients daughter on the phone. Patients daughter stated that she is doing well and eating still having a little discomfort. Patients daughter stated that she is aware of her upcoming appointments. Patients daughter stated that she was able to tack picker her [facility]s new medicine [facility]. Patients daughter stated that they have no concerns or questions at this time. Tisha Jensen
--- OUTSIDE RECORDS SUMMARY | 2024-07-29 15:03 | XMS_ITS ---
Care Plan - [facility], [facility] Created on: July 29, 2024 Jenny Schaefer : 1960 Sex: Female Author Organization [facility] , [facility] Address [address] [place] [id number] Phone Care Team Providers Care Mold Maker Plaster Name Role Phone Mendel CASTRO, Jared Lane Unavailable [phone] Rogelio Hernandez MD Unavailable Unavailable
== END 2024-07-27 10:30 | disposition home or self-care (01) | DRG 580 ==
LOC: 2ND 11:31
PROVIDERS: Admitting Provider Surgery; PCP Family Medicine; Visit Provider Surgery
PROC: 07B60ZX Excision of Left Axillary Lymphatic, Open Approach, Diagnostic (ICD-10-PCS; principal; 2024-07-26 09:30)
DX: C50.812 Malignant neoplasm of overlapping sites of left female breast (principal); I69.351 Hemiplegia and hemiparesis following cerebral infarction affecting right dominant side; R47.01 Aphasia; M54.31 Sciatica, right side; R06.01 Orthopnea; I10 Essential (primary) hypertension; E78.5 Hyperlipidemia, unspecified; I72.8 Aneurysm of other specified arteries; M51.369 Other intervertebral disc degeneration, lumbar region without mention of lumbar back pain or lower extremity pain; I25.2 Old myocardial infarction; Z82.49 Family history of ischemic heart disease and other diseases of the circulatory system; Z80.3 Family history of malignant neoplasm of breast; Z80.9 Family history of malignant neoplasm, unspecified; Z79.82 Long term (current) use of aspirin; Z79.899 Other long term (current) drug therapy; Z88.8 Allergy status to other drugs, medicaments and biological substances
CPT/HCPCS: 38792; 96374; 97163; A9541; G0378; J0666; J0690; J1100; J1200; J2405; J3010; J7120

== ENCOUNTER 2024-08-26 09:08 | Outpatient (CLI) | payer OTHER, SELFPAY ==
--- NOTE | 2024-08-26 09:30 | XR_ITS ---
FINAL REPORT TECHNIQUE: Bone densitometry calculations of the lumbar spine and left hip were obtained. CLINICAL HISTORY: screening COMPARISON: None FINDINGS: Using L1-4, the bone mineral density of the spine is 0.685 g/cm2, corresponding to T-score of -3.3 and a Z score of -1.6. This is within the range of osteoporosis. Using the left hip, the bone mineral density of the femoral neck is 0.559 g/cm2, corresponding to a T-score of -2.6 and a Z-score of -1.2. This is within the range of osteoporosis. Using the right hip, the bone mineral density of the femoral neck is 0.569 g/cm?, corresponding to a T-score of -2.5 and a Z-score of -1.1. This is within the range of osteoporosis. NOTE: T-score: Standard deviation compared with peak bone mass of young adult mean. *Following the recommendations of the International Society of Bone densitometry, classification of hip BMD is based on the lower of two T-scores; total hip or femoral neck. IMPRESSION: 1. Bone mineral density of the lumbar spine within the range of osteoporosis. 2. Bone mineral density of the bilateral femoral necks within the range of osteoporosis. Reviewed, Interpreted and Dictated by Ree Norman MD Transcribed by Jamila Parisi Authenticated and [facility]
--- NOTE | 2024-08-26 10:00 | US_ITS ---
FINAL REPORT TECHNIQUE: Sonographic images of the thyroid gland were obtained in the longitudinal and transverse planes. CLINICAL HISTORY: Thyroid goiter COMPARISON: None FINDINGS: The right lobe measures 1.6 x 4.7 x 1.6 cm. The right lobe is mildly heterogeneous. There is a subcentimeter colloid cyst. The left lobe measures 1.8 x 4.5 x 1.7 cm. The left lobe is heterogeneous. There is an isoechoic nodule measuring 12 mm, TI-RADS category 3. The isthmus measures 3 mm. This is normal. IMPRESSION: Heterogeneous thyroid, consider thyroiditis. TIRADS category 3 left thyroid nodule. Based on size, there are no current recommendations regarding follow up. Reviewed, Interpreted and Dictated by Ree Norman MD Transcribed by Chanelle Woo Authenticated and [facility]
== END 2024-08-26 23:59 | disposition home or self-care (01) ==
LOC: RAD 09:08
PROVIDERS: PCP Family Medicine; Visit Provider Nurse Practitioner Family
DX: E04.9 Nontoxic goiter, unspecified (principal); M81.0 Age-related osteoporosis without current pathological fracture
CPT/HCPCS: 76536; 77080

== ENCOUNTER 2024-10-15 21:28 | Outpatient (CLI) | payer OTHER, SELFPAY ==
--- OUTSIDE RECORDS SUMMARY | 2024-10-15 21:30 | XMS_ITS | Clinical Summary ---
Author Organization [facility] Address [address] [place] [address] Care Team Providers Care Welt Cutter Name Role Phone Rogelio Hernandez MD Primary Care Provider [phone] Allergies Active Allergy Reactions Criticality Noted Date Comments Ibuprofen 05/29/2024 Medications No known medications Active Problems Problem Noted Date Diagnosed Date Influenza 05/30/2024 Social History Tobacco Use Types Packs/Day Years Used Date Smoking Tobacco: Never Smokeless Tobacco: Never Tobacco Cessation:Counseling Given: Not Answered Alcohol Use Standard Drinks/Week Comments Never 0 (1 standard drink = 0.6 oz pur e alcohol) Family and Community Support Answer John e Recorded Help with Day to Day Activities Not on file 10/13/2023 Feeling Lonely or Isolated Not on file 10/12 Educational Attainment Answer Date Papo rded Speak language other than [place] at home Not on file 10/13/2023 Want help with school or training Not on file 10/13/2023 Substance Use Answer Date Recorded Used prescription meds for non-medical reasons N ot on file 10/13/2023 Used illegal drugs past 12 months Not on file 10/13/2023 Comments Unknown Sex and Gender Information Value Date Recorded Sex Assigned at Not on file Legal Sex Female 5:08 PM CDT Gender Identity Not on file Sexual Orientation Not on file Last Filed Vital Signs Vital Sign Reading Time Taken Comments Blood Pressure 119/57 05/29/2024 11:45 PM EST Pulse 81 05/30/2024 12:14 AM EST Temperature 37.1 C (98.8 F) 05/29/2024 11:43 PM EST Respiratory Rate 18 05/29/2024 9:38 PM EST Oxygen Saturation 95% 05/30/2024 12:14 AM EST Inhaled Oxygen Concentration - - Weight 68 kg (150 lb) 05/29/2024 9:38 PM EST Height 154.9 cm (5' 1 ) 05/29/2024 9:38 PM EST Body Mass Index 28.34 05/29/2024 9:38 PM EST Plan of Treatment Health Maintenance Due Date Last Done Comments CT Colonography 1960 Colonoscopy 1960 Colorectal Cancer Screening 1960 FOBT/FIT 1961 Fit-DNA (Cologuard) 1961 Sigmoidoscopy 1961 Depression Screening (12+) 1973 HIV Screening 01/28/1976 Hepatitis C Screening 1979 Pap Smear 1982 Breast Cancer Screening 2001 Lipid Panel 2006 Pneumococcal 50+ years (1 of 1 - PCV) 2011 Shingles Vaccine (Zoster) (1 of 2) 2011 DTAP/TDAP/TD VACCINES (3 - Td or Tdap) 10/26/2023, 08/10/1997 COVID-19 VACCINE (2 - season) 12/20/202302/2021 Influenza Vaccine (Season Ended) 2024 Tobacco Cessation Counseling and Screening (12+) 05/29/2025 05/29/2024 Respiratory Syncytial Virus (RSV) Adult or (1 - 1-dose 75+ series) 01/28/2036 Insurance M[place]AMBERLAIN [id number] [employer] [facility] [place] [id number] [address] [place] [id number] [employer] [facility] Care Teams Welt Cutter Relationship Specialty Start Date End Date Rogelio Hernandez MD [address] [place] [id number] PCP - General Family Medicine 10/13/23
--- OUTSIDE RECORDS SUMMARY | 2024-10-15 21:30 | XMS_ITS | Referral Summary ---
Author Organization [facility] Address [address] [place] [address] Care Team Providers Care Laboratory Veterinarian Name Role Phone Rogelio Hernandez MD Primary Care Provider [phone] Allergies Active Allergy Reactions Criticality Noted Date [...] Date Papo rded Speak language other than [place] at home Not on file 10/13/2023 Want [...] 05/29/2024 9:38 PM EST Plan of Treatment Not on file Insurance [employer] [place] [facility] [facility] [facility] [place] [employer] [place] [facility] [place] Care Teams Laboratory Veterinarian Relationship Specialty Start Date End Date Rogelio Hernandez MD [address] [place] [id number] PCP - General Family Medicine 10/13/23
--- OUTSIDE RECORDS SUMMARY | 2024-10-15 21:30 | XMS_ITS | Clinical Summary ---
Author Organization Healthcare Address [address] [id number] Care Team Providers Care Rn Occupational Name Role Phone Rogelio Hernandez MD Primary Care Provider Sofia vailable Social History Tobacco Use Types Packs/Day Years Used Date Smoking Tobacco: Never Assessed Comments Unknown Sex and Gender Information Value Date Recorded Sex Assigned at Not on file Legal Sex Female 1:09 PM EDT Gender Identity Not on file Sexual Orientation Not on file Plan of Treatment Health Maintenance Due Date Last Done Comments [facility]-Depression Screening 1961 [facility]-HIV Screening 1961 [facility]-Hepatitis C Screening 1961 [facility]-/Child/Adol SDOH Screenings 1961 [facility]- SDOH Screenings 1979 [facility]-Adult SDOH Screenings 1979 [facility]-Pap Smear 1982 [facility]-Cervical Cancer Screening 1991 [facility]-HPV/Cotest 1991 CT Colonography 2006 Colonoscopy 2006 FIT-DNA 2006 FIT 2006 FOBT 2006 Sigmoidoscopy 2006 [facility]-Colorectal Cancer Screening 2006 [facility]-Breast Cancer Screening 2011 [facility]-Pneumococcal Vaccine: 50 + Years (1 of 1 - PCV) 2011 [facility]-Zoster Vaccines (1 of 2) 2011 [facility]-DTaP,Tdap,and Td Vaccine s (2 - Td or Tdap) 10/26/2023 10/25/2013, 08/10/1997 [id number] Vaccine (2 - season) 2023 06/28/2020 [facility]-Influenza Vaccine (Seaso n Ended) 2024 [facility]-RSV Vaccine: 60+ Years o r (1 - 1-dose 75+ series) 01/28/2036 HPV Vaccines Aged Out No longer eligi ble based on patient's age to complete this topic [facility]-HIB Vaccines Aged Out No longer e ligible based on patient's age to complete this topic [facility]-Hepatitis A Vaccines Aged Out No longer eligible based on patient's age to complete this topic [facility]-IPV Vaccines Aged Out No longer e ligible based on patient's age to complete this topic [facility]-Rotavirus Vaccines Aged Out No lo nger eligible based on patient's age to complete this topic Insurance [employer] Care Teams Rn Occupational Relationship Specialty Start Date End Date Rogelio Hernandez MD PCP - General Family Medicine 01/13/22
--- OUTSIDE RECORDS SUMMARY | 2024-10-15 21:30 | XMS_ITS ---
Author Name Auto Generated, Auto Generated Organization [facility] Address [address] [place] [address] Phone [phone] Care Team Providers Care Type Copy Examiner Name Role Phone Dangelo Thomas Unavailable [phone] Frances Wills Unavailable [phone] Kaleb, Radha Unavailable Vega Sharon Unavailable Mich Aragon Unavailable Rosa Montesinos Unavailable [phone] Functional Status No Results Mental Status No Results Allergies and Intolerances Name Onset Date Reaction Severity ibuprofen (Allergy) ThuOct 06 18:30:00 EDT 2024 Encounters Program Name Primary Diagnosis Admission Date/Time Dis charge Date/Time Home-based Hospice Unspecified protein-calorie malnutrition ThuOct 05 20:00:00 EDT 2024 Medications Medication Directions Start Date End Date oxyCODONE 5 mg tablet 1 Tablet Oral 2 Ti mes Daily, PRN Every 6 Hours Indication: pain ThuOct 15 00:00:00 EDT 2024 LORazepam 1 mg tablet 1 Tablet Oral Hour Of Sleep, PRN Every 6 Hours Indication: anxiety / agitation ThuOct 15 00:00:00 EDT 2024 lactulose 10 gram/15 mL oral solution 30 Milliliter Oral PRN 1 Time Daily Indication: constipation ThuOct 13 00:00:00 EDT 2024 LORazepam 1 mg tablet 1 Tablet Oral PRN Every 6 Hours Indication: anxiety/agitation give until liquid is available ThuOct 11 00:00:00 EDT 2024Oct 15 17:53:00 EDT 2024 oxyCODONE 5 mg/5 mL oral solution 5 Milliliter Oral PRN Every 6 Hours Indication: pain/dyspnea Mon Faheem 23 00:00:00 EDT 2024Oct 10 15:07:00 EDT 2024 oxyCODONE 5 mg tablet 1 Tablet Oral PRN Every 6 Hours Indication: pain/dyspnea ThuOct 10 00:00:00 EDT 2024 [facility] Oct 15 17:53:00 EDT 2024 Senna Laxative-Stool Softener 8.6 mg-50 mg tablet 1 Tablet Oral 1 Time Daily Indication: bowel regimen ThuOct 10 00:00:00 EDT 2024 oxyCODONE 5 mg/5 mL oral solution 7.5 Milliliter Oral PRN Every 6 Hours Indication: take 7.5 ml (7.5mg) by mouth every 6 hrs as needed for pain/dyspnea. ThuOct 09 00:00:00 EDT 2024Oct 09 11:35:00 EDT 2024 diphenhydrAMINE 12.5 mg/5 mL oral liquid 10 Milliliter Oral 4 Times Daily Indication: take 10 ml (25 mg) by mouth every 4 hrs as needed for itching. ThuOct 09:00:00 EDT 2024 oxyCODONE 5 mg tablet 1.5 Tablet Oral HI N Every 6 Hours Indication: take 1.5 tablet (7,5mg) by mouth every 6 hrs as needed for pain/dyspnea. ThuOct 09 00:00:00 EDT 2024Oct 10 08:18:00 EDT 2024 docusate sodium 100 mg tablet 1 Tablet Oral Every 1 Day Indication: constipation ThuOct 07 00:00:00 EDT 2024Oct 10 15:07:00 EDT 2024 LORazepam 2 mg/mL oral concentrate 0.3 Milliliter Oral PRN Every 8 Hours Indication: anxiety/restlessness ThuOct 06 00:00:00 EDT 2024Oct 10 15:38:00 EDT 2024 acetaminophen 160 mg/5 mL (5 mL) oral solution 5 Milliliter Oral PRN Every 6 Hours Indication: mild pain or fever mild pain or fever ThuOct 06 00:00:00 EDT 2024 oxyCODONE 5 mg/5 mL oral solution 5 Milliliter Oral PRN Every 6 Hours Indication: pain ThuOct 06 00:00:00 EDT 2024 [place] Oct 09 11:04:00 EDT 2024 LORazepam 1 mg tablet 1 Tablet Oral PRN Every 8 Hours Indication: anxiety/agitation give until liquid is available ThuOct 06 00:00:00 EDT 2024Oct 11 11:52:00 EDT 2024 Treatment Plan Problems No Known Problems Social History Social History Observation Description Date Smoking Status Former smoker ThuOct 05 00:00 :00 EDT 2024 Sex Female ThuJan 27 00:00 :00 EDT 1959 Vital Signs Vital Sign Measurement Date Systolic blood pressure 130 mm[Hg] ThuOct 11 07:00:00 EDT 2024 Diastolic blood pressure 72 mm[Hg] ThuOct 11 07:00:00 EDT 2024 Respiratory rate 24 /min ThuOct 11 07:0 0:00 EDT 2024 Heart rate 84 /min ThuOct 11 07:00 :00 EDT 2024 Systolic blood pressure 92 mm[Hg] ThuOct 10 09:15:00 EDT 2024 Diastolic blood pressure 66 mm[Hg] ThuOct 10 09:15:00 EDT 2024 Respiratory rate 16 /min ThuOct 10 09:1 5:00 EDT 2024 Heart rate 70 /min ThuOct 10 09:15 :00 EDT 2024 Systolic blood pressure 108 mm[Hg] ThuOct 13 12:15:00 EDT 2024 Diastolic blood pressure 60 mm[Hg] ThuOct 13 12:15:00 EDT 2024 Heart rate 92 /min ThuOct 13 12:15 :00 EDT 2024 Body height 61 [in_i] ThuOct 06 13:00 :00 EDT 2024 Body weight 100 [lb_av] ThuOct 06 13:00 :00 EDT 2024 Systolic blood pressure 118 mm[Hg] Thu 19 13:00:00 EDT 2024 Diastolic blood pressure 60 mm[Hg] Thu 19 13:00:00 EDT 2024 Respiratory rate 18 /min Thu 19 13:0 0:00 EDT 2024 Heart rate 78 /min ThuOct 06 13:00 :00 EDT 2024 Reason for Referral
[2024-10-15 21:37] LABS: Microscopic,Cath URINE MICROSCOPIC (MICROSCOPIC)
[2024-10-15 21:41] LABS: Appearance,Urine/Cath CLEAR (Clear); Bilirubin,Cath Negative (Negative); Blood, Urine/Cath 1+ (Negative); Color,Urine/Cath YELLOW (Yellow); Glucose,Urine/Cath (UA) Negative (Negative); Ketones,Urine/Cath Negative (Negative); Leukocyte Esterase,Cath Negative (Negative); Nitrate,Cath Negative (Negative); PH,Urine/Cath 5.5 (5.0-8.5); Protein,Urine/Cath TRACE (Negative); Specific Gravity, Urine/Cath 1.025 (1.005-1.030); Urobilinogen,Cath 0.2 EU/dl (0.2)
[2024-10-15 21:57] LABS: Bacteria,Urine/Cath 2+ /lpf; WBC,Urine/Cath 20-50 #/hpf (0-3)
[2024-10-15 21:58] LABS: Yeast,Urine/Cath 4+
== END 2024-10-15 23:59 | disposition home or self-care (01) ==
LOC: LAB.DROPOF 21:29
PROVIDERS: PCP Family Medicine; Visit Provider Family Medicine
DX: N39.0 Urinary tract infection, site not specified (principal)
CPT/HCPCS: 81001; 87086